=== PATIENT | male | born 1965 | race Caucasian/White ===

== ENCOUNTER 2023-02-16 07:37 | Day surgery (SDC) | payer MEDICAID, SELFPAY ==
[2023-02-16 07:55] VITALS: BP 142/91; PULSE 71; RESP 16; TEMP 36.4; O2SAT 97
[2023-02-16 08:01] LABS: Prothrombin Time 39.4 sec (9.0-11.6)
[2023-02-16 08:02] LABS: INR 4.02
[2023-02-16 08:18] VITALS: BP 94/66; PULSE 65; RESP 20; TEMP 36.3; O2SAT 99
--- NOTE | 2023-02-16 08:23 | W.PM.PROCNOT ---
Date of procedure: 02/16/23 Procedure: Left Lumbar 4/5 & 5/S1 facet injection Preop diagnosis includes pain secondary to lumbar spondylosis, Postop diagnosis same Under fluoroscopic guidance Solution injected: 2millilitersMarcaine 0.25% Anesthesia :none Immediate complications none Time out process compliant After informed consent obtained from the patient placed in the Prone proposition . area was prepped and draped in a sterile fashion using betadine. 25 gauge spinal needle inserted over each of the above mentioned target areas . [place] were directed towards the target under fluoroscopic guidance . after encountering each of the targets , no indication of intravascular intraneuronal or intrathecal needle tip placement. Then 0 .5 to 1 Milliliter was injected at each level. [place] removed postoperatively. patient transferred to recovery in stable condition to be discharged home after meeting criteria Surgeon: Kajal Donald
--- NOTE | 2023-02-16 10:29 | PC.NURSE ---
Procedure cancelled due to increased PT/INR, per Dr. Donald who spoke with patient at bedside.
== END 2023-02-16 08:30 | disposition home or self-care (01) ==
LOC: SURGOUT 07:37
PROVIDERS: PCP Family Medicine; Visit Provider Anesthesiology Pain Medicine
PROC: (CPT 64493; principal; 2023-02-16 08:40)
DX: M47.816 Spondylosis without myelopathy or radiculopathy, lumbar region (principal); Z53.8 Procedure and treatment not carried out for other reasons; R79.1 Abnormal coagulation profile
CPT/HCPCS: 64493; 36415; 85610

== ENCOUNTER 2023-03-09 09:02 | Day surgery (SDC) | payer MEDICAID, SELFPAY ==
[2023-03-09 09:38] VITALS: BP 119/75; PULSE 68; RESP 16; TEMP 36.7; O2SAT 98
[2023-03-09 09:38] LABS: INR 2.48
--- NOTE | 2023-03-09 10:32 | W.PM.PROCNOT ---
Date of procedure: 03/09/23 Pre-op diagnosis: lumbar spondylosis Post-op diagnosis: same Procedure: Left lumbar 4/5, 5/sacral 1 facet injection Under fluoroscopic guidance Solution injected: 2millilitersMarcaine 0.25% Anesthesia :none Immediate complications none Time out process compliant After informed consent obtained from the patient placed in the Prone proposition . area was prepped and draped in a sterile fashion using betadine. 25 gauge spinal needle inserted over each of the above mentioned target areas . [place] were directed towards the target under fluoroscopic guidance . after encountering each of the targets , no indication of intravascular intraneuronal or intrathecal needle tip placement. Then 0 .5 to 1 Milliliter was injected at each level. [place] removed postoperatively. patient transferred to recovery in stable condition to be discharged home after meeting criteria Anesthesia: Local Surgeon: Kajal Donald
[2023-03-09 10:33] VITALS: RESP 20
[2023-03-09 10:34] VITALS: BP 118/76; PULSE 66; O2SAT 98
[2023-03-09] MEDS: BUPIVACAINE HCL 0.25% PF 25 MG/10 ML VIAL 4 ML INJ (10:34)
[2023-03-09 10:37] VITALS: BP 115/68; PULSE 63; O2SAT 98
== END 2023-03-09 10:44 | disposition home or self-care (01) ==
LOC: SURGOUT 09:03
PROVIDERS: PCP Family Medicine; Visit Provider Anesthesiology Pain Medicine
DX: M47.816 Spondylosis without myelopathy or radiculopathy, lumbar region (principal)
CPT/HCPCS: 36415; 64493; 64494; 85610

== ENCOUNTER 2023-03-18 08:40 | Outpatient (OUT) | payer MEDICAID, SELFPAY ==
--- NOTE | 2023-03-18 08:52 | PM.CN ---
Consult Note: HPI Data of Consult Patient: known to practice within the last 3 years Consult date: 03/18/23 Requesting Physician: JYOTHI TERRY NP Primary Care Provider: AMIRAH ZAPATA Consult Narrative Narrative: Patient was here for f/u of dx MBB left L4/5. L5/S1. He received no relief of pain. Pain is low back worse with sitting walking . Pain starts in left lumbar area and radiates to left leg down to ankle. He has been taking 600mg gabapentin HS. Order is for 300mg HS. He states the increase dose better controls his pain. He states he gets yearly labs at PCP. Nursing will request lab results. If kidney fx is ok, may increase gabapentin dose. We also discussed getting LS MRI and he is agreeable. He has tried adult daycare coordinator, medication therapy, and interventional measures without relief. He feels the baclofen is not working well for him anymore. We can stop baclofen ad start tizanidine. Denies adverse SE of medications. Medication regimen assists patient with being better able to perform ADLS. No new sensorimotor or bowel or bladder issues. Percocet prescribed by PCP. cc:: CC: JYOTHI TERRY NP Review of Systems ROS Status of ROS 10 or more systems reviewed and unremarkable except as noted in history and below Musculoskeletal Reports: back pain PFSH PFSH Medical History Surgical History Meds Home Medications and Allergies Home Medications Medication Instructions Recorded Confirmed Type acetaminophen 325 mg tablet (Aphen) 325 mg PO Q6H PRN pain 02/09/23 03/09/23 History aspirin 81 mg tablet,delayed 81 mg .QD 02/09/23 History release baclofen 20 mg tablet 20 mg TID 02/09/23 History cholecalciferol (vitamin D3) 25 1,000 unit PO DAILY 02/09/23 03/09/23 History mcg (1,000 unit) capsule (Vitamin D3) gabapentin 300 mg capsule 600 mg .HS 02/09/23 History lisinopril 20 1 tab QDAY 02/09/23 History mg-hydrochlorothiazide 25 mg tablet metoprolol tartrate 25 mg tablet 12.5 mg PO .BID' 02/09/23 03/09/23 History omeprazole 40 mg capsule,delayed 40 mg .QD 02/09/23 History release rosuvastatin 20 mg tablet (Crestor) 20 mg PO DAILY 02/09/23 03/09/23 History vitamin B complex (B 1 tab PO DAILY 02/09/23 03/09/23 History Complex-Vitamin B12 tablet) warfarin 4 mg tablet 4 mg PO DAILY 02/09/23 03/09/23 History Allergies Allergy/AdvReac Type Severity Reaction Status Date / Time codeine Allergy Vomiting Verified 03/09/23 09:33 Exam Constitutional Documenting provider has reviewed patient's vital signs: yes Common normals: no apparent distress, average body habitus, oriented x3, no limitations, healthy appearing, alert and well nourished General appearance: cooperative, comfortable and well developed Orientation/consciousness: Yes awake, Yes oriented to person, Yes oriented to place and Yes oriented to time HENMT Common normals: normocephalic and moist oral mucous membranes Respiratory Common normals: normal respiratory effort, no retractions and no use of accessory muscles Effort & inspection: able to speak in complete sentences and symmetric chest movement Back & Pelvis Lumbar spine/lower back: normal to inspection, lumbar ROM normal, pain with ROM, paraspinal muscle tenderness and paraspinal muscle spasm Other: positive facet load L>R negative venkat negative SLR muscle strength 5/5 bilat with intact sensation Assessment and Plan Assessment and Plan (1) Muscle spasm: (2) Lumbar radiculopathy: (3) Lumbar spondylosis: Plan LS MRI see neurosurgeon as scheduled stop baclofen and start tizanidine may increase gabapentin to 600mg HS if kidney fx ok
== END 2023-03-18 08:41 | disposition home or self-care (01) ==
LOC: PM 08:41
PROVIDERS: PCP Family Medicine; Visit Provider Nurse Practitioner
DX: M62.838 Other muscle spasm (principal); M47.26 Other spondylosis with radiculopathy, lumbar region
CPT/HCPCS: G0463

== ENCOUNTER 2023-04-14 13:24 | Outpatient (OUT) | payer MEDICAID, SELFPAY ==
--- NOTE | 2023-04-14 14:00 | MR_ITS ---
[address] [address] Patient Name: MARIE BOND MRN: [facility]:[id number] date: 1965 Sex: M Assigned Patient Location: MRI Current Patient Location: Accession/Order Number: [id number] Exam Date: 04/14/2023 14:00 Report Date: 04/15/2023 09:29 At the request of: JYOTHI TERRY Procedure: MR lumbar spine wo con EXAM: MR lumbar spine wo con CLINICAL INDICATION: Lumbar Radiculopathy COMPARISON: Lumbar spine radiographs 12/28/2022. TECHNIQUE/PROTOCOL: Noncontrast lumbar spine MR protocol (Sagittal T1, T2, STIR and axial T1, T2 sequences). FINDINGS: Five lumbar-type vertebral bodies with maintained heights and alignment. Pedicles are congenitally shortened. Normal marrow signal. No acute prevertebral or paraspinal soft tissue abnormalities. Conus terminates at the inferior L1 endplate. Visualized distal spinal cord and the cauda equina are morphologically normal. Slightly prominent epidural lipomatosis. Multilevel spondylotic changes include diffuse disc desiccation and varying degrees of intervertebral disc height loss, osteophytic ridging, and facet/ligamentum flavum hypertrophy. T12-L1: No disc bulge or herniation. No high-grade spinal canal or foraminal narrowing. L1-L2: Small disc bulge indents the ventral thecal sac. This in conjunction with epidural lipomatosis together result in mild spinal canal narrowing. Mild bilateral foraminal narrowing. Mild bilateral facet/ligamentum flavum hypertrophy. L2-L3: Small disc bulge indents the ventral thecal sac. This in conjunction with epidural lipomatosis together result in mild spinal canal narrowing. Superimposed left foraminal disc protrusion results in advanced left foraminal narrowing. Mild right foraminal narrowing. Mild bilateral facet/ligamentum flavum hypertrophy. Small left facet joint effusion. L3-L4: Small disc bulge indents the ventral thecal sac and asymmetrically narrows the right greater than left lateral recesses. Mild spinal canal narrowing. Moderate to advanced right and moderate left foraminal narrowing. Mild bilateral facet/ligamentum flavum hypertrophy. L4-L5: Disc bulge with osteophytic ridging together indent the ventral thecal sac. This in conjunction with mild bilateral facet/ligamentum flavum hypertrophy overall results in moderate spinal canal narrowing. Advanced right and moderate to advanced left foraminal narrowing. L5-S1: No disc bulge or herniation. Epidural lipomatosis contributes to moderate spinal canal narrowing. Mild bilateral foraminal narrowing. MR/MR lumbar spine wo con IMPRESSION: 1. Multilevel spondylotic changes are superimposed on congenitally shortened pedicles and epidural lipomatosis. Spinal canal narrowing is moderate at L4-L5. 2. Foraminal narrowing is advanced on the left at L2-L3 and on the right at L4-L5. Foraminal narrowing is moderate to advanced on the right at L3-L4 and on the left at L4-L5. Electronically authenticated by: CLARK WILKINSON Date: 04/15/2023 09:29
== END 2023-04-14 13:25 | disposition home or self-care (01) ==
LOC: MRI 13:24
PROVIDERS: PCP Family Medicine; Visit Provider Nurse Practitioner
DX: M54.16 Radiculopathy, lumbar region (principal)
CPT/HCPCS: 72148

== ENCOUNTER 2023-05-05 09:43 | Outpatient (OUT) | payer MEDICAID, SELFPAY ==
--- NOTE | 2023-05-05 10:26 | PM.CN ---
Consult Note: HPI Data of Consult Patient: known to practice within the last 3 years Requesting Physician: Flor Javier NP Primary Care Provider: AMIRAH ZAPATA Consult Narrative Reason for consult: back pain cc:: CC: Flor Javier NP Review of Systems ROS Status of ROS 10 or more systems reviewed and unremarkable except as noted in history and below Musculoskeletal Reports: back pain, neck pain and joint pain PFSH PFSH Medical History Surgical History Meds Home Medications and Allergies Home Medications Medication Instructions Recorded Confirmed Type acetaminophen 325 mg tablet (Aphen) 325 mg PO Q6H PRN pain 02/09/23 03/09/23 History aspirin 81 mg tablet,delayed 81 mg .QD 02/09/23 History release baclofen 20 mg tablet 20 mg TID 02/09/23 History cholecalciferol (vitamin D3) 25 1,000 unit PO DAILY 02/09/23 03/09/23 History mcg (1,000 unit) capsule (Vitamin D3) gabapentin 300 mg capsule 600 mg .HS 02/09/23 History lisinopril 20 1 tab QDAY 02/09/23 History mg-hydrochlorothiazide 25 mg tablet metoprolol tartrate 25 mg tablet 12.5 mg PO .BID' 02/09/23 03/09/23 History omeprazole 40 mg capsule,delayed 40 mg .QD 02/09/23 History release rosuvastatin 20 mg tablet (Crestor) 20 mg PO DAILY 02/09/23 03/09/23 History vitamin B complex (B 1 tab PO DAILY 02/09/23 03/09/23 History Complex-Vitamin B12 tablet) warfarin 4 mg tablet 4 mg PO DAILY 02/09/23 03/09/23 History Allergies Allergy/AdvReac Type Severity Reaction Status Date / Time codeine Allergy Vomiting Verified 03/09/23 09:33 Exam Constitutional Documenting provider has reviewed patient's vital signs: yes Common normals: no apparent distress, oriented x3, healthy appearing, alert and well nourished General appearance: cooperative HENMT Common normals: normocephalic, hearing grossly normal bilaterally and moist oral mucous membranes Head and scalp: normocephalic Eye Common normals: PERRL Pupil: PERRL Neck & C-Spine Common normals: full ROM General: normal visual inspection Chest Common normals: inspection of chest normal Respiratory Common normals: normal respiratory effort, no retractions and no use of accessory muscles Back & Pelvis Lumbar spine/lower back: ROM limited, pain with ROM and straight leg raise negative bilaterally Sacroiliac joints: SI joint(s) abnormal Other: positive facet loading. Left SIJ tender over PSIS, pain with FABERS intermittent left thigh pain and altered sensation, intermittent shooting pain to left knee Extremity Common normals: normal to inspection and full ROM Neuro Common normals: oriented x3, CN's II-XII intact bilaterally, moves all extremities, no focal motor deficits, no sensory deficits noted and deep tendon reflexes 2+ bilaterally Sensorium/orientation: alert Gait (neuro): antalgic Motor exam: strength 5/5 throughout and no movement abnormalities noted Psych Common normals: mental status grossly normal, thought process normal, cooperative, affect normal, speech normal and activity/motor behavior normal Speech: normal speech Thought process: normal thought process Results Additional Findings Additional findings: I have checked an OARRS report on this patient today and there are no aberrancies noted in the prescribing history.?? A drug screen was completed and reviewed within the last year, and if there has not been a drug screen completed we ordered one today to monitor higher risk, state monitored pain medication use. As part of providing excellent, safe, comprehensive care, the following was completed at our patient's visit: 1. A medication reconciliation and review to ensure accurate knowledge of current/active medications, including asking our patients to inform us about any [id number] medications or herbal remedies/nutritional supplements/alternative remedies. 2. A review to specifically ensure our patients have had annual screening for: elevated body mass index (BMI), tobacco use, screening for depression, and screening for unhealthy alcohol use. When screening is concerning, patients are provided with education and the specific recommendation to discuss the concerning health issue and treatment options with their primary care provider. Assessment and Plan Assessment and Plan (1) Lumbar stenosis: (2) Lumbar radiculopathy: (3) Muscle spasm: (4) Anxiety: Plan MRI of lumbar spine reviewed, moderate spinal canal narrowing at L4-5, moderate to advanced foraminal narrowing at L2-5 levels continue current medications, tolerating regimen well without side effects schedule bilateral TFESI at L3-4 under fluoroscopy with PO valium f/u after injection, consider left SIJ workup in the future
== END 2023-05-05 09:44 | disposition home or self-care (01) ==
LOC: PM 09:43
PROVIDERS: PCP Family Medicine; Visit Provider Nurse Practitioner
DX: M54.16 Radiculopathy, lumbar region (principal); M62.838 Other muscle spasm; F41.9 Anxiety disorder, unspecified; M48.061 Spinal stenosis, lumbar region without neurogenic claudication
CPT/HCPCS: G0463

== ENCOUNTER 2023-05-24 07:40 | Day surgery (SDC) | payer MEDICAID, SELFPAY ==
[2023-05-24 07:55] VITALS: BP 146/85; PULSE 81; RESP 16; TEMP 36.2; O2SAT 97
[2023-05-24 08:15] LABS: Prothrombin Time 30.8 sec (9.0-11.6)
[2023-05-24] MEDS: 0.9 % SODIUM CHLORIDE 10 ML INJ (08:52)
[2023-05-24] MEDS: DEXAMETHASONE SODIUM PHOSPHATE 10 MG/ML VIAL INJ (08:52)
[2023-05-24] MEDS: BUPIVACAINE HCL 0.25% PF 25 MG/10 ML VIAL INJ (08:52)
[2023-05-24] MEDS: LIDOCAINE HCL 2% PF 100 MG/5 ML VIAL INJ (08:53)
[2023-05-24] MEDS: IOHEXOL 240 MG/ML - 10 ML VIAL INJ (08:53)
--- NOTE | 2023-05-24 08:54 | W.PM.PROCNOT ---
Date of procedure: 05/24/23 Pre-op diagnosis: Lumbar stenosis with neurogenic claudication Post-op diagnosis: same as pre-op Procedure: Procedure: Bilateral L3-4 transforaminal epidural steroid injection Medications: Bupivacaine 0.25% 2cc, dexamethasone 10mg The patient was seen and examined in the preoperative holding area.? Informed consent was obtained and placed on the chart.? Patient was brought to the medical procedure unit and placed in the prone position where a timeout was completed verifying the correct patient, procedure site, position, and planned special equipment using sterile aseptic technique.? Under direct fluoroscopic visualization a 25-gauge Quincke tipped spinal needle was advanced at level left L3-4 to the designated neural foramen where contrast dye was injected to show adequate spread.? There was no evidence of vascular or adverse uptake.? Epidural spread was appreciated.? The above-mentioned injectate was then placed in a 1.5 mL aliquot preceded by negative aspiration.? The needle was removed. The same procedure, at the same level, was completed on the opposite side. ? Patient was taken to the postprocedural recovery area and monitored for an appropriate length of time before found suitable for discharge in the accompaniment of a responsible adult. Anesthesia: Local Surgeon: Vanessa Medrano Pathology: none sent Condition: stable Disposition: no change
[2023-05-24 14:07] VITALS: BP 127/61; BP 157/67; PULSE 74; PULSE 82; RESP 18; O2SAT 96; O2SAT 97
== END 2023-05-24 08:57 | disposition home or self-care (01) ==
PROVIDERS: PCP Family Medicine; Visit Provider Anesthesiology
DX: M48.062 Spinal stenosis, lumbar region with neurogenic claudication (principal)
CPT/HCPCS: 36415; 64483; 85610; J1100; Q9966

== ENCOUNTER 2023-06-10 13:45 | Outpatient (OUT) | payer MEDICAID, SELFPAY ==
--- NOTE | 2023-06-10 14:58 | P.CN_ITS ---
Consult Note: HPI Data of Consult Patient: known to practice within the last 3 years Requesting Physician: Flor Javier NP Primary Care Provider: AMIRAH ZAPATA Consult Narrative Reason for consult: F/u Narrative: Sterling Bran a pleasant 57 year old male presents for evaluation and management of chronic low back pain. Today rating pain 5-6/10 in middle to low back radiating into bilateral legs. Patient notices his pain and radicular symptoms are worse with activity and when at work, improved at home. Patient reports the pain feels like a burning sensation in his back and a sharp shooting stabbing pain in legs. Patient notices 30% pain relief and reduction in radicular symptoms after bilateral L3-4 TFESI. Would like to further discus additional injection therapy and medication management. cc:: CC: Flor Javier NP Review of Systems ROS Status of ROS 10 or more systems reviewed and unremarkable except as noted in history and below Musculoskeletal Reports: back pain PFSH PFSH Medical History Surgical History H/O arthroscopic knee surgery ?Z98.890 - Other specified postprocedural states (ICD-10) H/O arthroscopy of shoulder ?Z98.890 - Other specified postprocedural states (ICD-10) H/O cervical spine surgery ?Z98.890 - Other specified postprocedural states (ICD-10) History of open heart surgery ?Z98.890 - Other specified postprocedural states (ICD-10) Meds Home Medications and Allergies Home Medications Medication Instructions Recorded Confirmed Type acetaminophen 325 mg tablet (Aphen) 325 mg PO Q6H PRN pain 02/09/23 05/24/23 History aspirin 81 mg tablet,delayed 81 mg .QD 02/09/23 History release baclofen 20 mg tablet 20 mg TID 02/09/23 History cholecalciferol (vitamin D3) 25 1,000 unit PO DAILY 02/09/23 05/24/23 History mcg (1,000 unit) capsule (Vitamin D3) gabapentin 300 mg capsule 600 mg .HS 02/09/23 History lisinopril 20 1 tab QDAY 02/09/23 History mg-hydrochlorothiazide 25 mg tablet metoprolol tartrate 25 mg tablet 12.5 mg PO .BID' 02/09/23 05/24/23 History omeprazole 40 mg capsule,delayed 40 mg .QD 02/09/23 History release rosuvastatin 20 mg tablet (Crestor) 20 mg PO DAILY 02/09/23 05/24/23 History vitamin B complex (B 1 tab PO DAILY 02/09/23 05/24/23 History Complex-Vitamin B12 tablet) warfarin 4 mg tablet 4 mg PO DAILY 02/09/23 05/24/23 History Allergies Allergy/AdvReac Type Severity Reaction Status Date / Time codeine Allergy Vomiting Verified 05/24/23 07:47 Exam Constitutional Documenting provider has reviewed patient's vital signs: yes Common normals: no apparent distress, oriented x3, healthy appearing, alert and well nourished General appearance: cooperative HENMT Common normals: normocephalic, hearing grossly normal bilaterally and moist oral mucous membranes Head and scalp: normocephalic Eye Common normals: PERRL Pupil: PERRL Neck & C-Spine Common normals: full ROM General: normal visual inspection Chest Common normals: inspection of chest normal Respiratory Common normals: normal respiratory effort, no retractions and no use of accessory muscles Back & Pelvis Lumbar spine/lower back: ROM limited, pain with ROM and straight leg raise negative bilaterally Sacroiliac joints: SI joint(s) abnormal Other: positive facet loading. Left SIJ tender over PSIS, pain with FABERS intermittent left thigh pain and altered sensation, intermittent shooting pain down to foot Extremity Common normals: normal to inspection and full ROM Neuro Common normals: oriented x3, CN's II-XII intact bilaterally, moves all extremit ies, no focal motor deficits, no sensory deficits noted and deep tendon reflexes 2+ bilaterally Sensorium/orientation: alert Gait (neuro): antalgic Motor exam: strength 5/5 throughout and no movement abnormalities noted Psych Common normals: mental status grossly normal, thought process normal, cooperative, affect normal, speech normal and activity/motor behavior normal Speech: normal speech Thought process: normal thought process Results Additional Findings Additional findings: I have checked an OARRS report on this patient today and there are no aberrancies noted in the prescribing history.?? A drug screen was completed and reviewed within the last year, and if there has not been a drug screen completed we ordered one today to monitor higher risk, state monitored pain medication use. As part of providing excellent, safe, comprehensive care, the following was completed at our patient's visit: 1. A medication reconciliation and review to ensure accurate knowledge of current/active medications, including asking our patients to inform us about any [id number] medications or herbal remedies/nutritional supplements/alternat jocelin remedies. 2. A review to specifically ensure our patients have had annual screening for: elevated body mass index (BMI), tobacco use, screening for depression, and screening for unhealthy alcohol use. When screening is concerning, patients are provided with education and the specific recommendation to discuss the concerning health issue and treatment options with their primary care provider. Assessment and Plan Assessment and Plan (1) Lumbar stenosis: (2) Lumbar radiculopathy: (3) Muscle spasm: (4) Anxiety: Plan bilateral L4-5 TFESI as patient continues to have lumbar radiculopathy and low back pain increase lyrica to 300mg AM 600mg HS continue baclofen 20mg BID PRN muscle spasms continue HEP f/u after injection
== END 2023-06-10 13:46 | disposition home or self-care (01) ==
LOC: PM 13:46
PROVIDERS: PCP Family Medicine; Visit Provider Nurse Practitioner
DX: M48.061 Spinal stenosis, lumbar region without neurogenic claudication (principal); M54.16 Radiculopathy, lumbar region; F41.9 Anxiety disorder, unspecified; M62.838 Other muscle spasm
CPT/HCPCS: G0463

== ENCOUNTER 2023-08-02 06:57 | Day surgery (SDC) | payer MEDICAID, SELFPAY ==
[2023-08-02 07:28] VITALS: BP 122/75; PULSE 76; RESP 16; TEMP 36.2; O2SAT 96
[2023-08-02 07:51] LABS: INR 3.96; Prothrombin Time 38.8 sec (9.0-11.6)
--- NOTE | 2023-08-02 08:30 | W.PM.PROCNOT ---
Date of procedure: 08/02/23 Pre-op diagnosis: Lumbar stenosis with neurogenic claudication Post-op diagnosis: same as pre-op Procedure: Procedure: Bilateral L4-5 transforaminal epidural steroid injection Medications: Bupivacaine 0.25% 2cc, lidocaine 1% 1cc, kenalog 80mg The patient was seen and examined in the preoperative holding area.? Informed consent was obtained and placed on the chart.? Patient was brought to the medical procedure unit and placed in the prone position where a timeout was completed verifying the correct patient, procedure site, position, and planned special equipment using sterile aseptic technique.? Under direct fluoroscopic visualization a 25-gauge Quincke tipped spinal needle was advanced at level left L4-5 to the designated neural foramen where contrast dye was injected to show adequate spread.? There was no evidence of vascular or adverse uptake.? Epidural spread was appreciated.? The above-mentioned injectate was then placed in a 1.5 mL aliquot preceded by negative aspiration.? The needle was removed. The same procedure, at the same level, was completed on the opposite side. ? Patient was taken to the postprocedural recovery area and monitored for an appropriate length of time before found suitable for discharge in the accompaniment of a responsible adult. Anesthesia: Local Surgeon: Vanessa Medrano Pathology: none sent Condition: stable Disposition: no change
[2023-08-02] MEDS: 0.9 % SODIUM CHLORIDE 10 ML INJ (08:31)
[2023-08-02] MEDS: BUPIVACAINE HCL 0.25% PF 25 MG/10 ML VIAL INJ (08:31)
[2023-08-02] MEDS: TRIAMCINOLONE ACETONIDE 40 MG/ML VIAL 80 MG INJ (08:32)
[2023-08-02] MEDS: IOHEXOL 240 MG/ML - 10 ML VIAL 12 MG INJ (08:32)
[2023-08-02] MEDS: LIDOCAINE HCL 2% PF 100 MG/5 ML VIAL 2 ML INJ (08:32)
[2023-08-02 08:33] VITALS: BP 144/63; BP 144/68; PULSE 92; RESP 18; O2SAT 96
== END 2023-08-02 08:36 | disposition home or self-care (01) ==
PROVIDERS: PCP Family Medicine; Visit Provider Anesthesiology
DX: M48.062 Spinal stenosis, lumbar region with neurogenic claudication (principal)
CPT/HCPCS: 36415; 64483; 85610; Q9966

== ENCOUNTER 2023-08-11 10:24 | Outpatient (OUT) | payer MEDICAID, SELFPAY ==
--- NOTE | 2023-08-11 10:54 | P.CN_ITS ---
Consult Note: HPI Data of Consult Patient: known to practice within the last 3 years Requesting Physician: Flor Javier NP Primary Care Provider: AMIRAH ZAPATA Consult Narrative Reason for consult: f/u Narrative: Sterling Bran a pleasant 57 year old male presents for evaluation and management of chronic back pain. Today pain 0/10 recently underwent bilateral L4-5 TFESI with 100% ongoing relief and functional improvement. Patient finding benefit to current medication regimen and HEP at this time. cc:: CC: Flor Javier NP Review of Systems ROS Status of ROS 10 or more systems reviewed and unremark able except as noted in history and below PFSH PFS Medical History S/P extracorporeal shock wave therapy ?Z98.890 - Other specified postprocedural states (ICD-10) Neck pain ?M54.2 - Cervicalgia (ICD-10) Low back pain ?M54.50 - Low back pain, unspecified (ICD-10) Numbness and tingling ?R20.0 - Anesthesia of skin (ICD-10) ?R20.2 - Paresthesia of skin (ICD-10) Obesity ?E66.9 - Obesity, unspecified (ICD-10) Hiatal hernia ?K44.9 - Diaphragmatic hernia without obstruction or gangrene (ICD-10) Sleep apnea ?G47.30 - Sleep apnea, unspecified (ICD-10) Heart valve disease ?I38 - Endocarditis, valve unspecified (ICD-10) Irregular heartbeat ?I49.9 - Cardiac arrhythmia, unspecified (ICD-10) High cholesterol ?E78.00 - Pure hypercholesterolemia, unspecified (ICD-10) Hypertension ?I10 - Essential (primary) hypertension (ICD-10) Surgical History H/O arthroscopic knee surgery ?Z98.890 - Other specified postprocedural states (ICD-10) H/O arthroscopy of shoulder ?Z98.890 - Other specified postprocedural states (ICD-10) H/O cervical spine surgery ?Z98.890 - Other specified postprocedural states (ICD-10) History of open heart surgery ?Z98.890 - Other specified postprocedural states (ICD-10) Meds Home Medications and Allergies Home Medications Medication Instructions Recorded Confirmed Type acetaminophen 325 mg tablet (Aphen) 325 mg PO Q6H PRN pain 02/09/23 08/02/23 History aspirin 81 mg tablet,delayed 81 mg PO DAILY 02/09/23 08/02/23 History release baclofen 20 mg tablet 20 mg PO TID 02/09/23 08/02/23 History cholecalciferol (vitamin D3) 25 1,000 unit PO DAILY 02/09/23 08/02/23 History mcg (1,000 unit) capsule (Vitamin D3) gabapentin 300 mg capsule 600 mg PO BEDTIME 02/09/23 08/02/23 History lisinopril 20 1 tab PO QDAY 02/09/23 08/02/23 History mg-hydrochlorothiazide 25 mg tablet metoprolol tartrate 25 mg tablet 12.5 mg PO Q12H 02/09/23 08/02/23 History omeprazole 40 mg capsule,delayed 40 mg PO DAILY 02/09/23 08/02/23 History release rosuvastatin 20 mg tablet (Crestor) 20 mg PO DAILY 02/09/23 08/02/23 History vitamin B complex (B 1 tab PO DAILY 02/09/23 08/02/23 History Complex-Vitamin B12 tablet) warfarin 4 mg tablet 4 mg PO DAILY 02/09/23 08/02/23 History diazepam 10 mg tablet (Valium) 10 mg PO ONCE 08/02/23 08/02/23 History Allergies Allergy/AdvReac Type Severity Reaction Status Date / Time codeine Allergy Vomiting Verified 05/24/23 07:47 Exam Constitutional Documenting provider has reviewed patient's vital signs: yes Common normals: no apparent distress, oriented x3, healthy appearing, alert and well nourished General appearance: cooperative [facility] Common normals: normocephalic, hearing grossly normal bilaterally and moist oral mucous membranes Head and scalp: normocephalic Eye Common normals: PERRL Pupil: PERRL Neck & C-Spine Common normals: full ROM General: normal visual inspection Chest Common normals: inspection of chest normal Respiratory Common normals: normal respiratory effort, no retractions and no use of accessory muscles Back & Pelvis Lumbar spine/lower back: normal to inspection, lumbar ROM normal and straight leg raise negative bilaterally Sacroiliac joints: SI joints normal Extremity Common normals: normal to inspection and full ROM Right lower extremity: knee joint Other: intermittent swelling to right posterior knee, more pain at night. pain with medial stress testing, no tenderness to palpation no edema redness or warmth. no instability on exam Neuro Common normals: oriented x3, CN's II-XII intact bilaterally, moves all extremities, no focal motor deficits, no sensory deficits noted and deep tendon reflexes 2+ bilaterally Sensorium/orientation: alert Gait (neuro): antalgic Motor exam: strength 5/5 throughout and no movement abnormalities noted Psych Common normals: mental status grossly normal, thought process normal, cooperative, affect normal, speech normal and activity/motor behavior normal Speech: normal speech Thought process: normal thought process Assessment and Plan Assessment and Plan (1) Right knee pain: (2) Lumbar stenosis: (3) Lumbar radiculopathy: (4) Muscle spasm: (5) Chronic prescription opiate use: Plan continue current medications, tolerating well without side effects defer right knee xray f/u 3 months
== END 2023-08-11 10:25 | disposition home or self-care (01) ==
LOC: PM 10:35
PROVIDERS: PCP Family Medicine; Visit Provider Nurse Practitioner
DX: M25.561 Pain in right knee (principal); M48.061 Spinal stenosis, lumbar region without neurogenic claudication; M54.16 Radiculopathy, lumbar region; Z79.891 Long term (current) use of opiate analgesic
CPT/HCPCS: G0463

== ENCOUNTER 2023-11-11 14:49 | Outpatient (OUT) | payer BC, SELFPAY ==
--- NOTE | 2023-11-11 16:05 | P.CN_ITS ---
Consult Note: HPI Data of Consult Patient: known to practice within the last 3 years Requesting Physician: Flor Javier NP Primary Care Provider: AMIRAH ZAPATA Consult Narrative Reason for consult: f/u Narrative: Sterling Bran a pleasant 57 year old male presents for evaluation and management of chronic back pain. Today pain 3/10 in low back. Patient reporting >80% improvement in pain and functional ability as a result of prior TFESI. Patient finding benefit to current medication regimen and HEP at this time. cc:: CC: Flor Javier NP Review of Systems ROS Status of ROS 10 or more systems reviewed and unremark able except as noted in history and below Musculoskeletal Reports: back pain PFSH PFSH Medical History S/P extracorporeal shock wave therapy ?Z98.890 - Other specified postprocedural states (ICD-10) Neck pain ?M54.2 - Cervicalgia (ICD-10) Low back pain ?M54.50 - Low back pain, unspecified (ICD-10) Numbness and tingling ?R20.0 - Anesthesia of skin (ICD-10) ?R20.2 - Paresthesia of skin (ICD-10) Obesity ?E66.9 - Obesity, unspecified (ICD-10) Hiatal hernia ?K44.9 - Diaphragmatic hernia without obstruction or gangrene (ICD-10) Sleep apnea ?G47.30 - Sleep apnea, unspecified (ICD-10) Heart valve disease ?I38 - Endocarditis, valve unspecified (ICD-10) Irregular heartbeat ?I49.9 - Cardiac arrhythmia, unspecified (ICD-10) High cholesterol ?E78.00 - Pure hypercholesterolemia, unspecified (ICD-10) Hypertension ?I10 - Essential (primary) hypertension (ICD-10) Surgical History H/O arthroscopic knee surgery ?Z98.890 - Other specified postprocedural states (ICD-10) History of open heart surgery ?Z98.890 - Other specified postprocedural states (ICD-10) H/O arthroscopy of shoulder ?Z98.890 - Other specified postprocedural states (ICD-10) H/O cervical spine surgery ?Z98.890 - Other specified postprocedural states (ICD-10) Meds Home Medications and Allergies Home Medications Medication Instructions Recorded Confirmed Type acetaminophen 325 mg tablet (Aphen) 325 mg PO Q6H PRN pain 02/09/23 08/02/23 History aspirin 81 mg tablet,delayed 81 mg PO DAILY 02/09/23 08/02/23 History release baclofen 20 mg tablet 20 mg PO TID 02/09/23 08/02/23 History cholecalciferol (vitamin D3) 25 1,000 unit PO DAILY 02/09/23 08/02/23 History mcg (1,000 unit) capsule (Vitamin D3) gabapentin 300 mg capsule 600 mg PO BEDTIME 02/09/23 08/02/23 History lisinopril 20 1 tab PO QDAY 02/09/23 08/02/23 History mg-hydrochlorothiazide 25 mg tablet metoprolol tartrate 25 mg tablet 12.5 mg PO Q12H 02/09/23 08/02/23 History omeprazole 40 mg capsule,delayed 40 mg PO DAILY 02/09/23 08/02/23 History release rosuvastatin 20 mg tablet (Crestor) 20 mg PO DAILY 02/09/23 08/02/23 History vitamin B complex (B 1 tab PO DAILY 02/09/23 08/02/23 History Complex-Vitamin B12 tablet) warfarin 4 mg tablet 4 mg PO DAILY 02/09/23 08/02/23 History diazepam 10 mg tablet (Valium) 10 mg PO ONCE 08/02/23 08/02/23 History Allergies Allergy/AdvReac Type Severity Reaction Status Date / Time codeine Allergy Vomiting Verified 05/24/23 07:47 Exam Constitutional Documenting provider has reviewed patient's vital signs: yes Common normals: no apparent distress, oriented x3, healthy appearing, alert and well nourished General appearance: cooperative [facility] Common normals: normocephalic, hearing grossly normal bilaterally and moist oral mucous membranes Head and scalp: normocephalic Eye Common normals: PERRL Pupil: PERRL Neck & C-Spine Common normals: full ROM General: normal visual inspection Chest Common normals: inspection of chest normal Respiratory Common normals: normal respiratory effort, no retractions and no use of accessory muscles Back & Pelvis Lumbar spine/lower back: normal to inspection, lumbar ROM normal and straight leg raise negative bilaterally Sacroiliac joints: SI joints normal Extremity Common normals: normal to inspection and full ROM Neuro Common normals: oriented x3, CN's II-XII intact bilaterally, moves all extremi ties, no focal motor deficits, no sensory deficits noted and deep tendon reflexes 2+ bilaterally Sensorium/orientation: alert Gait (neuro): antalgic Motor exam: strength 5/5 throughout and no movement abnormalities noted Psych Common normals: mental status grossly normal, thought process normal, cooperative, affect normal, speech normal and activity/motor behavior normal Speech: normal speech Thought process: normal thought process Results Additional Findings Additional findings: If on a controlled substance or opioids, I have checked an [place] report on this patient and there are no aberrancies noted in the prescribing history.??If on a controlled substance or opioid a drug screen was completed and reviewed within the last year, and if there has not been a drug screen completed we ordered one today to monitor higher risk, state monitored pain medication use. As part of providing excellent, safe, comprehensive care, the following was completed at our patient's visit: 1. A medication reconciliation and review to ensure accurate knowledge of current/active medications, including asking our patients to inform us about any [id number] medications or herbal remedies/nutritional supplements/alternative remedies. 2. A review to specifically ensure our patients have had annual screening for screening for depression, screening for tobacco use, and screening for unhealthy alcohol use. For concerning screenings had a discussion with the patient, provided patient education, and recommended follow-up with primary care provider when appropriate. If patient noted with a risk of falling, they received education on strength, gait, and balance training to prevent future risk of falling. Assessment and Plan Assessment and Plan (1) Lumbar stenosis: (2) Lumbar radiculopathy: (3) Muscle spasm: (4) Chronic prescription opiate use: Plan continue current medications, tolerating well without side effects f/u 3 months
== END 2023-11-11 14:50 | disposition home or self-care (01) ==
PROVIDERS: PCP Family Medicine; Visit Provider Nurse Practitioner
DX: M48.062 Spinal stenosis, lumbar region with neurogenic claudication (principal); M54.16 Radiculopathy, lumbar region; M62.838 Other muscle spasm; Z79.891 Long term (current) use of opiate analgesic
CPT/HCPCS: G0463

== ENCOUNTER 2024-02-10 14:59 | Outpatient (OUT) | payer BC, SELFPAY ==
--- NOTE | 2024-02-10 15:40 | PM.CN ---
Consult Note: HPI Data of Consult Patient: known to practice within the last 3 years Requesting Physician: Flor Javier NP Primary Care Provider: AMIRAH ZAPATA Consult Narrative Reason for consult: f/u Narrative: Sterling Bran a pleasant 58 year old male presents for evaluation and management of chronic back pain. Today pain 4/10 in low back stiffness, pain increases to 4/10 with standing, walking, bending, twisting, lifting. Mild benefit to heat/ice. Previously completed >6 weeks of PT without improvement in low back pain. Patient reporting >50% improvement in pain and functional ability as a result of prior TFESI. Patient finding benefit to current medication regimen and HEP at this time, denies medication side effects. cc:: CC: Flor Javier NP Review of Systems ROS Status of ROS 10 or more systems reviewed and unremarkable except as noted in history and below [facility] Medical History S/P extracorporeal shock wave therapy ?Z98.890 - Other specified postprocedural states (ICD-10) Neck pain ?M54.2 - Cervicalgia (ICD-10) Low back pain ?M54.50 - Low back pain, unspecified (ICD-10) Numbness and tingling ?R20.0 - Anesthesia of skin (ICD-10) ?R20.2 - Paresthesia of skin (ICD-10) Obesity ?E66.9 - Obesity, unspecified (ICD-10) Hiatal hernia ?K44.9 - Diaphragmatic hernia without obstruction or gangrene (ICD-10) Sleep apnea ?G47.30 - Sleep apnea, unspecified (ICD-10) Heart valve disease ?I38 - Endocarditis, valve unspecified (ICD-10) Irregular heartbeat ?I49.9 - Cardiac arrhythmia, unspecified (ICD-10) High cholesterol ?E78.00 - Pure hypercholesterolemia, unspecified (ICD-10) Hypertension ?I10 - Essential (primary) hypertension (ICD-10) Surgical History H/O arthroscopic knee surgery ?Z98.890 - Other specified postprocedural states (ICD-10) History of open heart surgery ?Z98.890 - Other specified postprocedural states (ICD-10) H/O arthroscopy of shoulder ?Z98.890 - Other specified postprocedural states (ICD-10) H/O cervical spine surgery ?Z98.890 - Other specified postprocedural states (ICD-10) Meds Home Medications and Allergies Home Medications ?Medication ?Instructions ?Recorded ?Confirmed ?Type acetaminophen 325 mg tablet (Aphen) 325 mg PO Q6H PRN pain 02/09/23 08/02/23 History aspirin 81 mg tablet,delayed 81 mg PO DAILY 02/09/23 08/02/23 History release baclofen 20 mg tablet 20 mg PO TID 02/09/23 08/02/23 History cholecalciferol (vitamin D3) 25 1,000 unit PO DAILY 02/09/23 08/02/23 History mcg (1,000 unit) capsule (Vitamin D3) gabapentin 300 mg capsule 600 mg PO BEDTIME 02/09/23 08/02/23 History lisinopril 20 1 tab PO QDAY 02/09/23 08/02/23 History mg-hydrochlorothiazide 25 mg tablet metoprolol tartrate 25 mg tablet 12.5 mg PO Q12H 02/09/23 08/02/23 History omeprazole 40 mg capsule,delayed 40 mg PO DAILY 02/09/23 08/02/23 History release rosuvastatin 20 mg tablet (Crestor) 20 mg PO DAILY 02/09/23 08/02/23 History vitamin B complex (B 1 tab PO DAILY 02/09/23 08/02/23 History Complex-Vitamin B12 tablet) warfarin 4 mg tablet 4 mg PO DAILY 02/09/23 08/02/23 History diazepam 10 mg tablet (Valium) 10 mg PO ONCE 08/02/23 08/02/23 History Allergies Allergy/AdvReac Type Severity Reaction Status Date / Time codeine Allergy Vomiting Verified 05/24/23 07:47 Exam Constitutional Documenting provider has reviewed patient's vital signs: yes Common normals: no apparent distress, oriented x3, healthy appearing, alert and well nourished General appearance: cooperative [facility] Common normals: normocephalic, hearing grossly normal bilaterally and moist oral mucous membranes Head and scalp: normocephalic Eye Common normals: PERRL Pupil: PERRL Neck & C-Spine Common normals: full ROM General: normal visual inspection Chest Common normals: inspection of chest normal Respiratory Common normals: normal respiratory effort, no retractions and no use of accessory muscles Back & Pelvis Lumbar spine/lower back: normal to inspection, ROM limited, pain with ROM and straight leg raise negative bilaterally Sacroiliac joints: SI joints normal Extremity Common normals: normal to inspection and full ROM Neuro Common normals: oriented x3, CN's II-XII intact bilaterally, moves all extremities, no focal motor deficits, no sensory deficits noted, deep tendon reflexes 2+ bilaterally and gait normal Sensorium/orientation: alert Motor exam: strength 5/5 throughout and no movement abnormalities noted Psych Common normals: mental status grossly normal, thought process normal, cooperative, affect normal, speech normal and activity/motor behavior normal Speech: normal speech Thought process: normal thought process Results Additional Findings Additional findings: If on a controlled substance or opioids, I have checked an [place] report on this patient and there are no aberrancies noted in the prescribing history.??If on a controlled substance or opioid a drug screen was completed and reviewed within the last year, and if there has not been a drug screen completed we ordered one today to monitor higher risk, state monitored pain medication use. As part of providing excellent, safe, comprehensive care, the following was completed at our patient's visit: 1. A medication reconciliation and review to ensure accurate knowledge of current/active medications, including asking our patients to inform us about any [id number] medications or herbal remedies/nutritional supplements/alternative remedies. 2. A review to specifically ensure our patients have had annual screening for screening for depression, screening for tobacco use, and screening for unhealthy alcohol use. For concerning screenings had a discussion with the patient, provided patient education, and recommended follow-up with primary care provider when appropriate. If patient noted with a risk of falling, they received education on strength, gait, and balance training to prevent future risk of falling. Assessment and Plan Assessment and Plan (1) Lumbar stenosis: (2) Lumbar radiculopathy: (3) Muscle spasm: Plan continue current medications, tolerating well without side effects f/u 6 months, sooner if needed
== END 2024-02-10 15:00 | disposition home or self-care (01) ==
LOC: PM 15:00
PROVIDERS: PCP Family Medicine; Visit Provider Nurse Practitioner
DX: M48.062 Spinal stenosis, lumbar region with neurogenic claudication (principal); M54.16 Radiculopathy, lumbar region; M62.838 Other muscle spasm
CPT/HCPCS: G0463

== ENCOUNTER 2024-08-10 15:26 | Outpatient (OUT) | payer BC, SELFPAY ==
--- NOTE | 2024-08-10 15:44 | PM.CN ---
Consult Note: HPI Data of Consult Patient: known to practice within the last 3 years Requesting Physician: Flor Javier NP Primary Care Provider: AMIRAH ZAPATA Consult Narrative Reason for consult: f/u Narrative: Sterling Bran a pleasant 58 year old male presents for evaluation and management of chronic back pain. Today pain 6/10 in low back stiffness, pain increases to 8/10 with standing, walking, bending, twisting, lifting. Mild benefit to heat/ice. Previously completed >6 weeks of PT without improvement in low back pain. Patient reporting less than 50% improvement in pain and functional ability as a result of prior TFESI. Patient finding benefit to current medication regimen and HEP at this time, denies medication side effects. cc:: CC: Flor Javier NP Review of Systems ROS Status of ROS 10 or more systems reviewed and unremarkable except as noted in history and below [facility] Medical History S/P extracorporeal shock wave therapy ?Z98.890 - Other specified postprocedural states (ICD-10) Neck pain ?M54.2 - Cervicalgia (ICD-10) Low back pain ?M54.50 - Low back pain, unspecified (ICD-10) Numbness and tingling ?R20.0 - Anesthesia of skin (ICD-10) ?R20.2 - Paresthesia of skin (ICD-10) Obesity ?E66.9 - Obesity, unspecified (ICD-10) Hiatal hernia ?K44.9 - Diaphragmatic hernia without obstruction or gangrene (ICD-10) Sleep apnea ?G47.30 - Sleep apnea, unspecified (ICD-10) Heart valve disease ?I38 - Endocarditis, valve unspecified (ICD-10) Irregular heartbeat ?I49.9 - Cardiac arrhythmia, unspecified (ICD-10) High cholesterol ?E78.00 - Pure hypercholesterolemia, unspecified (ICD-10) Hypertension ?I10 - Essential (primary) hypertension (ICD-10) Surgical History H/O arthroscopic knee surgery ?Z98.890 - Other specified postprocedural states (ICD-10) History of open heart surgery ?Z98.890 - Other specified postprocedural states (ICD-10) H/O arthroscopy of shoulder ?Z98.890 - Other specified postprocedural states (ICD-10) H/O cervical spine surgery ?Z98.890 - Other specified postprocedural states (ICD-10) Meds Home Medications and Allergies Home Medications ?Medication ?Instructions ?Recorded ?Confirmed ?Type acetaminophen 325 mg tablet (Aphen) 325 mg PO Q6H PRN pain 02/09/23 08/02/23 History aspirin 81 mg tablet,delayed 81 mg PO DAILY 02/09/23 08/02/23 History release baclofen 20 mg tablet 20 mg PO TID 02/09/23 08/02/23 History cholecalciferol (vitamin D3) 25 1,000 unit PO DAILY 02/09/23 08/02/23 History mcg (1,000 unit) capsule (Vitamin D3) gabapentin 300 mg capsule 600 mg PO BEDTIME 02/09/23 08/02/23 History lisinopril 20 1 tab PO QDAY 02/09/23 08/02/23 History mg-hydrochlorothiazide 25 mg tablet metoprolol tartrate 25 mg tablet 12.5 mg PO Q12H 02/09/23 08/02/23 History omeprazole 40 mg capsule,delayed 40 mg PO DAILY 02/09/23 08/02/23 History release rosuvastatin 20 mg tablet (Crestor) 20 mg PO DAILY 02/09/23 08/02/23 History vitamin B complex (B 1 tab PO DAILY 02/09/23 08/02/23 History Complex-Vitamin B12 tablet) warfarin 4 mg tablet 4 mg PO DAILY 02/09/23 08/02/23 History diazepam 10 mg tablet (Valium) 10 mg PO ONCE 08/02/23 08/02/23 History gabapentin 300 mg capsule 300 mg PO TID #90 caps 03/27/24 Rx gabapentin 300 mg capsule 300 mg PO TID #90 caps 05/22/24 Rx gabapentin 300 mg capsule 300 mg PO TID #90 caps 06/26/24 Rx gabapentin 300 mg capsule See Rx Instructions .Route 07/31/24 Rx .COMPLEX #90 caps Allergies Allergy/AdvReac Type Severity Reaction Status Date / Time codeine Allergy Vomiting Verified 05/24/23 07:47 Exam Constitutional Documenting provider has reviewed patient's vital signs: yes Common normals: no apparent distress, oriented x3, healthy appearing, alert and well nourished General appearance: cooperative [facility] Common normals: normocephalic, hearing grossly normal bilaterally and moist oral mucous membranes Head and scalp: normocephalic Eye Common normals: PERRL Pupil: PERRL Neck & C-Spine Common normals: full ROM General: normal visual inspection Chest Common normals: inspection of chest normal Respiratory Common normals: normal respiratory effort, no retractions and no use of accessory muscles Back & Pelvis Lumbar spine/lower back: normal to inspection, ROM limited, pain with ROM and straight leg raise negative bilaterally Sacroiliac joints: SI joints normal Other: increased pain following L4/5 with standing/walking improved with sitting and forward flexion Extremity Common normals: normal to inspection and full ROM Neuro Common normals: oriented x3, CN's II-XII intact bilaterally, moves all extremities, no focal motor deficits, no sensory deficits noted, deep tendon reflexes 2+ bilaterally and gait normal Sensorium/orientation: alert Motor exam: strength 5/5 throughout and no movement abnormalities noted Psych Common normals: mental status grossly normal, thought process normal, cooperative, affect normal, speech normal and activity/motor behavior normal Speech: normal speech Thought process: normal thought process Results Additional Findings Additional findings: If on a controlled substance or opioids, I have checked an [place] report on this patient and there are no aberrancies noted in the prescribing history.??If on a controlled substance or opioid a drug screen was completed and reviewed within the last year, and if there has not been a drug screen completed we ordered one today to monitor higher risk, state monitored pain medication use. As part of providing excellent, safe, comprehensive care, the following was completed at our patient's visit: 1. A medication reconciliation and review to ensure accurate knowledge of current/active medications, including asking our patients to inform us about any [id number] medications or herbal remedies/nutritional supplements/alternative remedies. 2. A review to specifically ensure our patients have had annual screening for screening for depression, screening for tobacco use, and screening for unhealthy alcohol use. For concerning screenings had a discussion with the patient, provided patient education, and recommended follow-up with primary care provider when appropriate. If patient noted with a risk of falling, they received education on strength, gait, and balance training to prevent future risk of falling. Assessment and Plan Assessment and Plan (1) Lumbar stenosis with neurogenic claudication: (2) Lumbar stenosis: (3) Lumbar radiculopathy: (4) Muscle spasm: Plan increase gabapentin 300mg-600mg BID as tolerated consider L4-5 vertiflex declining repeat TFESI f/u 3 months
== END 2024-08-10 15:27 | disposition home or self-care (01) ==
LOC: PM 15:26
PROVIDERS: PCP Family Medicine; Visit Provider Nurse Practitioner
DX: M48.062 Spinal stenosis, lumbar region with neurogenic claudication (principal); M54.16 Radiculopathy, lumbar region; M62.838 Other muscle spasm
CPT/HCPCS: G0463

== ENCOUNTER 2024-09-14 15:46 | Outpatient (OUT) | payer BC, SELFPAY ==
--- NOTE | 2024-09-14 15:50 | MR_ITS ---
[facility] [id number] Patient Name: MARIE BOND MRN: [id number] date: 1965 Sex: M Assigned Patient Location: MRI Current Patient Location: MRI Accession/Order Number: [id number] Exam Date: 09/14/2024 15:55 Report Date: 09/14/2024 17:36 At the request of: ELAN ROJAS Procedure: MR lumbar spine wo con MR lumbar spine wo con, 09/14/2024 3:55 PM EST INDICATION: Lumbar Stenosis COMPARISON: Prior MRI of lumbar spine dated 04/14/2023 TECHNIQUE: Multiplanar, multisequence MRI images of lumbar spine were obtained without contrast. FINDINGS: For dictation purposes, the lowest complete disc space in the lumbar spine considered as L5-S1. There is normal physiologic lumbar lordosis. The vertebral height is preserved. The conus medullaris is at the level of L1. No signal abnormality within the visualized spinal cord is noted. No neural foraminal narrowing or canal stenoses at the level of T12-L1 and L1-2 is noted. At the level of L2-L3, there are disc bulge with moderate bilateral neuroforaminal narrowing and moderate canal stenosis. At the level of L3-4, there are disc bulge with moderate bilateral neuroforaminal narrowing and moderate canal stenosis. At the level of L4-5, there are disc bulge with severe bilateral neuroforaminal narrowing and moderate canal stenosis. At the level of L5-S1, there are disc bulge with mild bilateral neuroforaminal narrowing and no canal stenosis. The paraspinal muscles are unremarkable. MR/MR lumbar spine wo con IMPRESSION: No significant interval change in moderate degenerative changes of lumbar spine in particular at L2-3, L3-L4 and L4-5. Electronically authenticated by: RYAN CHOI Date: 09/14/2024 17:36
--- NOTE | 2024-09-14 15:50 | XR_ITS ---
[facility] [id number] Patient Name: MARIE BOND MRN: [id number] date: 1965 Sex: M Assigned Patient Location: MRI Current Patient Location: Accession/Order Number: [id number] Exam Date: 09/14/2024 16:37 Report Date: 09/15/2024 11:34 At the request of: ELAN ROJAS Procedure: XR lumbar spine 6V w bending EXAMINATION: XR lumbar spine 6V w bending HISTORY: Lumbar Stenosis ; chronic lumbar pain radiating into legs; no known injury COMPARISON: No relevant comparison available. FINDINGS: BONES: Mild right convex curvature of lumbar spine. No fracture, spondylolisthesis, bone lesion. No change in alignment during flexion and extension. Mild degenerative facet arthropathy L3-4 through L5-S1. DISC SPACES: Moderate narrowing L2-3, L3-4. Marked narrowing L4-5, L5-S1. PARASPINOUS: Negative. No paraspinous abnormality is seen. OTHER: Negative. XR/XR lumbar spine 6V w bending IMPRESSION: 1. Moderate-marked degenerative changes. 2. No acute abnormality. Electronically authenticated by: ERICK AGUILAR Date: 09/15/2024 11:34
== END 2024-09-14 15:47 | disposition home or self-care (01) ==
LOC: MRI 15:46
PROVIDERS: PCP Family Medicine; Visit Provider Nurse Practitioner
DX: M48.062 Spinal stenosis, lumbar region with neurogenic claudication (principal); M51.369 Other intervertebral disc degeneration, lumbar region without mention of lumbar back pain or lower extremity pain
CPT/HCPCS: 72114; 72148

== ENCOUNTER 2024-09-25 11:31 | Outpatient (OUT) | payer BC, SELFPAY ==
--- OUTSIDE RECORDS SUMMARY | 2024-09-25 11:43 | XMS_ITS | CCD ---
Author Organization [facility] Care Team Providers Care Insurance Claims Clerk Name Role Phone ELTAHAWY, EHAB A Admitting Unavailable NESS EHAB A Attending Unavailable AMIRAH ZAPATA Referring Unavailable AMIRAH ZPAATA Primary Care Unavailable Amirah Zapata MD Primary Care Provider [phone] AMIRAH ZAPATA Primary Care Unavailable MOUNA LOPEZ Consulting Unavailable PRADEEP GOULD Admitting Unavailable HANH STONE Attending Unava ilable MOUNA LOPEZ Consulting Unavailable MOUNA LOPEZ Consulting Unavailable BENNY, DR MACARIO Primary Care Unavailable PILY .LUKE Consulting Unavailabl e DIAB .DARLIN Attending Unavailable DIAB .DARLIN Admitting Unavailable BENNY, DR MACARIO Primary Care Unavailable LAKSHMIPATHY ., QUINN Attending Bella vailable LAKSHMIPATHY ., QUINN Consulting Bella vailable LAKSHMIPATHY ., QUINN Admitting Bella vailable MISC, DR PEREZ Attending Unavailable MISC, DR PEREZ Consulting Unavailable MISC, DR PEREZ Admitting Unavailable BENNY, DR MACARIO Primary Care Unavailable BENNY, DR MACARIO Primary Care Unavailable LAKSHMIPATHY ., NARENDSARAATH Admitting Bella vailable LAKSHMIPATHY ., NARENDSARAATH Attending Bella vailable DELMER SCHNEIDER Admitting Unavailable DELMER SCHNEIDER Attending Unavailable DELMER SCHNEIDER Referring Unavailable Marcela ROTH, Vanessa Smiley Attending Unavailable Marcela ROTH, Vanessa Smiley Attending Unavailable Amirah Zapata MD Primary Care Provider Benny ROTH Amirah Cynthia Primary Care Provider [phone] SAMANTHA KWONG Attending Unavailable HEMMER, SUSAN Marie Attending Unavailable Unavailable Primary Care Provider Unavailabl e SERVICE, JOBST Referring Unavailable BENNY, RUGEN M Primary Care Unavailable SERVICE, JOBST Referring Unavailable BENNY, RUGEN M Primary Care Unavailable SERVICE, JOBST Referring Unavailable BENNY, RUGEN M Primary Care Unavailable SERVICE, JOBST Referring Unavailable BENNY, RUGEN M Primary Care Unavailable SERVICE, JOBST Referring Unavailable BENNY, RUGEN M Primary Care Unavailable SERVICE, JOBST Referring Unavailable BENNY, RUGEN M Primary Care Unavailable SERVICE, JOBST Referring Unavailable BENNY, RUGEN M Primary Care Unavailable SERVICE, JOBST Referring Unavailable BENNY, RUGEN M Primary Care Unavailable SERVICE, JOBST Referring Unavailable BENNY, RUGEN M Primary Care Unavailable SERVICE, JOBST Referring Unavailable BENNY, RUGEN M Primary Care Unavailable SERVICE, JOBST Referring Unavailable BENNY, RUGEN M Primary Care Unavailable BOUMEGOUAS, MANEL Attending Unavailable BENNY, RUGEN M Referring Unavailable BENNY, RUGEN M Primary Care Unavailable BOUMEGOUAS, MANEL Attending Unavailable BOUMEGOUAS, MANEL Referring Unavailable BENNY, RUGEN M Primary Care Unavailable BOUMEGOUAS, MANEL Attending Unavailable BOUMEGOUAS, MANEL Referring Unavailable BENNY, RUGEN M Primary Care Unavailable SERVICE, JOBST Referring Unavailable BENNY, RUGEN M Primary Care Unavailable SERVICE, JOBST Referring Unavailable BENNY, RUGEN M Primary Care Unavailable Allergies Allergy Classification Reported Allergen(s) Allergy Type Date of Onset Reaction(s) Facility (1 source) atorvastatin Drug Allergy 9 [facility] (4 sources) Codeine; Translations: [CODEINE] Drug Allergy 9 Itching [facility] (20 sources) Codeine Drug Allergy 2 Nausea, Itching, Nausea Only [facility] Medications Current Medications Medication Drug Class(es) Dates Sig (Normalized) Sig (Original) acetaminophen 500 mg oral tablet (20 sources) Start: 11-04-2022 acetaminophen (TYLENOL) tablet 1,000 mg Start: 08-07-2022 End: 08-09-2022 take 1 tablet by mouth every six hours as needed acetaminophen (TYLENOL) tablet 650 mg take 2 tablets by mo uth every six hours as needed for pain acetaminophen (TYLENOL EXTRA STRENGTH) 500 mg tablet Take 2 tablets (1,000 mg total) by mouth every 6 (six) hours as needed for pain. Active take 2 tablets by mo uth in the morning acetaminophen (Tylenol 8 Hour) 650 MG ER tablet Take 2 tablets by mouth in the morning. Do not crush, chew, or split. . Active take 1 tablet by angelo every eight hours as needed for pain acetaminophen (Tylenol 8 Hour) 650 MG ER tablet Take 650 mg by mouth every 8 (eight) hours if needed for mild pain. Do not crush, chew, or split. Active albuterol 0.83 mg/ml inhalation solution (4 sources) beta2-Adrenergic Agonist Start: 11-04-2022 End: 11-05-2022 albuterol (PROVENTIL) nebulizer solution 2.5 mg Start: 08-08-2022 End: 08-09-2022 2.5 mg, nebulization, Every 4 hours PRN, wheezing, Starting on 08/08/22 at 1017 Start: 07-30-2022 albuterol HFA (PROAIR HFA ; PROVENTIL HFA ; VENTOLIN HFA) 90 mcg/actuation inhaler amiodarone hydrochloride 200 mg oral tablet (7 sources) Antiarrhythmic Start: 09-03-2022 take 1 tablet by mouth twice daily amiodarone (CORDARONE) 200 MG tablet take 1 tablet by mouth twice a day 0 09/03/2022 Active amLODIPine 10 mg oral tablet (8 sources) Dihydropyridine Calcium Channel Giancarlo take 1 tablet by mouth once daily amLODIPine (NORVASC) 10 MG tablet amlodipine 10 mg tablet Take 1 tablet every day by oral route. 0 Active apixaban 5 mg oral tablet (2 sources) Factor Xa Inhibitor Start: 08-08-2022 End: 09-08-2022 take 1 tablet by mouth twice daily apixaban (ELIQUIS) 5 mg tablet Take 1 tablet (5 mg total) by mouth 2 (two) times a day. 60 each 0 08/09/2022 09/08/2022 Active aspirin 81 mg delayed release oral tablet (20 sources) Platelet Aggregation Inhibitor, Nonsteroidal Anti-inflammatory Drug Start: 08-25-2022 take 1 tablet by mouth in the morning aspirin 81 mg Indications: History of mitral valve replacement Take 1 tablet (81 mg total) by mouth in the morning. 90 tablet 1 09/21/2022 Active baclofen 20 mg oral tablet (20 sources) gamma-Aminobutyric Acid-ergic Agonist Start: 08-08-2022 End: 08-09-2022 take 20 mg by mouth once daily 20 mg, oral, Daily, First dose on 08/08/22 at 1045 Start: 06-12-2021 End: 08-03-2024 take 1 tablet by mouth in the morning baclofen (Lioresal) 20 MG tablet Indications: Cervical spondylosis Take 1 tablet (20 mg) by mouth in the morning and 1 tablet (20 mg) before bedtime. 200 tablet 3 06/27/2024 Active Start: 06-12-2021 take 1 tablet by angelo th in the morning baclofen (Lioresal) 20 MG tablet Take 1 tablet by mouth in the morning and 1 tablet before bedtime. 0 05/05/2023 Active calcium chloride 0.0014 meq/ml / potassium chloride 0.004 meq/ml / sodium chloride 0.103 meq/ml / sodium lactate 0.028 meq/ml injectable solution (2 sources) Start: 11-04-2022 lactated ringe rs IV soln infusion cholecalciferol 0.025 mg oral tablet (20 sources) Vitamin D take 1 tablet by mouth in the morning cholecalciferol (VITAMIN D3) 1,000 units tablet Take 1 tablet (1,000 Units total) by mouth in the morning. Active End: 06-27-2024 take 1 tablet by mouth in the morning cholecalciferol (Vitamin D-3) 25 MCG (1000 UT) tablet Take 1 tablet by mouth in the morning. 06/27/2024 Discontinued (Other) cholecalciferol, vitamin D3, (VITAMIN D3 ORAL) (1 source) take 1 tablet by mouth once daily cholecalciferol, vitamin D3, (VITAMIN D3 ORAL) Take 1 tablet by mouth 1 (one) time each day. 0 Active cyclobenzaprine hydrochloride 10 mg oral tablet (1 source) Muscle Relaxant take 1 tablet by mouth three times daily as needed cyclobenzaprine (Flexeril) 10 MG tablet Take 1 tablet by mouth 3 (three) times a day as needed. 0 Active diazePAM 2 mg oral tablet (3 sources) Benzodiazepine Start: 09-11-19 diazePAM (Valium) 2 MG tablet Indications: Claustrophobia (CMS/HCC) Take 1-2 tablets (2-4 mg) by mouth 1 time for 1 dose Take 15-30 minutes prior to MRI 2 tablet 09/11/2024 Active Start: 11-04-2022 End: 11-04-2022 diazePAM (VALIUM) tablet 5 m g Start: 11-04-2022 End: 11-04-2022 diazePAM (VALIUM) 5 MG table t diclofenac sodium 0.01 mg/mg topical gel (10 sources) Nonsteroidal Anti-inflammatory Drug Start: 06-24-2023 End: 06-27-2024 diclofenac sodium (Voltaren) 1 % gel Indications: Chronic pain of right knee , Primary osteoarthritis of right knee Apply 4 g topically in the morning and 4 g in the evening and 4 g before bedtime. 150 g 3 06/27/2024 Active doxycycline hyclate 100 mg oral tablet (2 sources) Tetracycline-class Drug Start: 11-04-2022 End: 11-09-2022 take 1 tablet by mouth twice daily doxycycline hyclate (VIBRA-TABS) 100 MG tablet Take 1 tablet by mouth 2 times daily for 5 days 10 tablet 0 11/04/2022 11/09/2022 Active 0.8 ml enoxaparin sodium 150 mg/ml prefilled syringe (6 sources) Low Molecular Weight Heparin Start: 10-22-2022 inject 0.8 mL by subcutaneous injection every twelve hours enoxaparin (LOVENOX) 120 MG/0.8ML injection INJECT 0.8 MLS SUBCUTANEOUSLY EVERY 12 HOURS DIRECTED BY HERBERT CALVIN TO BRIDGE WHILE OFF WARFARIN 0 10/22/2022 Active enoxaparin (LOVE NOX) 300 MG/3ML injection Inject 1 mg/kg into the skin 2 times daily 0 Active 2 ml fentaNYL 0.05 mg/ml injection (1 source) Opioid Agonist Start: 11-04-2022 fentaNYL (SUBLIMAZE) injection 25 mcg gabapentin 300 mg oral capsule (20 sources) Anti-epileptic Agent Start: 11-09-2023 take 1 capsule by mouth once daily gabapentin (Neurontin) 300 MG capsule Indications: RLS (restless legs syndrome) take 1 capsule by mouth once daily 30 capsule 2 11/09/2023 Active Start: 03-18-2023 End: 06-27-2024 gabapentin (NEURONTIN) 600 m g tablet Take by mouth nightly. 03/18/2023 Active Start: 07-20-2022 End: 08-09-2022 take 1 capsule by mouth twice daily gabapentin (NEURONTIN) 300 MG capsule Take 300 mg by mouth 2 times daily. 0 07/20/2022 Active gabapentin (Neur ontin) 300 MG capsule 1 capsule 1 (one) time each day at the same time. 0 Active hydroCHLOROthiazide 25 mg / lisinopril 20 mg oral tablet (20 sources) Thiazide Diuretic, Angiotensin Converting Enzyme Inhibitor Start: 05-02-2024 take 2 tablets by mouth once daily lisinopril-hydroCHLOROthiazide 20-25 MG tablet Indications: Essential hypertension (CMS/HCC) Take 2 tablets by mouth Daily 200 tablet 3 05/02/2024 Active Start: 05-02-2024 End: 06-27-2024 lisinopril-hydroCHLOROthiazi de 20-25 MG tablet Indications: Essential hypertension (CMS/HCC) TAKE 2 TABLETS IN THE MORNING 200 tablet 1 05/02/2024 06/27/2024 Discontinued (Duplicate order) Start: 11-25-2023 take 1 tablet by angelo th once daily Lisinopril-Hydrochlorothiazide Active 1 TAB PO Daily November 25, 2023 12:00am Start: 04-05-2023 take 2 tablets by mouth in the morning lisinopril-hydroCHLOROthiazide 20-25 MG tablet Indications: Essential hypertension (CMS/HCC) Take 2 tablets by mouth in the morning. 200 tablet 3 04/05/2023 Active Start: 10-27-2022 take 1 tablet by angelo th once in the morning lisinopril-hydroCHLOROthiazide (PRINZIDE,ZESTORETIC) 20-25 mg per tablet Indications: Primary hypertension Take 1 tablet by mouth in the morning. 0 10/27/2022 Active Start: 04-19-2022 take 1 tablet by angelo th once daily lisinopril-hydroCHLOROthiazide (PRINZIDE,ZESTORETIC) 20-25 mg per tablet Take 1 tablet by mouth 1 (one) time each day. 0 04/19/2022 Active KRILL OIL ORAL (1 source) take 1 capsule by mouth once daily KRILL OIL ORAL Take 1 capsule by mouth 1 (one) time each day. 0 Active labetalol hydrochloride 5 mg/ml injectable solution (1 source) beta-Adrenergic Giancarlo Start: 11-04-2022 labetalol (NORMODYNE;TRANDATE ) injection 5 mg 1 ml meperidine hydrochloride 25 mg/ml cartridge (1 source) Opioid Agonist Start: 11-04-2022 meperidine (DEMEROL) injection 12.5 mg 24 hr metoprolol succinate 100 mg extended release oral tablet (20 sources) beta-Adrenergic Giancarlo Start: 09-18-2024 take 1 tablet by mouth once daily metoprolol succinate XL (TOPROL XL) 100 mg 24 hr tablet Indications: Premature atrial complex Take 1 tablet (100 mg total) by mouth nightly. 90 tablet 3 09/18/2024 Active Start: 09-12-2024 End: 09-18-2024 take 1 tablet by mouth once daily metoprolol succinate XL (TOPROL XL) 100 mg 24 hr tablet Indications: Premature atrial complex Take 1 tablet (100 mg total) by mouth nightly. 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 90 tablet 3 08/24/2023 08/23/2024 Active Start: 09-07-2022 End: 09-07-2023 take 1 tablet by mouth twice daily metoprolol tartrate (LOPRESSOR) 25 MG tablet Take 25 mg by mouth 2 times daily 0 09/07/2022 09/07/2023 Active Start: 08-09-2022 End: 08-09-2023 take 1 tablet by mouth twice daily at bedtime metoprolol tartrate (LOPRESSOR) 50 MG tablet take 1 tablet by mouth twice a day - IN THE MORNING AND BEFORE BEDTIME 0 10/27/2022 Active Start: 08-08-2022 End: 08-09-2022 metoprolol tartrate (LOPRESS OR) tablet 25 mg Multiple Vitamin (multivitamin) capsule (3 sources) take 1 capsule by mouth once daily Multiple Vitamin (multivitamin) capsule Take 1 capsule by mouth Daily Active nystatin 100 unt/mg topical powder (7 sources) Polyene Antifungal Start: nystatin (MYCOSTATIN) 730096 UNIT/GM powder Apply 3 times daily. 15 g 1 10/02/2022 Active omeprazole 40 mg delayed release oral capsule (20 sources) Proton Pump Inhibitor Start: take 1 capsule by mouth once daily omeprazole (PriLOSEC) [address] capsule Indications: Gastroesophageal reflux disease with esophagitis without hemorrhage TAKE 1 CAPSULE BY MOUTH DAILY 100 capsule 3 07/10/2024 Active ondansetron 4 mg oral tablet (11 sources) Serotonin-3 Receptor Antagonist Start: End: take 1 tablet by mouth every eight hours as needed for nausea and vomiting ondansetron (Zofran) 4 MG tablet Take 1 tablet by mouth every 8 (eight) hours if needed for nausea or vomiting. 11/04/2022 Active Start: 11-04-2022 End: 11-05-2022 ondansetron (ZOFRAN) injecti on 4 mg oxyCODONE hydrochloride 5 mg oral tablet (2 sources) Opioid Agonist take 1 tablet by mouth every six hours as needed oxyCODONE (ROXICODONE) 5 MG immediate release tablet 1 tablet as needed Orally every 6 hrs 0 Active rosuvastatin calcium 20 mg oral tablet (20 sources) HMG-CoA Reductase Inhibitor Start: End: take 1 tablet by mouth every other day rosuvastatin (Crestor) 20 MG tablet Indications: Pure hypercholesterolemia (CMS/HCC) Take 1 tablet (20 mg) by mouth every other day 50 tablet 3 06/27/2024 Active Start: 11-25-2023 take 20 mg by mouth every other day Rosuvastatin Active 20 MG PO .COMPLEX November 25, 2023 12:00am 20 mg orally every other day; Start: 11-06-2022 rosuvastatin ( CRESTOR) 20 MG tablet take 1 tablet by angelo th every twenty-four hours rosuvastatin (CRESTOR) 20 mg tablet Take 1 tablet (20 mg total) by mouth daily. Active semaglutide (OZEMPIC) 0.25 m g or 0.5 mg (2 mg/3 mL) pen injector (18 sources) semaglutide (OZE MPIC) 0.25 mg or 0.5 mg (2 mg/3 mL) pen injector Inject 0.5 mg under the skin every 7 days. Active semaglutide (OZE MPIC) 0.25 mg or 0.5 mg (2 mg/3 mL) pen injector Inject 0.5 mg under the skin every 7 days. 0 Active Semaglutide-Weight Management (Wegovy) 1.7 MG/0.75ML solution auto-injector (1 source) Start: 09-23-2023 Semaglutide-Weight Management (Wegovy) 1.7 MG/0.75ML solution auto-injector Indications: Class 2 severe obesity with serious comorbidity and body mass index (BMI) of 39.0 to 39.9 in adult, unspecified obesity type (CMS/HCC) Inject 1.7 mg under the skin 1 (one) time per week 2.25 mL 1 09/23/2023 Active Semaglutide-Weight Management (Wegovy) 2.4 MG/0.75ML solution auto-injector (3 sources) Start: 08-31-2024 inject 2.4 mg by subcutaneous injection every week Semaglutide-Weight Management (Wegovy) 2.4 MG/0.75ML solution auto-injector Indications: Morbidly obese (CMS/HCC) Inject 2.4 mg under the skin 1 (one) time per week 3 mL 1 08/31/2024 Active Semaglutide-Weig ht Management (Wegovy) 2.4 MG/0.75ML solution auto-injector Inject under the skin Active 5 ml sodium chloride 9 mg/ml injection (11 sources) Start: 11-04-2022 sodium chlorid e flush 0.9 % injection 5-40 mL Start: 11-04-2022 0.9 % sodium c hloride infusion Start: 11-04-2022 sodium chlorid e flush 0.9 % injection 5-40 mL Start: 08-07-2022 End: 08-09-2022 sodium chloride 0.9 % flush 10 mL Start: 08-07-2022 End: 08-07-2022 sodium chloride 0.9 % bolus 250 mL traMADol hydrochloride 50 mg oral tablet (4 sources) Opioid Agonist Start: 11-03-2021 take 1 tablet by mouth four times daily as needed traMADol (ULTRAM) 50 MG tablet 1 tablet as needed Orally 4 times a day 0 11/03/2021 Active Start: 11-03-2021 End: 11-04-2022 traMADoL (ULTRAM) 50 mg tabl et 1 tablet (50 mg total) every 6 hours. Max Daily Amount: 200 mg 0 11/03/2021 08/09/2022 Discontinued (Stop Taking at Discharge) UNABLE TO FIND (1 source) UNABLE TO FIND B lack Currant Seed Oil every morning 0 Active warfarin sodium 2.5 mg oral tablet (20 sources) Vitamin K Antagonist Start: take 2-3 tablets by mouth in the evening warfarin (COUMADIN) 2.5 mg tablet Indications: Paroxysmal atrial fibrillation (CMS-HCC) , Anticoagulated on Coumadin , History of mitral valve replacement Take 2-3 tablets (5-7.5 mg total) by mouth in the evening. as directed by Herbert CALVIN (Medication Therapy Management). 270 tablet 1 03/09/2024 Active Start: 08-02-2023 End: 09-12-2024 take 2-3 tablets by mouth in the evening warfarin (COUMADIN) 2.5 mg tablet Indications: Anticoagulated on Coumadin , History of mitral valve replacement Take 2-3 tablets (5-7.5 mg total) by mouth in the evening. as directed by Herbert CALVIN (Medication Therapy Management). 270 tablet 09/12/2024 Active Start: 12-16-2022 take 1-2 tablets by mouth once daily in the evening warfarin (COUMADIN) 2.5 MG tablet TAKE 1 TO 2 TABLETS BY MOUTH EVERY EVENING DIRECTED BY HERBERT CALVIN 0 12/16/2022 Active Start: 09-09-2022 End: 11-04-2022 take 1-2 tablets by mouth once daily in the evening warfarin (COUMADIN) 2.5 MG tablet TAKE 1 TO 2 TABLETS BY MOUTH EVERY EVENING DIRECTED BY HERBERT CALVIN 0 09/09/2022 11/04/2022 Discontinued (Stop Taking at Discharge) Zinc (1 source) take 1 tablet by mouth once ramona y ZINC ORAL Take 1 tablet by mouth 1 (one) time each day. 0 Active Completed/Discontinued Medications Medication Drug Class(es) Dates Sig (Normalized) Sig (Original) acetaminophen 325 mg / oxyCODONE hydrochloride 5 mg oral tablet (16 sources) Opioid Agonist Start: 02-18-2023 End: 06-27-2024 take 1 tablet by mouth every six hours as needed for pain oxyCODONE-acetamino phen (Percocet) 5-325 MG tablet Take 1 tablet by mouth every 6 (six) hours if needed for moderate pain. 02/18/2023 06/27/2024 Discontinued (Therapy completed) Start: 12-31-2022 End: 06-27-2024 take 1 tablet by mouth every four hours as needed for pain and pain oxyCODONE-acetaminophen (Percocet) 7.5-325 MG tablet Take 1 tablet by mouth every 4 (four) hours if needed for moderate pain or severe pain. 12/31/2022 06/27/2024 Discontinued (Therapy completed) Start: 11-19-2022 End: 11-26-2022 take 1 tablet by mouth every six hours as needed for pain, then take 4 tablets by mouth once daily as needed for pain oxyCODONE-acetaminophen (PERCOCET) 7.5-325 MG per tablet Indications: Status post cervical spinal fusion Take 1 tablet by mouth every 6 hours as needed for Pain for up to 7 days. Intended supply: 30 days Max Daily Amount: 4 tablets 28 tablet 0 11/19/2022 11/26/2022 Active Start: 11-04-2022 End: 11-11-2022 take 1 tablet by mouth every four hours as needed for pain, then take 6 tablets by mouth once daily as needed for pain oxyCODONE-acetaminophen (PERCOCET) 7.5-325 MG per tablet Indications: Cervical radiculitis , 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 Take 1 tablet by mouth every 4 hours as needed for Pain for up to 7 days. Intended supply: 30 days Max Daily Amount: 6 tablets 42 tablet 0 11/04/2022 11/11/2022 Active atorvastatin 80 mg oral tablet (1 source) HMG-CoA Reductase Inhibitor Start: 08-08-2022 End: 08-09-2022 take 80 mg by mouth once daily 80 mg, oral, Nightly, First dose on 08/08/22 at 2100 25 ml dilTIAZem hydrochloride 5 mg/ml injection (1 source) Calcium Channel Giancarlo Start: 08-07-2022 End: 08-07-2022 dilTIAZem (CARDIZEM) injection 10 mg dilTIAZem (CARDIZEM) bolus from infusion 10 mg (1 source) Start: 08-08-2022 End: 08-08-2022 dilTIAZem (CARDIZEM) bolus from infusion 10 mg dilTIAZem HCl in 0.9% NaCL (CARDIZEM) 125 mg/125 mL (1 mg/mL) infusion (1 source) Start: 08-07-2022 End: 08-09-2022 dilTIAZem HCl in 0.9% NaCL (CARDIZEM) 125 mg/125 mL (1 mg/mL) infusion multivit with minerals/lutein (MULTIVITAMIN 50 PLUS ORAL) (1 source) End: 08-07-2022 multivit with minerals/lutein (MULTIVITAMIN 50 PLUS ORAL) multivitamin 0 08/07/2022 Discontinued (Entered in Error) naproxen sodium 220 mg oral tablet (1 source) Nonsteroidal Anti-inflammatory Drug End: 08-07-2022 naproxen sodium (Aleve) 220 mg tablet daily. 0 08/07/2022 Discontinued (Entered in Error) ondansetron ODT (ZOFRAN-ODT) disintegrating tablet 4 mg (1 source) Start: 08-07-2022 End: 08-09-2022 ondansetron ODT (ZOFRAN-ODT) disintegrating tablet 4 mg oxymetazoline hydrochloride 0.5 mg/ml nasal spray (1 source) Start: 08-08-2022 End: 08-09-2022 oxymetazoline (AFRIN) nasal spray 2 spray pantoprazole 40 mg delayed release oral tablet (1 source) Proton Pump Inhibitor Start: 08-09-2022 End: 08-09-2022 take 40 mg by mouth once daily before breakfast 40 mg, oral, Every morning before breakfast, First dose on 08/09/22 at 0700 Do not crush, chew, or split. tadalafil 20 mg oral tablet (1 source) Phosphodiesterase 5 Inhibitor End: 08-09-2022 take 1 tablet by mouth once daily tadalafiL (CIALIS) 20 mg tablet Take 1 tablet (20 mg total) by mouth 1 (one) time each day. 0 08/09/2022 Discontinued (Stop Taking at Discharge) vitamin b12 0.1 mg oral tablet (20 sources) Vitamin B12 Start: 08-08-2022 End: 08-09-2022 take 100 ug by mouth once daily 100 mcg, oral, Daily, First dose on 08/08/22 at 1045 Problems Active Problems Problem Classification Problem Date Documented Date Episodic/Chronic Anxiety disorders (1 source) Claustrophobia; Translations: [Claustrophobia] 09-11-2024 Chronic Cardiac dysrhythmias (20 sources) Atrial fibrillation with rapid ventricular response; Translations: [Unspecified atrial fibrillation] Onset: 08-07-2022 Chronic Complications of surgical procedures or medical care (4 sources) Postprocedural hemorrhage of skin and subcutaneous tissue following other procedure; Translations: [POSTP H SKIN AND SC TISS FLW OT PCR] Onset: 11-04-2022 Episodic Coronary atherosclerosis and other heart disease (20 sources) Atherosclerotic heart disease of [place] coronary artery without angina pectoris; Translations: [Coronary arteriosclerosis] Onset: 11-05-2022 08-24-2023 Chronic Disorders of lipid metabolism (10 sources) Pure hypercholesterolemia; Translations: [Pure hypercholesterolemia, unspecified] Onset: 04-05-2023 04-05-2023 Chronic Esophageal disorders (10 sources) Gastro-esophageal reflux disease with esophagitis; Translations: [Gastroesophageal reflux disease with esophagitis without hemorrhage] Onset: 02-11-2021 Chronic Essential hypertension (20 sources) Essential hypertension; Translations: [Essential (primary) hypertension] Onset: 11-22-2017 Chronic Heart valve disorders (20 sources) History of mitral valve replacement; Translations: [Presence of prosthetic heart valve] Onset: 08-25-2022 10-27-2022 Chronic Malaise and fatigue (8 sources) Fatigue; Translations: [Chronic fatigue, unspecified] Onset: 04-05-2023 04-05-2023 Chronic Osteoarthritis (10 sources) Osteoarthritis of knee; Translations: [Osteoarthritis of knee, unspecified] Onset: 04-05-2023 04-05-2023 Chronic Other aftercare (1 source) [facility] (current) use of aspirin; Translations: [GROUP HOME CURRENT USE OF ASPIRIN] Onset: 11-05-2022 Episodic Other connective tissue disease (1 source) Arthrodesis status; Translations: [Arthrodesis status] Onset: 03-18-2023 Episodic Other hereditary and degenerative nervous system conditions (10 sources) Restless legs; Translations: [Restless legs syndrome] Onset: 04-05-2023 04-05-2023 Chronic Other male genital disorders (8 sources) Male erectile dysfunction, unspecified; Translations: [Impotence of organic origin] Onset: 04-05-2023 04-05-2023 Chronic Other nervous system disorders (1 source) Other chronic pain; Translations: [OTHER CHRONIC PAIN] Onset: 01-07-2023 Chronic Other nervous system disorders (8 sources) Lesion of ulnar nerve; Translations: [Lesion of ulnar nerve, unspecified upper limb] Onset: 04-05-2023 04-05-2023 Chronic Other nervous system disorders (8 sources) Chronic pain; Translations: [Other chronic pain] Onset: 04-05-2023 04-05-2023 Chronic Other nervous system disorders (8 sources) Cataplexy and narcolepsy; Translations: [Narcolepsy in conditions classified elsewhere without cataplexy] Onset: 04-06-2023 04-06-2023 Chronic Other nutritional; endocrine; and metabolic disorders (8 sources) Obesity; Translations: [Obesity, unspecified] Onset: 04-05-2023 04-05-2023 Chronic Other nutritional; endocrine; and metabolic disorders (2 sources) Severe obesity; Translations: [Class 2 severe obesity due to excess calories with serious comorbidity and body mass index (BMI) of 35.0 to 35.9 in adult ([facility])] 06-27-2024 Chronic Residual codes; unclassified (10 sources) Obstructive sleep apnea syndrome; Translations: [Obstructive sleep apnea (adult) (pediatric)] Onset: 05-27-2020 Chronic Screening and history of mental health and substance abuse codes (1 source) Personal history of nicotine dependence; Translations: [PERSONAL HISTORY OF NICOTINE DEPEND] Onset: 11-05-2022 Episodic Spondylosis; intervertebral disc disorders; other back problems (20 sources) Spondylosis without myelopathy or radiculopathy, lumbar region; Translations: [Spondylosis without myelopathy or radiculopathy, lumbosacral region] Onset: 10-02-2022 Chronic Unclassified (2 sources) LOW BACK PAIN, UNSPECIFIED; Translations: [LOW BACK PAIN, UNSPECIFIED] Onset: 01-07-2023 Past or Other Problems Problem Classification Problem Date Documented Date Episodic/Chronic Genitourinary symptoms and ill-defined conditions (8 sources) Microscopic hematuria; Translations: [Other microscopic hematuria] Onset: 04-05-2023 04-05-2023 Episodic Heart valve disorders (4 sources) Cardiac murmur, unspecified; Translations: [CARDIAC MURMUR UNSPECIFIED] Onset: 07-31-2022 Episodic Nonspecific chest pain (8 sources) Atypical chest pain; Translations: [Other chest pain] Onset: 06-07-2019 06-24-2023 Episodic Other acquired deformities (1 source) Spondylolisthesis, cervical region; Translations: [Spondylolisthesis, cervical region] Onset: 10-02-2022 Episodic Other acquired deformities (1 source) Spondylolisthesis, site unspecified; Translations: [Spondylolisthesis, site unspecified] Onset: 10-02-2022 Episodic Other acquired deformities (17 sources) Spondylolisthesis; Translations: [Spondylolisthesis, cervicothoracic region] Onset: 10-02-2022 04-05-2023 Episodic Other acquired deformities (8 sources) Octavio legged; Translations: [Varus deformity, not elsewhere classified, left knee] Onset: 04-05-2023 04-05-2023 Episodic Other acquired deformities (9 sources) Acquired spondylolisthesis; Translations: [Spondylolisthesis, site unspecified] Onset: 10-02-2022 10-02-2022 Episodic Other aftercare (2 sources) long 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 care social worker (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) use of anticoagulants; Translations: [GROUP HOME CURRNT USE ANTICOAGULANTS] Onset: 10-27-2022 Episodic Other aftercare (20 sources) Anticoagulant effect; Translations: [long term care social worker (current) use of anticoagulants] Onset: 08-25-2022 10-27-2022 Episodic Other connective tissue disease (2 sources) History of cervical spine fusion; Translations: [Arthrodesis status] Episodic Other lower respiratory disease (18 sources) Hemoptysis; Translations: [Hemoptysis] Onset: 08-10-2022 Resolved: 10-27-2022 10-27-2022 Episodic Other nervous system disorders (8 sources) Paresthesia of hand ; Translations: [Paresthesia of skin] Onset: 04-05-2023 04-05-2023 Episodic Other non-traumatic joint disorders (10 sources) Pain in right knee; Translations: [Pain in joint, lower leg] Onset: 04-05-2023 04-05-2023 Episodic Other non-traumatic joint disorders (8 sources) Pain in left knee; Translations: [Pain in joint, lower leg] Onset: 04-05-2023 04-05-2023 Episodic Other nutritional; endocrine; and metabolic disorders (10 sources) Morbid obesity; Translations: [Morbid (severe) obesity due to excess calories] Onset: 11-22-2018 Resolved: 06-24-2023 Chronic Other nutritional; endocrine; and metabolic disorders (20 sources) H/O: raised blood lipids; Translations: [Personal history of other endocrine, nutritional and metabolic disease] Onset: 11-18-2022 11-18-2022 Episodic Other screening for suspected conditions (not mental disorders or infectious disease) (8 sources) Cardiovascular stress test abnormal; Translations: [Abnormal result of other cardiovascular function study] Onset: 04-05-2023 04-05-2023 Episodic Residual codes; unclassified (8 sources) Bilateral lower limb edema; Translations: [Localized edema] Onset: 04-05-2023 04-05-2023 Episodic Respiratory failure; insufficiency; arrest (adult) (18 sources) Acute respiratory failure; Translations: [Acute respiratory failure with hypoxia] Onset: 08-10-2022 Resolved: 10-27-2022 10-27-2022 Episodic Spondylosis; intervertebral disc disorders; other back problems (20 sources) Radiculopathy, cervical region; Translations: [Spinal instabilities, cervical region] Onset: 10-02-2022 06-24-2023 Episodic Unclassified (1 source) LOW BACK PAIN, UNSPECIFIED; Translations: [LOW BACK PAIN, UNSPECIFIED] Onset: 12-31-2022 Results Test Name Value Interpretation Reference Range Facility POCT EKGOrdered By: Akila Bess on 09-12-2024 [facility] POCT Protime / INRon 024 INR Coag (PPP) [Relative time] 4.5 {INR} Abnormal 0.8 - 1.2 [facility] Interpretation and review of laboratory results Abnormal [facility] CBC (INCLUDES DIFF/PLT)on Basophils (Bld) [#/Vol] 0.018 10*3/uL Normal 0-200 [facility] Comment on above: Performed By: #### 6 399, 43453 #### [facility] [address] [place], [place] [id number] Film Archivist: Noemi Delarosa #### 7600 #### [facility] [address], [address] [place] [address] Film Archivist: Charles Shabazz MD Basophils/100 WBC (Bld) 0.3 % Normal [facility] Comment on above: Performed By: #### 6 399, 27186 #### [facility] [address] [place] [address] Film Archivist: Noemi Delarosa #### 7600 #### [facility] [place] [address] Film Archivist: Charles Shabazz MD Eosinophils (Bld) [#/Vol] 0.171 10*3/uL Normal 15-500 [facility] Comment on above: Performed By: #### 6 399, 54776 #### [facility] [address] [place] [address] Film Archivist: Noemi Delarosa #### 7600 #### [facility] [address], [address] [place] [address] Film Archivist: Charles Shabazz MD Eosinophils/100 WBC (Bld) 2.9 % Normal [facility] Comment on above: Performed By: #### 6 399, 96033 #### [facility] [address] [place] [address] Film Archivist: Noemi Delarosa #### 7600 #### [facility] [address], [address] [place] [address] Film Archivist: Charles Shabazz MD Erythrocyte distribution width (RBC) [Ratio] 13.0 % Normal 11.0-15.0 [facility] Comment on above: Performed By: #### 6 399, 92341 #### [facility] [address] Film Archivist: Noemi Delarosa #### 7600 #### [facility] [address], [address] [place] [address] Film Archivist: Charles Shabazz MD Hematocrit (Bld) [Volume fraction] 42.3 % Normal 38.5-50.0 [facility] Comment on above: Performed By: #### 6 399, 24950 #### [facility] [address] Film Archivist: Noemi Delarosa #### 7600 #### [facility] [place] [address], [address] [place] [address] Film Archivist: Charles Shabazz MD Hemoglobin (Bld) [Mass/Vol] 14.2 g/dL Normal 13.2-17.1 [facility] Comment on above: Performed By: #### 6 399, 52104 #### [facility] [address] Film Archivist: Noemi Delarosa #### 7600 #### [facility] [place] [address] [address] , [address] [place] [address] Film Archivist: Charles Shabazz MD Lymphocytes (Bld) [#/Vol] 1.51 10*3/uL Normal 850-3900 [facility] Comment on above: Performed By: #### 6 399, 83679 #### [facility] [address] [place] [address] Film Archivist: Noemi Delarosa #### 7600 #### [facility] [place] [address] [address] , [address] [place] [address] Film Archivist: Charles Shabazz MD Lymphocytes/100 WBC (Bld) 25.6 % Normal [facility] Comment on above: Performed By: #### 6 399, 72341 #### [facility] [address] [place] [address] Film Archivist: Noemi Delarosa #### 7600 #### [facility] [address], [address] [place] [address] Film Archivist: Charles Shabazz MD MCH (RBC) [Entitic mass] 32.6 pg Normal 27.0-33.0 [facility] Comment on above: Performed By: #### 6 399, 17995 #### [facility] [address] Film Archivist: Noemi Delarosa #### 7600 #### [facility] [address], [address] [place] [address] Film Archivist: Charles Shabazz MD MCHC (RBC) [Mass/Vol] 33.6 g/dL Normal 32.0-36.0 [facility] Comment on above: Result Comment: For adults, a slight decrease in the calculated MCHC value (in the range of 30 to 32 g/dL) is most likely not clinically significant; however, it should be interpreted with caution in correlation with other red cell parameters and the patient's clinical condition. Performed By: #### 6 399, 51643 #### [facility] Film Archivist: Noemi Delarosa #### 7600 #### [facility] [address], [address] [place] [address] Film Archivist: Charles Shabazz MD MCV (RBC) [Entitic vol] 97.0 fL Normal 80.0-100.0 [facility] Comment on above: Performed By: #### 6 399, 74092 #### [facility] [address] [place] [address] Film Archivist: Noemi Delarosa #### 7600 #### [facility] [address], [address] [place], [place] [address] Film Archivist: Charles Shabazz MD Monocytes (Bld) [#/Vol] 0.584 10*3/uL Normal 200-950 [facility] Comment on above: Performed By: #### 6 399, 28877 #### [facility] [address] Film Archivist: Noemi Delarosa #### 7600 #### [facility] [address], [address] [place] [address] Film Archivist: Charles Shabazz MD Monocytes/100 WBC (Bld) 9.9 % Normal [facility] Comment on above: Performed By: #### 6 399, 60809 #### [facility] [address] Film Archivist: Noemi Delarosa #### 7600 #### [facility] [address], [address] [place] [address] Film Archivist: Charles Shabazz MD Neutrophils (Bld) [#/Vol] 3.617 10*3/uL Normal 2447-8220 [facility] Comment on above: Performed By: #### 6 399, 17656 #### [facility] [address] Film Archivist: Noemi Delarosa #### 7600 #### [facility] [address], [address] [place] [address] Film Archivist: Charles Shabazz MD Neutrophils/100 WBC (Bld) 61.3 % Normal [facility] Comment on above: Performed By: #### 6 399, 24208 #### [facility] [address] Film Archivist: Noemi Delarosa #### 7600 #### [facility] [address], [address] [place] [address] Film Archivist: Charles Shabazz MD Platelet mean volume (Bld) [Entitic vol] 10.4 fL Normal 7.5-12.5 [facility] Comment on above: Performed By: #### 6 399, 74311 #### [facility] [address] Film Archivist: Noemi Delarosa #### 7600 #### [facility] [address], [address] [place] [address] Film Archivist: Charles Shabazz MD Platelets (Bld) [#/Vol] 245 10*3/uL Normal 140-400 [facility] Comment on above: Performed By: #### 6 399, 66574 #### [facility] [address] [place] [phone] Film Archivist: Noemi Delarosa #### 7600 #### [facility] [place] [address] Film Archivist: Charles Shabazz MD RBC (Bld) [#/Vol] 4.36 10*6/uL Normal 4.20-5.80 [facility] Comment on above: Performed By: #### 6 399, 63873 #### [facility] Film Archivist: Noemi Delarosa #### 7600 #### [facility] [place] [address] Film Archivist: Charles Shabazz MD WBC (Bld) [#/Vol] 5.9 10*3/uL Normal 3.8-10.8 [facility] Comment on above: Performed By: #### 6 399, 59438 #### [facility] [address] [place], [place] [id number] Film Archivist: Noemi Delarosa #### 7600 #### [facility] [place] [address] Film Archivist: Charles Shabazz MD [facility]ABOL[facility]United [facility] 08-[facility]-2024 Albumin [Mass/Vol] 4.3 g/dL Normal 3.6-5.1 [facility] Comment on above: Performed By: #### 6 399, 20660 #### [facility] [address] [place], [place] [id number] Film Archivist: Noemi Delarosa #### 7600 #### [facility] [address], [address] [place] [address] Film Archivist: Charles Shabazz MD Albumin/Globulin [Mass ratio] 1.8 {ratio} Normal 1.0-2.5 [facility] Comment on above: Performed By: #### 6 399, 75745 #### [facility] [address] [place], [place] [id number] Film Archivist: Noemi Delarosa #### 7600 #### [facility] [address], [address] [place] [address] Film Archivist: Charles Shabazz MD ALP [Catalytic activity/Vol] 57 U/L Normal 35-144 [facility] Comment on above: Performed By: #### 6 399, 90828 #### [facility] [address] [place], [place] [id number] Film Archivist: Noemi Delarosa #### 7600 #### [facility] [address], [address] [place] [address] Film Archivist: Charles Shabazz MD ALT [Catalytic activity/Vol] 33 U/L Normal 9-46 [facility] Comment on above: Performed By: #### 6 399, 88722 #### [facility] [address] [place] [address] Film Archivist: Noemi Delarosa #### 7600 #### [facility] [address], [address] [place] [address] Film Archivist: Charles Shabazz MD AST [Catalytic activity/Vol] 28 U/L Normal 10-35 [facility] Comment on above: Performed By: #### 6 399, 74558 #### [facility] [address] [place], [place] [id number] Film Archivist: Noemi Delarosa #### 7600 #### [facility] [address] , [address] [place] [address] Film Archivist: Charles Shabazz MD Bilirubin [Mass/Vol] 0.6 mg/dL Normal 0.2-1.2 [facility] Comment on above: Performed By: #### 6 399, 66276 #### [facility] [address] [place] [address] Film Archivist: Noemi Delarosa #### 7600 #### [facility] [address], [address] [place] [address] Film Archivist: Charles Shabazz MD BUN/CREATININE RATIO SEE NOTE: Normal 02-18 [facility] Comment on above: Result Comment: Not Reported: BUN and Creatinine are within reference range. Performed By: #### 6 399, 03736 #### [facility] [address] Film Archivist: Noemi Delarosa #### 7600 #### [facility] [address], [address] [place] [address] Film Archivist: Charles Shabazz MD Calcium [Mass/Vol] 9.1 mg/dL Normal 8.6-10.3 [facility] Comment on above: Performed By: #### 6 399, 77644 #### [facility] [address] [place] [address] Film Archivist: Noemi Delarosa #### 7600 #### [facility] [address], [address] [place] [address] Film Archivist: Charles Shabazz MD Chloride [Moles/Vol] 100 mmol/L Normal 98-110 [facility] Comment on above: Performed By: #### 6 399, 99139 #### [facility] [address] [place] [address] Film Archivist: Noemi Delarosa #### 7600 #### [facility] [address] , [address] [place] [address] Film Archivist: Charles Shabazz MD CO2 [Moles/Vol] 29 mmol/L Normal 20-32 [facility] Comment on above: Performed By: #### 6 399, 82268 #### [facility] Film Archivist: Noemi Delarosa #### 7600 #### [facility] [address], [address] [place] [address] Film Archivist: Charles Shabazz MD Creatinine [Mass/Vol] 1.05 mg/dL Normal 0.70-1.30 [facility] Comment on above: Performed By: #### 6 399, 43179 #### [facility] [address] Film Archivist: Noemi Delarosa #### 7600 #### [facility] [address], [address] [place] [address] Film Archivist: Charles Shabazz MD GFR/1.73 sq M.predicted among non-blacks MDRD (S/P/Bld) [Vol rate/Area] 83 mL/min/{1.73_m2} Normal > OR = 60 [facility] Comment on above: Performed By: #### 6 399, 04877 #### [facility] [address] Film Archivist: Noemi Delarosa #### 7600 #### [facility] [address], [address] [place] [address] Film Archivist: Charles Shabazz MD Globulin (S) [Mass/Vol] 2.4 g/dL Normal 1.9-3.7 [facility] Comment on above: Performed By: #### 6 399, 08648 #### [facility] [address] Film Archivist: Noemi Delarosa #### 7600 #### [facility] [address], [address] [place] [address] Film Archivist: Charles Shabazz MD Glucose [Mass/Vol] 90 mg/dL Normal 65-99 [facility] Comment on above: Result Comment: Fasting reference interval Performed By: #### 6 399, 46835 #### [facility] [address] [place] [address] Film Archivist: Noemi Delarosa #### 7600 #### [facility] [address], [address] [place] [address] Film Archivist: Charles Shabazz MD Potassium [Moles/Vol] 4.0 mmol/L Normal 3.5-5.3 [facility] Comment on above: Performed By: #### 6 399, 27476 #### [facility] [address] [place] [address] Film Archivist: Noemi Delarosa #### 7600 #### [facility] [address], [address] [place] [address] Film Archivist: Charles Shabazz MD Protein [Mass/Vol] 6.7 g/dL Normal 6.1-8.1 [facility] Comment on above: Performed By: #### 6 399, 26280 #### [facility] [address] [place] [address] Film Archivist: Noemi Delarosa #### 7600 #### [facility] [place] [address] Film Archivist: Charles Shabazz MD Sodium [Moles/Vol] 136 mmol/L Normal 135-146 [facility] Comment on above: Performed By: #### 6 399, 16133 #### [facility] [address] [place], [place] [id number] Film Archivist: Noemi Delarosa #### 7600 #### [facility] [address], [address] [place] [address] Film Archivist: Charles Shabazz MD Urea nitrogen [Mass/Vol] 20 mg/dL Normal 7-25 [facility] Comment on above: Performed By: #### 6 399, 06417 #### [facility] [address] [place], [place] [id number] Film Archivist: Noemi Delarosa #### 7600 #### [facility] [address] [facility], [address] [place] [address] Film Archivist: Charles Shabazz MD LIPID PANEL, [address] Cholesterol [Mass/Vol] 169 mg/dL Normal <200 [facility] Comment on above: Order Comment: FASTI NG:YES FASTING: YES Performed By: #### 6 399, 90590 #### [facility] [address] [place], [place] [address] Film Archivist: Noemi Delarosa #### 7600 #### [facility] [address], [address] [place] [address] Film Archivist: Charles Shabazz MD Cholesterol in HDL [Mass/Vol] 45 mg/dL Normal > OR = 40 [facility] Comment on above: Order Comment: FASTI NG:YES FASTING: YES Performed By: #### 6 399, 43014 #### [facility] [address] [place], [place] [address] Film Archivist: Noemi Delarosa #### 7600 #### [facility] [address], [address] [place] [address] Film Archivist: Charles Shabazz MD Cholesterol in LDL [Mass/Vol] 97 mg/dL Normal [facility] Comment on above: Order Comment: FASTI NG:YES FASTING: YES Result Comment: Refe rence range: <100 Desirable range <100 mg/dL for primary prevention; <70 mg/dL for patients with CHD or diabetic patients with > or = 2 CHD risk factors. LDL-C is now calculated using the Ledy calculation, which is a validated novel method providing better accuracy than the Friedewald equation in the estimation of LDL-C. Roni DÍAZ et al. PRISCA. 2013;310(19): 1174-5985 (http://education.PlateJoy/faq/JPB376) Performed By: #### 6 399, 83160 #### [facility] [address] [place] [address] Film Archivist: Noemi Delarosa #### 7600 #### [facility] [address], [address] [place] [address] Film Archivist: Charles Shabazz MD Cholesterol.total/C holesterol in HDL [Mass ratio] 3.8 {ratio} Normal <5.0 [facility] Comment on above: Order Comment: FASTI NG:YES FASTING: YES Performed By: #### 6 399, 86445 #### [facility] [address] [place] [address] Film Archivist: Noemi Delarosa #### 7600 #### [facility] [address], [address] [place] [address] Film Archivist: Charles Shabazz MD NON HDL CHOLESTEROL 124 mg/dL (calc) Normal <130 [facility] Comment on above: Order Comment: FASTI NG:YES FASTING: YES Result Comment: For patients with diabetes plus 1 major ASCVD risk factor, treating to a non-HDL-C goal of <100 mg/dL (LDL-C of <70 mg/dL) is considered a therapeutic option. Performed By: #### 6 399, 24041 #### [facility] [address] Film Archivist: Noemi Delarosa #### 7600 #### [facility] [address], [address] [place] [address] Film Archivist: Charles Shabazz MD Triglyceride [Mass/Vol] 174 mg/dL High <150 [facility] Comment on above: Order Comment: FASTI NG:YES FASTING: YES Performed By: #### 6 399, 68522 #### [facility] [address] [place], [place] [id number] Film Archivist: Noemi Delarosa #### 7600 #### [facility] [address], [address] [place] [address] Film Archivist: Charles Shabazz MD PSA, TOTALon 08-22-2024 PSA, TOTAL 0.42 ng/mL Normal < OR = 4.00 [facility] Comment on above: Result Comment: The total PSA value from this assay system is standardized against the WHO standard. The test result will be approximately 20% lower when compared to the equimolar-standardized total PSA (Her[place]erto [place]). Comparison of serial PSA results should be interpreted with this fact in mind. This test was performed using the Siemens chemiluminescent method. Values obtained from different assay methods cannot be used interchangeably. PSA levels, regardless of value, should not be interpreted as absolute evidence of the presence or absence of disease. Performed By: #### 6 399, 15114 #### [facility] [address] [place] [address] Film Archivist: Noemi Delarosa #### 7600 #### [facility] [address] [facility], [address] [place] [address] Film Archivist: Charles Shabazz MD POCT Protime / INRon 13-2 024 INR Coag (PPP) [Relative time] 2.2 {INR} Abnormal 0.8 - 1.2 [facility] Interpretation and review of laboratory results Abnormal [facility] POCT Protime / INRon 06-30-2 024 INR Coag (PPP) [Relative time] 2.7 {INR} Abnormal 0.8 - 1.2 [facility] Interpretation and review of laboratory results Abnormal [facility] POCT Protime / INRon 20-2 024 INR Coag (PPP) [Relative time] 3.0 {INR} Abnormal 0.8 - 1.2 [facility] Interpretation and review of laboratory results Abnormal [facility] POCT Protime / INRon 30-2 024 INR Coag (PPP) [Relative time] 1.8 {INR} Abnormal 0.8 - 1.2 [facility] Interpretation and review of laboratory results Abnormal [facility] POCT Protime / INRon 19-2 024 INR Coag (PPP) [Relative time] 3.5 {INR} Abnormal 0.8 - 1.2 [facility] Interpretation and review of laboratory results Abnormal [facility] POCT Protime / INRon 07-2 024 INR Coag (PPP) [Relative time] 3.3 {INR} Abnormal 0.8 - 1.2 [facility] Interpretation and review of laboratory results Abnormal [facility] POCT Protime / INRon 26-2 024 INR Coag (PPP) [Relative time] 3.3 {INR} Abnormal 0.8 - 1.2 [facility] Interpretation and review of laboratory results Abnormal [facility] POCT Protime / INRon 0313-2 024 INR Coag (PPP) [Relative time] 3.4 {INR} Abnormal 0.8 - 1.2 [facility] Interpretation and review of laboratory results Abnormal [facility] POCT Protime / INRon 14-2 024 INR Coag (PPP) [Relative time] 2.0 {INR} Abnormal 0.8 - 1.2 [facility] Interpretation and review of laboratory results Abnormal [facility] POCT Protime / INRon 23-2 024 INR Coag (PPP) [Relative time] 2.1 {INR} Abnormal 0.8 - 1.2 [facility] Interpretation and review of laboratory results Abnormal [facility] POCT Protime / INRon 27-2 023 INR Coag (PPP) [Relative time] 2.4 {INR} Abnormal 0.8 - 1.2 [facility] Interpretation and review of laboratory results Abnormal [facility] XR CERVICAL SPINE (4-5 VIEWS )on 03-18-2023 XR CERVICAL SPINE (4-5 VIEWS) RADRPT EXAM: XR CERVICAL SPINE (4-5 VIEWS) HISTORY: TECH NOTES: Status post ACDF C5-6, C6-7, C7-T1 Status post cervical spinal fusion COMPARISON: None. TECHNIQUE: 5 views Report electronically signed by: Dr. Wyatt Alvarado IMPRESSION: Findings/impression: Discectomy of C5-T1 with disc spacers. Intact hardware. Maintained vertebral body heights. Multilevel endplate degenerative changes. No acute fracture or subluxation. Unremarkable soft tissues. Status post ACDF C5-6, C6-7, C7-T1 Interpreted by: Wyatt Alvarado MD Signed by: Wyatt Alvarado MD 03/18/23 Final result Normal [facility] XR COMPARISON OF OUTSIDE OTF MSon 03-18-2023 XR COMPARISON OF OUTSIDE FILMS RADRPT There is no result for this study. This is a placeholder for comparison films only. Final result Normal [facility] XR CERVICAL SPINE (2-3 VIEWS )on 01-01-2023 EXAMINATION: XR CERVICAL SPINE (2-3 VIEWS), 12/31/2022 1:17 PM EDT HISTORY: Status post cervical spinal fusion COMPARISON: Cervical spinal x-ray 11/19/2022 TECHNIQUE: 5 views of the cervical spine performed. FINDINGS: Procedure change from discectomy and interbody fusion spanning C5-T1, hardware appears intact. Spinal alignment is unchanged without significant suzie or retrolisthesis. Vertebral body heights are maintained without fracture. Mild multilevel intervertebral disc height loss and facet hypertrophy, not significantly changed. Lateral masses of C1 and C2 are well aligned. No prevertebral soft tissue swelling. Partially visualized changes from median sternotomy, with partially visualized bacteriologist medical projecting over the left upper chest wall. Report electronically signed by: Dr. Abdulkadir Chatterjee [facility] Abdulkadir Villalba M D - 01/01/2023 EXAMINATION: XR CERVICAL SPINE (2-3 VIEWS), 12/31/2022 1:17 PM EDT HISTORY: Status post cervical spinal fusion COMPARISON: Cervical spinal x-ray 11/19/2022 TECHNIQUE: 5 views of the cervical spine performed. FINDINGS: Procedure change from discectomy and interbody fusion spanning C5-T1, hardware appears intact. Spinal alignment is unchanged without significant suzie or retrolisthesis. Vertebral body heights are maintained without fracture. Mild multilevel intervertebral disc height loss and facet hypertrophy, not significantly changed. Lateral masses of C1 and C2 are well aligned. No prevertebral soft tissue swelling. Partially visualized changes from median sternotomy, with partially visualized bacteriologist medical projecting over the left upper chest wall. Report electronically signed by: Dr. Abdulkadir Chatterjee IMPRESSION: 1. No acute cervical spinal findings. 2. Procedure change from discectomy and interbody fusion spanning C5-T1, hardware appears intact. [facility] Work Phone: XR CERVICAL SPINE (2-3 VIEWS )Ordered By: Abdulkadir Chatterjee on 01-01-2023 [facility]: XR CERVICAL SPINE (2-3 VIEWS )on 12-31-2022 XR CERVICAL SPINE (2-3 VIEWS) RADRPT EXAMINATION: XR CERVICAL SPINE (2-3 VIEWS), 12/31/2022 1:17 PM EDT HISTORY: Status post cervical spinal fusion COMPARISON: Cervical spinal x-ray 11/19/2022 TECHNIQUE: 5 views of the cervical spine performed. FINDINGS: Procedure change from discectomy and interbody fusion spanning C5-T1, hardware appears intact. Spinal alignment is unchanged without significant suzie or retrolisthesis. Vertebral body heights are maintained without fracture. Mild multilevel intervertebral disc height loss and facet hypertrophy, not significantly changed. Lateral masses of C1 and C2 are well aligned. No prevertebral soft tissue swelling. Partially visualized changes from median sternotomy, with partially visualized bacteriologist medical projecting over the left upper chest wall. Report electronically signed by: Dr. Abdulkadir Chatterjee IMPRESSION: 1. No acute cervical spinal findings. 2. Procedure change from discectomy and interbody fusion spanning C5-T1, hardware appears intact. Status post cervical spinal fusion Interpreted by: Abdulkadir Chatterjee MD Signed by: Abdulkadir Chatterjee MD 01/01/23 Final result Normal [facility] Radiology Study observation (narrative) [facility] Work [facility]: XR Spine Lumbar 4+ Views*on 12-28-2022 XR Spine Lumbar 4+ Views* CLINICAL INDICATION: Left lumbar pain with sciatica COMPARISON: None. FINDINGS: There are 6 [id number] lumbar vertebral bodies. There is straightening of the normal lumbar lordosis. No acute fracture, dislocation or subluxation is seen. There is no spondylolysis or spondylolisthesis. Disc narrowing is moderate at L4-5 and mild at L2-3 and L3-4. There is facet hypertrophy at L4-5. There are marginal osteophytes at multiple levels. The visualized sacroiliac joints and yanick are unremarkable in appearance. The paravertebral soft tissues demonstrate normal appearance. IMPRESSION: 1. 6 lumbar vertebral bodies. 2. Straightened lordosis suggesting muscle spasm. 3. Disc narrowing, moderate at L4-5 and mild at L2-3 and L3-4. 4. Facet hypertrophy at L4-5. Report reported and signed by Huy Minor on 12/28/2022 1420 Normal [facility] Contract Administrative Assistant XR CERVICAL SPINE (2-3 VIEWS )on 11-19-2022 XR CERVICAL SPINE (2-3 VIEWS) [facility] CERVICAL SPINE (2-3 VIEWS) HISTORY: TECH NOTES: Post spinal fusion Status post cervical spinal fusion COMPARISON: 11/04/22 TECHNIQUE: 3 views Report electronically signed by: Dr. Wyatt Alvarado IMPRESSION: Findings/impression: No significant change from the prior exam. Posterior fusion of C5-C7. Intact hardware. Status post removal of the neck pain. Prevertebral soft tissue swelling, unchanged. Post spinal fusion Interpreted by: Wyatt Alvarado MD Signed by: Wyatt Alvarado MD 11/19/22 Final result Normal [facility] Findings/impression: No significant change from the prior exam. Posterior fusion of C5-C7. Intact hardware. Status post removal of the neck pain. Prevertebral soft tissue swelling, unchanged. [facility] EXAM: XR CERVICAL SPINE (2-3 VIEWS) HISTORY: TECH NOTES: Post spinal fusion Status post cervical spinal fusion COMPARISON: 11/04/22 TECHNIQUE: 3 views Report electronically signed by: Dr. Wyatt Alvarado [facility] Jenny, Wyatt Durbin MD - 11/19/2022 EXAM: XR CERVICAL SPINE (2-3 VIEWS) HISTORY: TECH NOTES: Post spinal fusion Status post cervical spinal fusion COMPARISON: 11/04/22 TECHNIQUE: 3 views Report electronically signed by: Dr. Wyatt Alvarado IMPRESSION: Findings/impression: No significant change from the prior exam. Posterior fusion of C5-C7. Intact hardware. Status post removal of the neck pain. Prevertebral soft tissue swelling, unchanged. [employer] Phone: Radiology Study observation (narrative) [employer] Phone: XR CERVICAL SPINE (2-3 VIEWS )Ordered By: Wyatt Alvarado on 11-19-2022 [employer] Phone: [place] FOR SURGICAL PROCEDURESon 11-06-2022 Radiology exam is complete. No Radiologist dictation. Please follow up with ordering provider. [facility] 11-04-2022 aPTT Coag (Bld) [Time] 28 s [facility] Activated Partial Thrombopla stin Timeon 11-04-2022 aPTT Coag (Bld) [Time] 28 s Normal 23-32 [facility] Comment on above: Performed By: #### P TT, PTINR #### [place] [address] Ph. [phone] Blood glucose - POCTon 11-04 Glucose [Mass/Vol] 92 mg/dL [facility] [employer] Work Phone: QC OK? [facility] Work Phone: [place] FOR SURGICAL PROCEDUR ESon 11-04-2022 [place] FOR SURGICAL PROCEDURES RADRPT Radiology exam is complete. No Radiologist dictation. Please follow up with ordering provider. Cervical spine anterior fusion C5-T1 18.28 mGy 33.8 sec 8 images Final result Normal [facility] No Panel Informationon 11-04 [facility] Work Phone: Prothrombin Time with INRon 11-04-2022 INR Coag (PPP) [Relative time] 1.10 {INR} Normal 0.90-1.10 [facility] Comment on above: Result Comment: Joey mmended INR values\X0D0A\(Updated according to ACCP Evidence-Based Clinical Practice Guidelines, Chest. 2014)\X0D0A\2.0 - 3.0 Treatment of venous thrombosis\X0D0A\2.0 - 3.0 Treatment of pulmonary embolism\X0D0A\2.0 - 3.0 Prevention of systemic embolism in atrial fibrillation, left ventricular thrombus and bioprosthetic mitral valves\X0D0A\2.0 - 3.0 Antiphospholipid antibodies(with previous arterial or venous thromboembolism)\X0D0A\2.0 - 3.0 Rheumatic mitral valve disease (in sinus rhythm) with left atrial diameter > 55mm\X0D0A\2.0 - 3.0 Mechanical heart valves in aortic position\X0D0A\2.5 - 3.5 Mechanical heart valves in mitral position Performed By: #### P TT, PTINR ####[facility] [place], [place] [address]Hv. [phone] PT Coag (PPP) [Time] 14.4 s Normal 11.9-14.4 [facility] Comment on above: Performed By: #### P TT, PTINR ####[address] [place], [place] [address]Df. [phone] Protime-INRon 11-04-2022 INR Coag (Bld) [Relative time] 1.10 {INR} [facility] Comment on above: Recommended INR values (Updated according to ACCP Evidence-Based Clinical Practice Guidelines, Chest. 2014) 2.0 - 3.0 Treatment of venous thrombosis 2.0 - 3.0 Treatment of pulmonary embolism 2.0 - 3.0 Prevention of systemic embolism in atrial fibrillation, left ventricular thrombus and bioprosthetic mitral valves 2.0 - 3.0 Antiphospholipid antibodies(with previous arterial or venous thromboembolism) 2.0 - 3.0 Rheumatic mitral valve disease (in sinus rhythm) with left atrial diameter > 55mm 2.0 - 3.0 Mechanical heart valves in aortic position 2.5 - 3.5 Mechanical heart valves in mitral position PT Coag (PPP) [Time] 14.4 s [facility] XR CERVICAL SPINE (2-3 VIEWS )on 11-04-2022 XR CERVICAL SPINE (2-3 VIEWS) RADRPT EXAM: XR CERVICAL SPINE (2-3 VIEWS) 11/04/2022 COMPARISON STUDY: Outside cervical spine bending views 06/18/2022. FINDINGS: AP, lateral, and swimmer's type views for 3 views of the cervical spine were obtained. HISTORY: TECH NOTES: S/P acdf C5-T1 S/P acdf C5-T1 Report electronically signed by: Dr. Nickolas Soto IMPRESSION: 1. There is soft tissue swelling and gas about the neck, drain placement, and cervical collar noted from recent postsurgical changes. Prior median sternotomy is also identified. 2. There is slight reversal of the cervical spinal curvature with recent multilevel discectomies with interbody fusion noted at C5-C6 through C7-T1 levels noted. Hardware is well seated and the alignment is satisfactory. Degenerative narrowing of the predental space with associated sclerosis and osteophytosis noted. No acute compression fracture. 3. Overall cervical spinal pedicles appear short likely contributing to developmental canal stenosis. The lung apices are clear. The tip of the drain to the left of the midline is noted at C7 level. There is diffuse thickening of the prevertebral soft tissues with gas related to recent postsurgical change. S/P acdf C5-T1 Interpreted by: Nickolas Soto MD Signed by: Nickolas Soto MD 11/05/22 Final result Normal [facility] Comment on above: Order Comment: Just - AP, Lateral, Swimmers MRI COMPARISON OF OUTSIDE FI LMSon 10-02-2022 MRI COMPARISON OF OUTSIDE FILMS RADRPT There is no result for this study. This is a placeholder for comparison films only. Final result Normal [facility] There is no result for this study. This is a placeholder for comparison films only. [facility] XR COMPARISON OF OUTSIDE OTF MSon 10-02-2022 XR COMPARISON OF OUTSIDE FILMS RADRPT There is no result for this study. This is a placeholder for comparison films only. Final result Normal [facility] There is no result for this study. This is a placeholder for comparison films only. [facility] There is no result for this study. This is a placeholder for comparison films only. [facility] Hemogram and platelets WO di fferential panel (Bld)on 08-09-2022 Erythrocyte distribution width (RBC) [Ratio] 12.2 % Normal 11.0-14.8 [facility] Comment on above: Performed By: #### 2 4317-0 ####[facility] [id number] [place] [address] Hematocrit (Bld) [Volume fraction] 36.9 % Low 39.0-49.0 [facility] Comment on above: Performed By: #### 2 4317-0 ####[facility] [id number] [place] [address] Hemoglobin (Bld) [Mass/Vol] 13.0 g/dL Low 13.5-17.5 [facility] Comment on above: Performed By: #### 2 4317-0 ####[address] [address] MCH 32.7 pcg Normal 27.0-34.0 [facility] Comment on above: Performed By: #### 2 4317-0 ####[address] [address] MCHC (RBC) [Mass/Vol] 35.2 g/dL Normal 30.8-35.3 [facility] Comment on above: Performed By: #### 2 4317-0 ####[address] [address] MCV (RBC) [Entitic vol] 92.7 fL Normal 80.0-97.0 [facility] Comment on above: Performed By: #### 2 4317-0 ####[address] [address] Platelet mean volume (Bld) [Entitic vol] 10.4 fL Normal 6.2-12.1 [facility] Comment on above: Performed By: #### 2 4317-0 ####[address] [address] Platelets (Bld) [#/Vol] 261 10*3/uL Normal 142-424 [facility] Comment on above: Performed By: #### 2 4317-0 ####[address] [address] RBC (Bld) [#/Vol] 3.98 10*6/uL Low 4.30-5.70 [facility] Comment on above: Performed By: #### 2 4317-0 ####[facility] [id number] [place] [address] WBC (Bld) [#/Vol] 14.2 10*3/uL High 4.6-10.2 [facility] Comment on above: Performed By: #### 2 4317-0 ####[facility] [id number] [place] [address] Erythrocyte distribution width (RBC) [Ratio] 12.2 % 11.0 - 14.8 % [facility] Hematocrit (Bld) [Volume fraction] 36.9 % Low 39.0 - 49.0 % [facility] Hemoglobin (Bld) [Mass/Vol] 13.0 g/dL Low 13.5 - 17.5 g/dL [facility] Interpretation and review of laboratory results Abnormal [facility] MCH (RBC) [Entitic mass] 32.7 pg [facility] MCHC (RBC) [Mass/Vol] 35.2 g/dL 30.8 - 35.3 g/dL [facility] MCV (RBC) [Entitic vol] 92.7 fL [facility] Platelet mean volume (Bld) [Entitic vol] 10.4 fL [facility] Platelets (Bld) [#/Vol] 261 10*3/uL [facility] RBC (Bld) [#/Vol] 3.98 10*6/uL Low [facility] WBC (Bld) [#/Vol] 14.2 10*3/uL [facility] Basic metabolic 2000 panelon 08-08-2022 Albumin [Mass/Vol] 4.0 g/dL Normal 3.5-4.8 [facility] Comment on above: Performed By: #### 2 4321-2 #### [facility] [address] [place] [address] ALP [Catalytic activity/Vol] 51 U/L Normal 32-91 [facility] Comment on above: Performed By: #### 2 4321-2 #### [facility] [address] [place] [address] ALT [Catalytic activity/Vol] 17 U/L Normal 7-52 [facility] Comment on above: Performed By: #### 2 4321-2 #### [facility] [address] [place] [address] AST [Catalytic activity/Vol] 16 U/L Normal 15-41 [facility] Comment on above: Performed By: #### 2 4321-2 #### [facility] [address] [place] [address] Bilirubin [Mass/Vol] 1.1 mg/dL Normal 0.3-1.2 [facility] Comment on above: Performed By: #### 2 4321-2 #### [facility] [address] [place] [address] Bilirubin, Indirect 0.9 mg/dL Normal 0.0-1.0 [facility] Comment on above: Performed By: #### 2 4321-2 #### [facility] [address] [place] [address] Bilirubin.indirect [Mass/Vol] 0.2 mg/dL Normal <=0.5 [facility] Comment on above: Performed By: #### 2 4321-2 #### [facility] [address] [place] [address] Protein [Mass/Vol] 6.3 g/dL Normal 6.1-7.9 [facility] Comment on above: Performed By: #### 2 4321-2 #### [facility] [address] [place] [address] Anion gap [Moles/Vol] 8 mmol/L 6 - 18 [facility] Calcium [Mass/Vol] 8.9 mg/dL 8.9 - 10. 3 mg/dL [facility] Chloride [Moles/Vol] 105 mmol/L 98 - 107 mmol/L [facility] CO2 [Moles/Vol] 24 mmol/L 22 - 32 mmol/L [facility] Creatinine [Mass/Vol] 0.99 mg/dL 0.60 - 1.30 mg/dL [facility] GFR/1.73 sq M.predicted MDRD (S/P/Bld) [Vol rate/Area] 90 mL/min/{1.73_m2} - PINF [facility] Comment on above: Effective June 07, 2022, calculation based on the Chronic Kidney Disease Epidemiology Collaboration (CKD-EPI) equation refit without adjustment for race. Glucose [Mass/Vol] 106 mg/dL High 70 - 99 mg/dL [facility] Interpretation and review of laboratory results Abnormal [facility] Potassium [Moles/Vol] 4.1 mmol/L 3.6 - 5.1 mmol/L [facility] Sodium [Moles/Vol] 137 mmol/L 136 - 145 mmol/L [facility] Urea nitrogen [Mass/Vol] 22 mg/dL High 8 - 20 mg/dL [facility] Urea nitrogen/Creatinine [Mass ratio] 22.2 mg/mg High 12.0 - 20.0 [facility] Glucose Auto test strip (Bld ) [Mass/Vol]on 08-08-2022 Glucose [Mass/Vol] 105 mg/dL High 70-99 [facility] Comment on above: Performed By: #### 2 340-8 ####[facility] [id number] [place] [address] Glucose [Mass/Vol] 105 mg/dL High 70 - 99 mg/dL [facility] Interpretation and review of laboratory results Abnormal [facility] Glucose [Mass/Vol] 109 mg/dL High 70-99 [facility] Comment on above: Performed By: #### 2 340-8 ####[facility] [id number] [place] [address] Glucose [Mass/Vol] 109 mg/dL High 70 - 99 mg/dL [facility] Interpretation and review of laboratory results Abnormal [facility] Hemogram and platelets WO di fferential panel (Bld)on 08-08-2022 Basophils (Bld) [#/Vol] 0.04 10*3/uL Normal 0.00-0.20 [facility] Comment on above: Performed By: #### 2 4317-0 #### [facility] [address] [place] [address] Basophils/100 WBC (Bld) 0.3 % Normal 0.0-2.0 [facility] Comment on above: Performed By: #### 2 4317-0 #### [facility] [address] [place] [address] Eosinophils (Bld) [#/Vol] 0.18 10*3/uL Normal 0.00-0.70 [facility] Comment on above: Performed By: #### 2 4317-0 #### [facility] [address] [place] [address] Eosinophils/100 WBC (Bld) 1.2 % Normal 0.0-7.0 [facility] Comment on above: Performed By: #### 2 4317-0 #### [facility] [address] [place] [address] Erythrocyte distribution width (RBC) [Ratio] 12.2 % Normal 11.0-14.8 [facility] Comment on above: Performed By: #### 2 4317-0 #### [facility] [address] [place] [address] Hematocrit (Bld) [Volume fraction] 41.1 % Normal 39.0-49.0 [facility] Comment on above: Performed By: #### 2 4317-0 #### [facility] [address] [place] [address] Hemoglobin (Bld) [Mass/Vol] 14.1 g/dL Normal 13.5-17.5 [facility] Comment on above: Performed By: #### 2 4317-0 #### [facility] [address] [place] [address] Immature granulocytes (Bld) [#/Vol] 0.04 10*3/uL Normal [facility] Comment on above: Performed By: #### 2 4317-0 #### [facility] [address] [place] [address] Immature granulocytes/100 WBC (Bld) 0.3 % Normal 0.0-1.2 [facility] Comment on above: Performed By: #### 2 4317-0 #### [facility] [address] [place] [address] Lymphocytes (Bld) [#/Vol] 1.74 10*3/uL Normal 1.00-4.80 [facility] Comment on above: Performed By: #### 2 4317-0 #### [facility] [address] [place] [address] Lymphocytes/100 WBC (Bld) 11.6 % Low 17.9-49.6 [facility] Comment on above: Performed By: #### 2 4317-0 #### [facility] [address] [place] [address] MCH 32.0 pcg Normal 27.0-34.0 [facility] Comment on above: Performed By: #### 2 4317-0 #### [facility] [address] [place] [address] MCHC (RBC) [Mass/Vol] 34.3 g/dL Normal 30.8-35.3 [facility] Comment on above: Performed By: #### 2 4317-0 #### [facility] [address] [place] [address] MCV (RBC) [Entitic vol] 93.4 fL Normal 80.0-97.0 [facility] Comment on above: Performed By: #### 2 4317-0 #### [facility] [address] [place] [address] Monocytes (Bld) [#/Vol] 0.94 10*3/uL High 0.00-0.90 [facility] Comment on above: Performed By: #### 2 4317-0 #### [facility] [address] [place] [address] Monocytes/100 WBC (Bld) 6.3 % Normal 0.0-12.0 [facility] Comment on above: Performed By: #### 2 4317-0 #### [facility] [address] [place] [address] Neutrophils Absolute 12.04 K/mcL High 1.80-7.70 [facility] Comment on above: Performed By: #### 2 4317-0 #### [facility] [address] [place] [address] Neutrophils/100 WBC (Bld) 80.3 % High 38.1-75.5 [facility] Comment on above: Performed By: #### 2 4317-0 #### [facility] [address] [place] [address] Platelet mean volume (Bld) [Entitic vol] 10.5 fL Normal 6.2-12.1 [facility] Comment on above: Performed By: #### 2 4317-0 #### [facility] [address] [place] [address] Platelets (Bld) [#/Vol] 290 10*3/uL Normal 142-424 [facility] Comment on above: Performed By: #### 2 4317-0 #### [facility] [address] [place] [address] RBC (Bld) [#/Vol] 4.40 10*6/uL Normal 4.30-5.70 [facility] Comment on above: Performed By: #### 2 4317-0 #### [facility] [address] [place] [address] WBC (Bld) [#/Vol] 15.0 10*3/uL High 4.6-10.2 [facility] Comment on above: Performed By: #### 2 4317-0 #### [facility] [address] [place] [address] Basophils (Bld) [#/Vol] 0.04 10*3/uL [facility] Basophils/100 WBC (Bld) 0.3 % 0.0 - 2.0 % [facility] Eosinophils (Bld) [#/Vol] 0.18 10*3/uL [facility] Eosinophils/100 WBC (Bld) 1.2 % 0.0 - 7.0 % [facility] Erythrocyte distribution width (RBC) [Ratio] 12.2 % 11.0 - 14.8 % [facility] Hematocrit (Bld) [Volume fraction] 41.1 % 39.0 - 49.0 % [facility] Hemoglobin (Bld) [Mass/Vol] 14.1 g/dL 13.5 - 17.5 g/dL [facility] Immature granulocytes (Bld) [#/Vol] 0.04 10*3/uL K/mcL [facility] Immature granulocytes/100 WBC (Bld) 0.3 % 0.0 - 1.2 % [facility] Interpretation and review of laboratory results Abnormal [facility] Lymphocytes (Bld) [#/Vol] 1.74 10*3/uL [facility] Lymphocytes/100 WBC (Bld) 11.6 % Low 17.9 - 49.6 % [facility] MCH (RBC) [Entitic mass] 32.0 pg [facility] MCHC (RBC) [Mass/Vol] 34.3 g/dL 30.8 - 35.3 g/dL [facility] MCV (RBC) [Entitic vol] 93.4 fL [facility] Monocytes (Bld) [#/Vol] 0.94 10*3/uL High [facility] Monocytes/100 WBC (Bld) 6.3 % 0.0 - 12.0 % [facility] Neutrophils (Bld) [#/Vol] 12.04 10*3/uL High [facility] Neutrophils/100 WBC (Bld) 80.3 % High 38.1 - 75.5 % [facility] Platelet mean volume (Bld) [Entitic vol] 10.5 fL [facility] Platelets (Bld) [#/Vol] 290 10*3/uL [facility] RBC (Bld) [#/Vol] 4.40 10*6/uL [facility] WBC (Bld) [#/Vol] 15.0 10*3/uL [facility] Hepatic function 2000 panelo n 08-08-2022 Albumin [Mass/Vol] 4.0 g/dL 3.5 - 4.8 g/dL Tr [facility] ALP [Catalytic activity/Vol] 51 U/L [facility] ALT [Catalytic activity/Vol] 17 U/L [facility] AST [Catalytic activity/Vol] 16 U/L [facility] Bilirubin [Mass/Vol] 1.1 mg/dL 0.3 - 1.2 mg/dL [facility] Bilirubin.direct [Mass/Vol] 0.2 mg/dL NINF - 0.5 mg/dL [facility] Bilirubin.indirect [Mass/Vol] 0.9 mg/dL 0.0 - 1.0 mg/dL [facility] Interpretation and review of laboratory results Normal [facility] h Protein [Mass/Vol] 6.3 g/dL 6.1 - 7.9 g/dL Tr [facility] PT Coag (PPP) [Time]on 08-08 aPTT Coag (Bld) [Time] 28.0 s Normal 23.3-35.3 [facility] Comment on above: Performed By: #### 5 902-2 ####[facility] ([facility]) [facility] [id number] [place] [address] INR Coag (PPP) [Relative time] 1.1 {INR} NINF - 5.0 [facility] Comment on above: The recommended ther apeutic INR range for most cardiac indications is 2.0-3.0 For high intensity therapy (i.e. mechanical heart valves), the recommended range is 2.5-3.5 Interpretation and review of laboratory results Normal [facility] PT Coag (Bld) [Time] 14.6 s [facility] aPTT Coag (Bld) [Time]on aPTT Coag (PPP) [Time] 28.0 s [facility] Interpretation and review of laboratory results Normal [facility] Basic metabolic 2000 panelon 08-07-2022 Anion gap [Moles/Vol] 5 mmol/L Low 6 - 18 [facility] Calcium [Mass/Vol] 8.6 mg/dL Low 8.9 - 10. 3 mg/dL [facility] Chloride [Moles/Vol] 107 mmol/L 98 - 107 mmol/L [facility] CO2 [Moles/Vol] 24 mmol/L 22 - 32 mmol/L [facility] Creatinine [Mass/Vol] 1.01 mg/dL 0.60 - 1.30 mg/dL [facility] GFR/1.73 sq M.predicted MDRD (S/P/Bld) [Vol rate/Area] 88 mL/min/{1.73_m2} - PINF [facility] Comment on above: Effective June 07, 2022, calculation based on the Chronic Kidney Disease Epidemiology Collaboration (CKD-EPI) equation refit without adjustment for race. Glucose [Mass/Vol] 102 mg/dL High 70 - 99 mg/dL [facility] Interpretation and review of laboratory results Abnormal [facility] Potassium [Moles/Vol] 4.0 mmol/L 3.6 - 5.1 mmol/L [facility] Sodium [Moles/Vol] 136 mmol/L 136 - 145 mmol/L [facility] Urea nitrogen [Mass/Vol] 24 mg/dL High 8 - 20 mg/dL [facility] Urea nitrogen/Creatinine [Mass ratio] 23.8 mg/mg High 12.0 - 20.0 [facility] Fibrin D-dimer DDU (PPP) [Ma ss/Vol]on 08-07-2022 Fibrin D-dimer FEU (PPP) [Mass/Vol] 0.35 NINF [facility] Comment on above: Cutoff 0.49 mcg/ml F EU At this cutoff level, the negative predictive value for this test is 100% for deep vein thrombosis (DVT) in patients with a low or moderate pre-test probability and 99.7% for pulmonary embolism (PE) in patients with a low or moderate pre-test probability. Clinical correlation is essential. Interpretation and review of laboratory results Normal [facility] D-Dimer, Quant (FEU) 0.35 mcg/mL FEU Normal <0.50 [facility] Comment on above: Result Comment: Cuto ff 0.49 mcg/ml FEU At this cutoff level, the negative predictive value for this test is 100% for deep vein thrombosis (DVT) in patients with a low or moderate pre-test probability and 99.7% for pulmonary embolism (PE) in patients with a low or moderate pre-test probability. ?Clinical correlation is essential. Performed By: #### 4 8066-5 #### [facility] [address] [place] [address] Glucose Auto test strip (Bld ) [Mass/Vol]on 08-07-2022 Glucose [Mass/Vol] 103 mg/dL High 70-99 [facility] Comment on above: Performed By: #### 2 340-8 #### [facility] [address] [place] [address] Glucose [Mass/Vol] 103 mg/dL High 70 - 99 mg/dL [facility] [employer] Interpretation and review of laboratory results Abnormal [facility] Hemogram and platelets WO di fferential panel (Bld)on 08-07-2022 Basophils (Bld) [#/Vol] 0.03 10*3/uL Normal 0.00-0.20 [facility] Comment on above: Performed By: #### 2 4317-0 #### [facility] [address] [place] [address] Basophils/100 WBC (Bld) 0.4 % Normal 0.0-2.0 [facility] Comment on above: Performed By: #### 2 4317-0 #### [facility] [address] [place] [address] Eosinophils (Bld) [#/Vol] 0.29 10*3/uL Normal 0.00-0.70 [facility] Comment on above: Performed By: #### 2 4317-0 #### [facility] [address] [place] [address] Eosinophils/100 WBC (Bld) 3.4 % Normal 0.0-7.0 [facility] Comment on above: Performed By: #### 2 4317-0 #### [facility] [address] [place] [address] Erythrocyte distribution width (RBC) [Ratio] 12.2 % Normal 11.0-14.8 [facility] Comment on above: Performed By: #### 2 4317-0 #### [facility] [address] [place] [address] Hematocrit (Bld) [Volume fraction] 38.9 % Low 39.0-49.0 [facility] Comment on above: Performed By: #### 2 4317-0 #### [facility] [address] [place] [address] Hemoglobin (Bld) [Mass/Vol] 13.3 g/dL Low 13.5-17.5 [facility] Comment on above: Performed By: #### 2 4317-0 #### [facility] [address] [place] [address] Immature granulocytes (Bld) [#/Vol] 0.03 10*3/uL Normal [facility] Comment on above: Performed By: #### 2 4317-0 #### [facility] [address] [place] [address] Immature granulocytes/100 WBC (Bld) 0.4 % Normal 0.0-1.2 [facility] Comment on above: Performed By: #### 2 4317-0 #### [facility] [address] [place] [address] Lymphocytes (Bld) [#/Vol] 2.04 10*3/uL Normal 1.00-4.80 [facility] Comment on above: Performed By: #### 2 4317-0 #### [facility] [address] [place] [address] Lymphocytes/100 WBC (Bld) 24.1 % Normal 17.9-49.6 [facility] Comment on above: Performed By: #### 2 4317-0 #### [facility] [address] [place] [address] MCH 31.9 pcg Normal 27.0-34.0 [facility] Comment on above: Performed By: #### 2 4317-0 #### [facility] [address] [place] [address] MCHC (RBC) [Mass/Vol] 34.2 g/dL Normal 30.8-35.3 [facility] Comment on above: Performed By: #### 2 4317-0 #### [facility] [address] [place] [address] MCV (RBC) [Entitic vol] 93.3 fL Normal 80.0-97.0 [facility] Comment on above: Performed By: #### 2 4317-0 #### [facility] [address] [place] [address] Monocytes (Bld) [#/Vol] 0.65 10*3/uL Normal 0.00-0.90 [facility] Comment on above: Performed By: #### 2 4317-0 #### [facility] [address] [place] [address] Monocytes/100 WBC (Bld) 7.7 % Normal 0.0-12.0 [facility] Comment on above: Performed By: #### 2 4317-0 #### [facility] [address] [place] [address] Neutrophils Absolute 5.43 K/mcL Normal 1.80-7.70 [facility] Comment on above: Performed By: #### 2 4317-0 #### [facility] [address] [place] [address] Neutrophils/100 WBC (Bld) 64.0 % Normal 38.1-75.5 [facility] Comment on above: Performed By: #### 2 4317-0 #### [facility] [address] [place] [address] Platelet mean volume (Bld) [Entitic vol] 10.6 fL Normal 6.2-12.1 [facility] Comment on above: Performed By: #### 2 4317-0 #### [facility] [address] [place] [address] Platelets (Bld) [#/Vol] 274 10*3/uL Normal 142-424 [facility] Comment on above: Performed By: #### 2 4317-0 #### [facility] [address] [place] [address] RBC (Bld) [#/Vol] 4.17 10*6/uL Low 4.30-5.70 [facility] Comment on above: Performed By: #### 2 4317-0 #### [facility] [address] [place] [address] WBC (Bld) [#/Vol] 8.5 10*3/uL Normal 4.6-10.2 [facility] Comment on above: Performed By: #### 2 4317-0 #### [facility] [address] [place] [address] Basophils (Bld) [#/Vol] 0.03 10*3/uL [facility] Basophils/100 WBC (Bld) 0.4 % 0.0 - 2.0 % [facility] Eosinophils (Bld) [#/Vol] 0.29 10*3/uL [facility] Eosinophils/100 WBC (Bld) 3.4 % 0.0 - 7.0 % [facility] Erythrocyte distribution width (RBC) [Ratio] 12.2 % 11.0 - 14.8 % [facility] Hematocrit (Bld) [Volume fraction] 38.9 % Low 39.0 - 49.0 % [facility] Hemoglobin (Bld) [Mass/Vol] 13.3 g/dL Low 13.5 - 17.5 g/dL [facility] Immature granulocytes (Bld) [#/Vol] 0.03 10*3/uL K/mcL [facility] Immature granulocytes/100 WBC (Bld) 0.4 % 0.0 - 1.2 % [facility] Interpretation and review of laboratory results Abnormal [facility] Lymphocytes (Bld) [#/Vol] 2.04 10*3/uL [facility] Lymphocytes/100 WBC (Bld) 24.1 % 17.9 - 49.6 % [facility] MCH (RBC) [Entitic mass] 31.9 pg [facility] MCHC (RBC) [Mass/Vol] 34.2 g/dL 30.8 - 35.3 g/dL [facility] MCV (RBC) [Entitic vol] 93.3 fL [facility] Monocytes (Bld) [#/Vol] 0.65 10*3/uL [facility] Monocytes/100 WBC (Bld) 7.7 % 0.0 - 12.0 % [facility] Neutrophils (Bld) [#/Vol] 5.43 10*3/uL [facility] Neutrophils/100 WBC (Bld) 64.0 % 38.1 - 75.5 % [facility] Platelet mean volume (Bld) [Entitic vol] 10.6 fL [facility] Platelets (Bld) [#/Vol] 274 10*3/uL [facility] RBC (Bld) [#/Vol] 4.17 10*6/uL Low [facility] WBC (Bld) [#/Vol] 8.5 10*3/uL [facility] Magnesiumon 08-07-2022 Magnesium [Mass/Vol] 1.8 mg/dL 1.8 - 2.5 mg/dL [facility] Magnesium [Mass/Vol]on 08-07 TSH Qn 0.83 m[IU]/L Normal 0.45-5.33 [facility] Comment on above: Result Comment: TSH [place] testing may give misleading results in patients with Pituitary disease and/or Neuropsychiatric disorder. Patients with Such conditions may require additional thyroid testing. Performed By: #### 1 9123-9 #### [facility] [address] [place] [address] Interpretation and review of laboratory results Normal [facility] Natriuretic peptide B [Mass/ Vol]on 08-07-2022 BNP 382 pcg/mL High 0-100 [facility] Comment on above: Result Comment: <100 : CHF is unlikely 100-400: Possible left ventricular dysfunction-unlikely acute decompensation >400: Suspicious for decompensated heart failure Performed By: #### 3 0934-4 #### [facility] ([facility]) [facility] [address] [place] [address] Interpretation and review of laboratory results Abnormal [facility] Natriuretic peptide B (Bld) [Mass/Vol] 382 pg/mL High [facility] Comment on above: <100: CHF is unlikel y 100-400: Possible left ventricular dysfunction-unlikely acute decompensation >400: Suspicious for decompensated heart failure [facility] No Panel Informationon 08-07 [facility] SARS-CoV-2 (COVID-19) RNA NA A+probe Ql (Resp)on 08-07-2022 Interpretation and review of laboratory results Normal [facility] SARS-CoV-2 (COVID-19) RdRp gene MERCEDES+probe Ql (Resp) Not detected Not Detected [facility] SARS-CoV-2 RNA Resp Ql MERCEDES+p robeon 08-07-2022 SARS-CoV-2 (COVID-19) RNA MERECDES+probe Ql (Resp) Not detected Normal Not Detected [facility] Comment on above: Performed By: #### 9 4500-6 #### [facility] [address] [place] [address] TSH DL <= 0.05 mIU/L [facility] Interpretation and review of laboratory results Normal [facility] TSH Qn 0.83 m[IU]/L [facility] Comment on above: TSH [place] testing may give misleading results in patients with Pituitary disease and/or Neuropsychiatric disorder. Patients with Such conditions may require additional thyroid testing. [facility] Tropinin I.cardiac panel Hig h sensitivity methodon 08-07-2022 High Sensitivity Troponin I 5 ng/L Normal <20 [facility] Comment on above: Order Comment: REP EAT @1030 Performed By: #### 8 9577-1 #### [facility] [address] [place] [address] Interpretation and review of laboratory results Normal [facility] Troponin I.cardiac High sensitivity method [Mass/Vol] 5 ng/L NINF - 20 ng/L [facility] Interpretation and review of laboratory results Normal [facility] Troponin I.cardiac High sensitivity method [Mass/Vol] 4 ng/L NINF - 20 ng/L [facility] XR CHEST 1 VIEWon 08-07-2022 XR CHEST 1 VIEW EXAM: XR CHEST 1 VIE W HISTORY: Tachycardia. COMPARISON: None. TECHNIQUE: Frontal view of the chest. FINDINGS: The heart size is enlarged. There are hazy and interstitial opacities suggesting pulmonary edema. Superimposed infectious process is not excluded. No large pleural effusion. No detectable pneumothorax. Thoracic spine degenerative changes. IMPRESSION: Cardiomegaly and findings suggesting pulmonary edema. Superimposed infectious etiology is not excluded. -------- FINAL REPORT -------- Dictated By: Mackenzie Moore Dictated Date: 08/07/2022 08:30 Assigned Physician: Mackenzie Moore Reviewed and Electronically Signed By: Mackenzie Moore Signed Date: 08/07/2022 08:31 Workstation ID: [id number] Transcribed By: Self Edit Transcribed Date: 08/07/2022 08:30 Normal [facility] XR Chest 1 Viewon 08-07-2022 Cardiomegaly and findings suggesting pulmonary edema. Superimposed infectious etiology is not excluded. -------- FINAL REPORT -------- Dictated By: Mackenzie Moore Dictated Date: 08/07/2022 08:30 Assigned Physician: Mackenzie Moore Reviewed and Electronically Signed By: Mackenzie Moore Signed Date: 08/07/2022 08:31 Workstation ID: [id number] Transcribed By: Self Edit Transcribed Date: 08/07/2022 08:30 POWERSCRIBE EXAM: XR CHEST 1 VIE W HISTORY: Tachycardia. COMPARISON: None. TECHNIQUE: Frontal view of the chest. FINDINGS: The heart size is enlarged. There are hazy and interstitial opacities suggesting pulmonary edema. Superimposed infectious process is not excluded. No large pleural effusion. No detectable pneumothorax. Thoracic spine degenerative changes. POWERSCRIBE Mackenzie Moore MD - 08/07/2022 EXAM: XR CHEST 1 VIEW HISTORY: Tachycardia. COMPARISON: None. TECHNIQUE: Frontal view of the chest. FINDINGS: The heart size is enlarged. There are hazy and interstitial opacities suggesting pulmonary edema. Superimposed infectious process is not excluded. No large pleural effusion. No detectable pneumothorax. Thoracic spine degenerative changes. IMPRESSION: Cardiomegaly and findings suggesting pulmonary edema. Superimposed infectious etiology is not excluded. -------- FINAL REPORT -------- Dictated By: Mackenzie Moore Dictated Date: 08/07/2022 08:30 Assigned Physician: Mackenzie Moore Reviewed and Electronically Signed By: Mackenzie Moore Signed Date: 08/07/2022 08:31 Workstation ID: [id number] Transcribed By: Self Edit Transcribed Date: 08/07/2022 08:30 [facility] Study observation (narrative) [facility] XR Chest 1 ViewOrdered By: Flores Moore on 08-07-2022 [facility] Work Phone: ECHOCARDIO M/2D COMPLETEon 1 10-01-2021 ECHOCARDIO M/2D COMPLETE Patient: STERLING BOND Exam Date: 07/31/2022 : 1965 Gender:M Ordering : DR. LUCIO BARBOUR M.D. Admission #: [id number] Family : DR AMIRAH ZAPATA M.D. Order #: [id number] CLICK HERE TO VIEW EXAM ECHOCARDIOGRAM REPORT PROCEDURE: CARDIO PULMONARY ECHOCARDIO M/2D COMP INDICATIONS: Cardiac murmur, hypertension COMPARISON: None. DESCRIPTION: COMPLETE ECHOCARDIOGRAM Real-time transthoracic echocardiography with 2D, M-mode, spectral and color flow Doppler performed. QUALITY: Technical quality was good. 67 250# BP 136/74 LEFT VENTRICLE: Normal chamber size. Moderate concentric left ventricular hypertrophy. Diastolic function is indeterminate. LV EF: Normal left ventricular ejection fraction, (>55%). DIASTOLIC: Diastolic function is indeterminate. ATRIAL SEPTUM: Visually appears intact. LEFT ATRIUM: Moderate dilatation. RIGHT ATRIUM: Mild dilatation. RIGHT VENTRICLE: Normal chamber size. Normal right ventricular systolic function. TRICUSPID VALVE: Normal mobility and thickness. Doppler studies reveal mildly (35-45) elevated right sided pressures. RVSP 36 mmHg MITRAL VALVE: Mildly thickened with normal mobility. No evidence of mitral valve stenosis. Moderate mitral regurgitation. AORTIC VALVE: Normal trileaflet appearance. No visible sclerosis. Normal leaflet mobility. No evidence of aortic valve stenosis. No aortic regurgitation. AORTIC ROOT: Normal diameter and appearance. PULMONIC VALVE: Normal thickness and mobility. No stenosis. Trivial regurgitation. PERICARDIUM: No evidence of pericardial effusion. IVC: Collapses with inspirations. IVC is normal in size. CONCLUSION: Global left ventricular systolic function is normal; visually estimated action fraction is 55 to 60%. Moderate left ventricular hypertrophy. Diastolic function is indeterminate. Biatrial enlargement. The right ventricle is normal in size and systolic function. Mildly elevated right-sided pressures. Moderate mitral regurgitation. Adult Echocardiography Procedure Report Left Ventricle LVEDD (3.7 - 5.6 cm): 4.82 cm LVESD (2.2 - 4.0 cm): 3.29 cm LVIVS thickness (0.6 - 1.2 cm): 1.40 cm LVPW thickness (0.5 - 1.0 cm): 1.37 cm e': 0.11 m/s E - e': 8.32 LVOT Max Gradient: 4.37 mm[Hg] Peak Velocity (LVOT): 1.05 m/s LVOT Diameter 2.73 cm, 2.59 cm Left Ventricular Ejection Fraction: 59.63 %, 59.63 % Left Atrium LA Volume Index (2D A2C): 121.47 ml, 121.47 ml Left Atrium Systolic Dimension: 4.81 cm Mitral Valve MV E to A Ratio: 1.39, 1.50 Mitral Valve A-Wave Peak Velocity: 0.67 m/s, 0.64 m/s Mitral Valve E-Wave Peak Velocity: 0.93 m/s, 0.96 m/s Right Ventricle Aorta AO Root Diam: 3.96 cm Aortic Valve AoV Area (Peak Rahul): 6.97 cm2, 6.97 cm2 Peak Velocity(Antegrade Flow): 0.88 m/s Peak Gradient(Antegrade Flow): 3.09 mm[Hg] Tricuspid Valve Peak Velocity (Regurgitant Flow): 2.87 m/s Peak Velocity: 0.45 m/s Pulmonic Valve Peak Velocity: 0.83 m/s, 0.74 m/s Peak Gradient: 2.73 mm[Hg], 2.22 mm[Hg] Right Atrium Right Atrium Systolic Pressure: 33.76 ml, 33.76 ml Dictated by: Prashanth De León M.D. on 08/05/2022 at 09:23 Approved by: Prashanth De León M.D. on 08/05/2022 at 09:26 Normal [facility] Basic metabolic 2000 panelon 11-29-2022 Anion gap [Moles/Vol] 10 mmol/L Normal 6-18 [facility] Comment on above: Performed By: #### 2 4321-2 #### [facility] [address] [place] [address] Calcium [Mass/Vol] 8.8 mg/dL Low 8.9-10.3 [facility] Comment on above: Performed By: #### 2 4321-2 #### [facility] [address] [place] [address] Chloride [Moles/Vol] 105 mmol/L Normal 98-107 [facility] Comment on above: Performed By: #### 2 4321-2 #### [facility] [address] [facility] [place] [address] CO2 [Moles/Vol] 23 mmol/L Normal 22-32 [facility] Comment on above: Performed By: #### 2 4321-2 #### [facility] [address] [place] [address] Creatinine [Mass/Vol] 0.93 mg/dL Normal 0.60-1.30 [facility] Comment on above: Performed By: #### 2 4321-2 #### [facility] [address] [facility] [place] [address] GFR/1.73 sq M.predicted among non-blacks MDRD (S/P/Bld) [Vol rate/Area] 97 mL/min/{1.73_m2} Normal >=60 [facility] Comment on above: Result Comment: Effe ctive June 07, 2022, calculation based on the?Chronic Kidney Disease Epidemiology Collaboration (CKD-EPI) equation refit?without adjustment for race. Performed By: #### 2 4321-2 #### [facility] [address] [facility] [place] [address] Glucose [Mass/Vol] 78 mg/dL Normal 70-99 [facility] Comment on above: Performed By: #### 2 4321-2 #### [facility] [address] [place] [address] Potassium [Moles/Vol] 3.9 mmol/L Normal 3.6-5.1 [facility] Comment on above: Performed By: #### 2 4321-2 #### [facility] [address] [place] [address] Sodium [Moles/Vol] 138 mmol/L Normal 136-145 [facility] Comment on above: Performed By: #### 2 4321-2 #### [facility] [address] [place] [address] Urea nitrogen [Mass/Vol] 23 mg/dL High 8-20 [facility] Comment on above: Performed By: #### 2 4321-2 #### [facility] [address] [place] [address] Urea nitrogen/Creatinine [Mass ratio] 24.7 mg/mg High 12.0-20.0 [facility] Comment on above: Performed By: #### 2 4321-2 #### [facility] [address] [place] [id number] Hemogram and platelets WO di fferential panel (Bld)on 07-28-2022 Erythrocyte distribution width (RBC) [Ratio] 12.5 % Normal 11.0-14.8 [facility] Comment on above: Performed By: #### 2 4317-0 #### [facility] [address] [place] [address] Hematocrit (Bld) [Volume fraction] 41.1 % Normal 39.0-49.0 [facility] Comment on above: Performed By: #### 2 4317-0 #### [facility] [address] [place] [address] Hemoglobin (Bld) [Mass/Vol] 13.9 g/dL Normal 13.5-17.5 [facility] Comment on above: Performed By: #### 2 4317-0 #### [facility] [address] [place] [address] MCH 32.5 pcg Normal 27.0-34.0 [facility] Comment on above: Performed By: #### 2 4317-0 #### [facility] [address] [place] [address] MCHC (RBC) [Mass/Vol] 33.8 g/dL Normal 30.8-35.3 [facility] Comment on above: Performed By: #### 2 4317-0 #### [facility] [address] [place] [address] MCV (RBC) [Entitic vol] 96.0 fL Normal 80.0-97.0 [facility] Comment on above: Performed By: #### 2 4317-0 #### [facility] [address] [place] [address] Platelet mean volume (Bld) [Entitic vol] 11.6 fL Normal 6.2-12.1 [facility] Comment on above: Performed By: #### 2 4317-0 #### [facility] [address] [place] [address] Platelets (Bld) [#/Vol] 206 10*3/uL Normal 142-424 [facility] Comment on above: Performed By: #### 2 4317-0 #### [facility] [address] [place] [address] RBC (Bld) [#/Vol] 4.28 10*6/uL Low 4.30-5.70 [facility] [facility] Comment on above: Performed By: #### 2 4317-0 #### [facility] ([facility]) [facility] [address] [place] [address] WBC (Bld) [#/Vol] 7.5 10*3/uL Normal 4.6-10.2 [facility] Comment on above: Performed By: #### 2 4317-0 #### [facility] ([facility]) [facility] [address] [place] [address] Cardiovascular Lab Reporton 07-01-2019 Cardiovascular Lab Report [facility] Patient Name: [facility] MR #: [id number] Physician: Prashanth De León Department of M.D. Medicine Service Date: 06/30/2019 Division of Birthdate: 1965 Cardiology Room #: [facility] Cardiovascular Services [place] [address] Cardiovascular Laboratory Report FINAL IMPRESSIONS: 1. Nonobstructive coronary arteries angiographically. 2. Normal global left ventricular systolic function by noninvasive imaging. RECOMMENDATIONS: 1. Aggressive cardiovascular risk factor modification. 2. Consider alternate etiologies for the patient's chest pain since namely musculoskeletal, pulmonary, and/or gastrointestinal. 3. Follow up with [facility] Cardiology on an as-needed basis. 4. Follow up with his family physician as scheduled. PROCEDURES: Bilateral selective coronary angiography via right femoral approach, placement of a 6-Mohawk MynxGrip closure device. METHODS: After risks, benefits, and alternatives were explained, written informed consent was obtained. The patient was prepped and draped in usual sterile fashion over the right groin. Using 1% lidocaine solution, local infiltration anesthesia was achieved. Using a modified Seldinger technique and a micropuncture kit, access of the right femoral artery was obtained. A 6-Mohawk 11 cm sheath was inserted without difficulty. Angiography via the inner cannula of the micropuncture kit was utilized prior to upsizing to the 6-Mohawk sheath. Bilateral selective coronary angiography was performed using JL4 and JR4 catheters. After reviewing the images, it was elected to conclude the procedure. A 6-Mohawk MynxGrip closure device was deployed per protocol achieving optimal hemostasis. Overall, the patient tolerated the procedure well. There were no overt complications. He was to be transferred to the holding area in stable condition. FINDINGS: Hemodynamics: AO 110/60. LEFT VENTRICULOGRAPHY: This was not performed. Ejection fraction is normal by noninvasive imaging. CORONARY ARTERIES: Left main coronary artery. This arises from the left coronary cusp. It bifurcates into the left anterior descending and left circumflex coronary arteries and is free of significant stenosis. Left anterior descending coronary artery: This shows no significant stenosis and is angiographically nonobstructive. Left circumflex coronary artery: This is nonobstructive. Right coronary artery: This is a dominant vessel giving rise to the posterior descending and posterolateral branches. It is angiographically nonobstructive. Fluoroscopy: This reveals calcification probably in the mitral annular plane. Echocardiography shows nonspecific thickening of the mitral valve with no obvious prolapse or regurgitation. Limited femoral angiography that shows mild plaque and anatomy suitable for closure device. INDICATIONS: Abnormal stress test, chest pain.. Electronically Signed by: Prashanth De León M.D. 07/04/2019 08:26 A Prashanth De León M.D. Date Dict: 06/30/2019/11:04 Dex De León M.D. Date Trans: 07/01/2019 04:48 Nathalia [id number] cc: Amirah Zapata M.D. [facility] [address] [facility] [id number] Normal [facility] Vital Signs Date Time Vital Sign Value Performing Clinician Facility 09-12-2024 14:050 Body height 170.2 cm [facility] 09-12-2024 14:21-050 Body mass index (BMI) [Ratio] 36.71 kg/m2 Lizet Marie MD Work Phone: [facility] 09-12-2024 14:210500 Body weight 106.32 kg Lizet Marie MD Work Phone: [facility] 09-12-2024 14:21-0500 Diastolic blood pressure 70 mm[Hg] Lizet Marie MD Work Phone: [facility] 09-12-2024 14:21-0500 Heart rate 100 /min Lizet Marie MD Work Phone: [facility] 09-12-2024 14:21-0500 SaO2% (BldA) [Mass fraction] 97 % Lizet Marie MD Work Phone: [facility] 09-12-2024 14:21-0500 Systolic blood pressure 118 mm[Hg] Lizet Marie MD Work Phone: [facility] 06-27-2024 16:40-0400 Body height 170.2 cm Susan Hemmer PA Work Phone: [facility] 06-27-2024 16:40-0400 Body mass index (BMI) [Ratio] 35.37 kg/m2 Susan Hemmer PA Work Phone: [facility] 06-27-2024 16:40-0400 Body weight 102.42 kg Susan Hemmer PA Work Phone: [facility] 06-27-2024 16:40-0400 Diastolic blood pressure 76 mm[Hg] Susan Hemmer PA Work Phone: [facility] 06-27-2024 16:40-0400 Heart rate 72 /min Susan Hemmer PA Work Phone: [facility] 06-27-2024 16:40-0400 Respiratory rate 16 /min Susan Hemmer PA Work Phone: [facility] 06-27-2024 16:40-0400 SaO2% (BldA) [Mass fraction] 95 % Susan Hemmer PA Work Phone: [facility] 06-27-2024 16:40-0400 Systolic blood pressure 120 mm[Hg] Susan Hemmer PA Work Phone: [facility] 11-25-2023 17:11-0400 Body height 170.18 cm [facility] 11-25-2023 17:11-0400 Body mass index (BMI) [Ratio] 36.1 kg/m2 [facility] 11-25-2023 17:11-0400 Body temperature 97.5 [degF] [facility] 11-25-2023 17:11-0400 Body weight 104.77 kg [facility] 11-25-2023 17:11-0400 Heart rate 91 /min [facility] 11-25-2023 17:11-0400 Respiratory rate 18 /min [facility] 11-25-2023 17:11-0400 SaO2% (BldA) [Mass fraction] 97 % [facility] 11-04-2022 12:40-0500 Diastolic blood pressure 86 mm[Hg] Delmer Schneider MD Work Phone: [facility] 11-04-2022 12:40-0500 Heart rate 70 /min Delmer Schneider MD Work Phone: [facility] 11-04-2022 12:40-0500 Respiratory rate 6 /min Delmer Schneider MD Work Phone: [facility] 11-04-2022 12:40-0500 SaO2% (BldA) [Mass fraction] 93 % Delmer Schneider MD Work Phone: [facility] 11-04-2022 12:40-0500 Systolic blood pressure 147 mm[Hg] Delmer Schneider MD Work Phone: [facility] 11-04-2022 11:15-0500 Body temperature 97.7 [degF] Delmer Schneider MD Work Phone: [facility] 11-04-2022 06:18-0500 Body height 170.2 cm Delmer Schneider MD Work Phone: [facility] 11-04-2022 06:18-0500 Body mass index (BMI) [Ratio] 39.25 kg/m2 Delmer Schneider MD Work Phone: [facility] 11-04-2022 06:18-0500 Body weight 113.67 kg Delmer Schneider MD [facility] 08-09-2022 16:48-0500 Body temperature 99.7 [degF] Ralph Grey DO Work Phone: [facility] 08-09-2022 16:48-0500 Diastolic blood pressure 72 mm[Hg] Ralph Grey DO Work Phone: [facility] 08-09-2022 16:48-0500 Heart rate 85 /min Ralph Grey DO Work Phone: [facility] 08-09-2022 16:48-0500 Respiratory rate 16 /min Ralph Grey DO Work Phone: [facility] 08-09-2022 16:48-0500 SaO2% (BldA) [Mass fraction] 93 % Ralph Grey DO Work Phone: [facility] 08-09-2022 16:48-0500 Systolic blood pressure 121 mm[Hg] Ralph Grey DO Work Phone: [facility] 08-07-2022 07:19-0500 Body height 172.7 cm Ralph Grey DO Work Phone: [facility] 08-07-2022 07:19-0500 Body mass index (BMI) [Ratio] 38.01 kg/m2 Ralph Grey DO Work Phone: [facility] 08-07-2022 07:19-0500 Body weight 113.4 kg Ralph Grey DO Work Phone: [facility] Encounters Encounter Date Encounter Type Care Provider Facility Start: 09-18-2024 End: 09-18-2024 Refill Rosalva Vieyra RN [facility] Comment on above: Med Refill Start: 09-12-2024 End: 09-12-2024 Office outpatient visit 25 minutes Lizet Marei MD Work Phone: [facility] Comment on above: Premature atrial com plex (Primary Dx); Nonrheumatic mitral valve regurgitation; Paroxysmal atrial fibrillation (CMS-HCC); Anticoagulated on Coumadin; History of mitral valve replacement; 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); Primary hypertension Start: 09-12-2024 End: 09-12-2024 [facility] Start: 09-11-2024 End: 09-11-2024 Telephone encounter Amirah Zapata MD Work Phone: [facility] Start: 08-29-2024 End: 08-29-2024 Follow-up encounter [facility] Comment on above: Paroxysmal atrial fi brillation (CMS-HCC) (Primary Dx); Anticoagulated on Coumadin; History of mitral valve replacement Start: 08-29-2024 End: 08-29-2024 [facility] Start: 08-11-2024 End: 08-11-2024 Follow-up encounter [facility] 1 [facility] Comment on above: Paroxysmal atrial fi brillation (CMS-HCC) (Primary Dx); Anticoagulated on Coumadin; History of mitral valve replacement Start: 08-11-2024 End: 08-11-2024 [facility] Start: 06-30-2024 End: 06-30-2024 Follow-up encounter [facility] Comment on above: Paroxysmal atrial fi brillation (CMS-HCC) (Primary Dx); Anticoagulated on Coumadin; History of mitral valve replacement Start: 06-30-2024 End: 06-30-2024 [facility] Start: 06-27-2024 End: 06-27-2024 Office outpatient visit 25 minutes Susan BUTLER Work Phone: [facility] Comment on above: Cervical spondylosis (Primary Dx); Pure hypercholesterolemia (CMS/HCC); RLS (restless legs syndrome); Chronic pain of right knee; Primary osteoarthritis of right knee; Class 2 severe obesity due to excess calories with serious comorbidity and body mass index (BMI) of 35.0 to 35.9 in adult ([facility]) Start: 06-27-2024 End: 06-27-2024 ambulatory SUSAN JUAREZ Not Available Start: 06-27-2024 End: 06-27-2024 Bamboo flowsheet Susan Juarez PA Work Phone: [facility] Start: 06-27-2024 End: 06-27-2024 Bamboo flowsheet Susan Juarez PA Work Phone: [facility] Start: 06-26-2024 End: 06-26-2024 Telephone encounter [facility] Work Phone: [facility] Start: 05-19-2024 End: 05-19-2024 Follow-up encounter [facility] Comment on above: Paroxysmal atrial fi brillation ([facility]) (Primary Dx); Anticoagulated on Coumadin; History of mitral valve replacement Start: 05-19-2024 End: 05-22-2024 [facility] Start: 05-02-2024 End: 05-02-2024 Refill Latia Solis [facility] Comment on above: Essential hypertensi on ([facility]) Start: 04-28-2024 End: 04-28-2024 Follow-up encounter [address] Med[facility] Management Comment on above: Paroxysmal atrial fi brillation ([facility]) (Primary Dx); Anticoagulated on Coumadin; History of mitral valve replacement Start: 04-28-2024 End: 04-28-2024 [facility] Start: 04-24-2024 End: 04-25-2024 Telephone encounter Amirah Zapata MD Work Phone: [facility] Comment on above: Med Refill Start: 03-17-2024 End: 03-17-2024 [facility] Start: 03-17-2024 End: 03-17-2024 Follow-up encounter [facility] 2 [facility] Comment on above: Paroxysmal atrial fi brillation (CMS-HCC) (Primary Dx); Anticoagulated on Coumadin; History of mitral valve replacement Start: 03-17-2024 End: 03-30-2024 [facility] Start: 03-09-2024 End: 03-09-2024 Telephone encounter Savanah Helms MA [facility] Start: 02-04-2024 End: 02-04-2024 Follow-up encounter [facility] 2 [facility] Comment on above: Paroxysmal atrial fi brillation (CMS-HCC) (Primary Dx); Anticoagulated on Coumadin; History of mitral valve replacement Start: 02-04-2024 End: 02-04-2024 [facility] Start: 12-24-2023 End: 12-24-2023 [facility] Comment on above: Paroxysmal atrial fi brillation (CMS-HCC) (Primary Dx); Anticoagulated on Coumadin; History of mitral valve replacement Start: 12-24-2023 End: 12-24-2023 [facility] Start: 12-02-2023 End: 12-02-2023 ambulatory SAMANTHA KWONG Not Available Start: 11-25-2023 End: 11-25-2023 ambulatory [facility] Work Phone: Start: 11-25-2023 End: 11-25-2023 Patient encounter procedure [facility] [place] Work Phone: Start: 11-10-2023 End: 11-10-2023 Follow-up encounter [facility] 1 [facility] Comment on above: Paroxysmal atrial fi brillation (CMS-HCC) (Primary Dx); Anticoagulated on Coumadin; History of mitral valve replacement Start: 11-10-2023 End: 11-10-2023 [facility] Start: 10-13-2023 End: 10-13-2023 Follow-up encounter [facility] 1 [facility] Comment on above: Paroxysmal atrial fi brillation (CMS-HCC) (Primary Dx); Anticoagulated on Coumadin; History of mitral valve replacement Start: 10-13-2023 End: 10-13-2023 [facility] Start: 10-01-2023 Refill Amirah Koch Work Phone: [facility] Start: 09-21-2023 End: 09-21-2023 Follow-up encounter [facility] 1 [facility] Comment on above: Paroxysmal atrial fi brillation (CMS-HCC) (Primary Dx); Anticoagulated on Coumadin; History of mitral valve replacement Start: 09-21-2023 End: 09-30-2023 [facility] Start: 08-25-2023 End: 08-25-2023 Follow-up encounter [facility] 1 [facility] Comment on above: Paroxysmal atrial fi brillation ([facility]) (Primary Dx); Anticoagulated on Coumadin; History of mitral valve replacement Start: 08-24-2023 Refill Kary Claros RN [facility] Comment on above: Med Refill Start: 08-02-2023 End: 08-03-2023 ambulatory Vanessa Medrano MD Facility: [facility] Start: 05-24-2023 End: 05-25-2023 ambulatory aVnessa Medrano MD Facility: [facility] Start: 03-18-2023 ambulatory [facility] Start: 01-07-[address] AMIRAH ZAPATA Facility: Start: 12-31-2022 ambulatory [facility] Start: 12-31-2022 End: 01-02-2023 Subsequent hospital visit by physician [facility] Xray Room [facility] Comment on above: Status post cervical spinal fusion Start: 12-31-2022 End: 01-01-[address] AMIRAH ZAPATA Facility:[facility] Start: 11-19-2022 ambulatory [facility] Start: 11-19-2022 End: 11-21-2022 Subsequent hospital visit by physician [facility] Xray Room [facility] Comment on above: Status post cervical spinal fusion Start: 11-04-2022 End: 11-04-[address] AMIRAH ZAPATA Facility:[facility] Start: 11-04-2022 End: 11-04-2022 ambulatory [facility] Start: 11-04-2022 End: 11-06-2022 Subsequent hospital visit by physician Delmer Schneider MD Work Phone: [facility] Comment on above: Degenerative cervica l disc Start: 11-04-2022 End: 11-04-2022 Subsequent hospital visit by physician Delmer Schneider MD Work Phone: [facility] Comment on above: Cervical radiculitis ; Cervical spondylosis with myelopathy; Spondylolisthesis of cervical region; Spondylolisthesis, acquired; Spinal instabilities of cervical region; 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 Start: 10-02-2022 ambulatory [facility] Start: 10-02-2022 Patient encounter procedure [facility] Start: 10-02-2022 End: 10-04-2022 Patient encounter procedure [facility] Room [facility] Start: 10-02-2022 End: 10-04-2022 Subsequent hospital visit by physician [facility] Xray Room [facility] Comment on above: Encounter for examin ation for normal comparison or control in clinical research program Start: 08-07-2022 End: 08-09-2022 Evaluation and management of inpatient AMIRAH ZAPATA [facility] Start: 08-07-2022 End: 08-09-2022 Emergency department patient visit Ralph Edmonds DO Work Phone: [facility] Comment on above: Atrial fibrillation with rapid ventricular response (CMS/HCC) (Primary Dx) Start: 08-07-2022 End: 08-09-2022 Evaluation and management of inpatient Ralph Edmonds DO Work Phone: [facility] Start: 07-31-2022 End: 08-01-[address] DOCTOR RIOS Facility: Start: 06-30-2019 End: 07-01-2019 Patient encounter procedure [facility] Facility:[facility] C Procedures Date Procedure Procedure Detail Performing Clinician Start: 09-12-2024 Follow-up visit Follow-up LIZET AVILES Start: 09-12-2024 Ecg routine ecg w/le ast 12 lds w/i&r Lizet Marie MD Work Phone: Start: 08-29-2024 [employer] Work Phone: Start: 08-11-2024 [employer] Work Phone: Start: 06-30-2024 [employer] Work Phone: Start: 05-19-2024 [employer] Work Phone: Start: 04-28-2024 [employer] Work Phone: Start: 03-17-2024 [employer] Work Phone: Start: 02-04-2024 [employer] Work Phone: Start: 12-24-2023 [employer] Work Phone: Start: 11-10-2023 [employer] Work Phone: Start: 10-13-2023 [employer] Work Phone: Start: 09-21-2023 [employer] Work Phone: Start: 08-25-2023 [employer] Work Phone: Start: 12-31-2022 Radex spine cervical 2 or 3 views Delmer Schneider MD Work Phone: Start: 11-19-2022 Radex spine cervical 2 or 3 views Delmer Schneider MD Work Phone: Start: 11-04-2022 End: 11-04-2022 Gluc bld gluc mntr dev cleared fda spec home use Akila Owusu 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 - 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 Work Phone: Start: 11-04-2022 Fluoroscopy during operation Delmer Schneider MD Work Phone: Start: 10-02-2022 MRI COMPARISON OF OU TSIDE FILMS Delmer Schneider MD Work Phone: Start: 10-02-2022 End: 10-02-2022 XR COMPARISON OF OUTSIDE FILMS Delmer Schneider MD Work Phone: Start: 08-09-2022 Blood count complete automated Veronicagaurav Barcenas DESKTOP PUBLISHING OPERATOR Work Phone: Start: 08-08-2022 Prothrombin time Veronica Narinder DESKTOP PUBLISHING OPERATOR Work Phone: Start: 08-08-2022 POCT GLUCOSE BLOOD Rosalva Land MD Work Phone: Start: 08-08-2022 POCT GLUCOSE BLOOD Rosalva Land MD Work Phone: Start: 08-08-2022 CBC W Auto Different ial panel - Blood Hanh Land MD Work Phone: Start: 08-08-2022 Comprehensive metabo lic panel Hanh Land MD Work Phone: Start: 08-07-2022 CPAP NIV Azael johnson MD Work Phone: Start: 08-07-2022 Sars-cov-2 detection by dna/rna Ralph Edmonds DO Work Phone: Start: 08-07-2022 POCT GLUCOSE BLOOD Rosalva Land MD Work Phone: Start: 08-07-2022 Assay of troponin quantitative Ralph Grey DO Work Phone: Start: 08-07-2022 Radiologic exam ches t single view Ralph Grey DO Work Phone: Start: 08-07-2022 Basic metabolic pane l calcium total Ralph Grey DO Work Phone: Start: 08-07-2022 CBC W Auto Different ial panel - Blood Ralph Grey DO Work Phone: Start: 08-07-2022 Ecg routine ecg w/le ast 12 lds trcg only w/o i&r Ralph Grey DO Work Phone: Start: 12-13-2017 Colonoscopy [facility] Plan of Treatment Date Care Activity Detail Author Start: 11-24-2033 DTaP,Tdap and Td Vaccines (2 - Td or Tdap) DTaP,Tdap and Td Vaccines (2 - Td or Tdap) [facility] Start: 12-14-2027 Screening for malignant neoplasm of colon [facility] Start: 02-12-2026 Lipid panel [facility] Start: 09-12-2025 Adult BMI Screening Adult BMI Screening [facility] Start: 09-12-2025 Tobacco Screening Tobacco Screening [facility] Start: 02-26-2025 Influenza vaccination Influenza Vaccine (#1) [facility] Comment on above: Postponed from 04/30/2024 (Patient Refus ed) Start: 10-10-2024 End: 10-10-2024 Patient encounter procedure 10/10/2024 4:00 PM EST Office Visit [facility] [address] [facility] [address] [place] [id number] Amirah Zapata MD [address] [facility] [address] [place] [address] [facility] Start: 10-09-2024 End: 10-09-2024 Patient encounter procedure 10/09/2024 10:00 AM EST Office Visit [facility] [address] [facility] [address] [place] [phone] Keith Delacruz MD [address] [place] [address] [facility] Start: 09-29-2024 End: 09-29-2024 Follow-up encounter 09/29/2024 3:45 PM EST Follow Up Anticoagulation [facility] [address] [place] [address] [facility] Start: 09-18-2024 End: 09-18-2024 Patient encounter procedure [facility] Start: 09-12-2024 End: 09-12-2024 Patient encounter procedure 09/12/2024 2:30 PM EST Office Visit [facility] [address] [place] [id number] Lizet Marie MD [address] [place] [address] [facility] Start: 09-12-2024 End: 09-12-2025 Echo complete W/O contrast Echo complete W/O contrast Echocardiography Routine Nonrheumatic mitral valve regurgitation Expected: 09/12/2024, Expires: 09/12/2025 [facility] Comment on above: Expected: 09/12/2024, Expires: Start: 09-12-2024 End: 09-12-2025 Holter monitor study Holter monitor 24-48 hour Cardiac Services Routine Premature atrial complex Expected: 09/12/2024, Expires: 09/12/2025 [facility] Work Phone: Comment on above: Expected: 09/12/2024, Expires: Start: 08-29-2024 End: 08-29-2024 Follow-up encounter 08/29/2024 8:45 AM EST Follow Up Anticoagulation [facility] [address] [place] [address] [facility] Start: 08-11-2024 End: 08-11-2024 Follow-up encounter 08/11/2024 3:45 PM EST Follow Up Anticoagulation [facility] [address] [place] [address] [facility] Start: 06-30-2024 End: 06-30-2024 Follow-up encounter 06/30/2024 3:45 PM EDT Follow Up Anticoagulation [facility] [address] [place] [address] [facility] Start: 06-30-2024 End: 06-30-2024 Follow-up encounter 06/30/2024 8:30 AM EDT Follow Up Anticoagulation [facility] [address] [place] [address] [facility] Start: 06-27-2024 End: 06-27-2024 Patient encounter procedure 06/27/2024 4:30 PM EDT Office Visit [facility] [address] [facility] [address] [place] [address] Susan Juarez PA [address] [facility] [address] [place] [address] Arrived [facility] Comment on above: Arrived Start: 05-27-2024 Adult BMI Screening Adult BMI Screening [facility] Start: 05-27-2024 Tobacco Screening Tobacco Screening [facility] Start: 05-19-2024 End: 05-19-2024 Follow-up encounter 05/19/2024 3:45 PM EDT Follow Up Anticoagulation [facility] [address] [place] [address] [facility] Start: 04-30-2024 Influenza vaccination [facility] Start: 04-28-2024 End: 04-28-2024 Follow-up encounter 04/28/2024 3:45 PM EDT Follow Up Anticoagulation [facility] [address] [place] [address] [facility] Start: 03-17-2024 End: 03-17-2024 Follow-up encounter [facility] Start: 02-04-2024 End: 02-04-2024 Follow-up encounter 02/04/2024 3:45 PM EDT Follow Up Anticoagulation [facility] [address] [place] [address] [facility] Start: 12-24-2023 End: 12-24-2023 Follow-up encounter 12/24/2023 3:45 PM EDT Follow Up Anticoagulation [facility] [address] [place] [address] [facility] Start: 11-10-2023 End: 11-10-2023 Follow-up encounter 11/10/2023 3:45 PM EDT Follow Up Anticoagulation [facility] [address] [place] [address] [facility] Start: 10-13-2023 End: 10-13-2023 Follow-up encounter 10/13/2023 3:45 PM EST Follow Up Anticoagulation [facility] [address] [place] [address] [facility] Start: 09-22-2023 End: 09-22-2023 Follow-up encounter 09/22/2023 9:45 AM EST Follow Up Anticoagulation [facility] [address] [place] [address] [facility] Start: 08-25-2023 End: 08-25-2023 Follow-up encounter 08/25/2023 10:00 AM EST Follow Up Anticoagulation [facility] [address] [place] [address] [facility] Start: 08-08-2023 Hypertension/CHF/CAD Annual BMP Blood Test Hypertension/CHF/CAD Annual BMP Blood Test [facility] Start: 04-30-2023 Influenza vaccination [facility] Start: 03-30-2023 Influenza vaccination Flu vaccine (Season Ended) [facility] Start: 03-11-2023 End: 03-11-2023 Patient encounter procedure 03/11/2023 Office Visit Orthopedic Surgery Delmer Schneider MD [address] [place] [address] [facility] Start: 12-31-2022 End: 12-31-2022 Patient encounter procedure 12/31/2022 Office Visit Orthopedic Surgery Delmer Schneider MD [address] [place] [address] [facility] Start: 11-13-2022 End: 11-13-2022 Patient encounter procedure 11/13/2022 Office Visit Orthopedic Surgery Delmer Schneider MD [address] [place] [address] [facility] Start: 11-08-2022 End: 11-08-2022 Patient encounter procedure 11/08/2022 Office Visit Orthopedic Surgery Delmer Schneider MD [address] [place] [address] (Fax) [facility] Start: 11-06-2022 End: 11-06-2022 Patient encounter procedure 11/06/2022 Office Visit Orthopedic Surgery Delmer Schneider MD [address] [place] [address] (Fax) [facility] Start: 11-04-2022 End: 11-04-2022 Admission to same day surgery center 11/04/2022 Surgery IP Unit Delmer Schneider MD [address] [place] [address] (Fax) CERVICAL DISCECTOMY FUSION ANTERIor plating C5, C6, C7, T1 [facility] Comment on above: CERVICAL DISCECTOMY FUSION ANTERIor plat ing C5, C6, C7, T1 Start: 11-04-2022 End: 11-04-2022 Arthrd ant interbody decompress cervical belw c2 CERVICAL DISCECTOMY FUSION ANTERIOR ONE LEVEL Cervical radiculitis Cervical spondylosis with myelopathy Spondylolisthesis of cervical region Spondylolisthesis, acquired Spinal instabilities of cervical region 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 11/04/2022 10:30 AM EST [facility] Start: 11-04-2022 Subsequent hospital visit by physician 11/04/2022 Hospital Encounter IP Unit Delmer Schneider MD [address] [place] [address] (Fax) Cervical radiculitis; Cervical spondylosis with myelopathy; Spondylolisthesis of cervical region; Spondylolisthesis, acquired; Spinal instabilities of cervical region; 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 [facility] Comment on above: Cervical radiculitis; Cervical spondylosis with myelopathy; Spondylolisthesis of cervical region; Spondylolisthesis, acquired; Spinal instabilities of cervical region; 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 Start: 11-04-2022 End: 11-04-2022 Arthrd ant interbody decompress cervical belw c2 CERVICAL DISCECTOMY FUSION ANTERIOR ONE LEVEL Cervical radiculitis Cervical spondylosis with myelopathy Spondylolisthesis of cervical region Spondylolisthesis, acquired Spinal instabilities of cervical region 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 11/04/2022 7:45 AM EST [facility] Start: 07-28-2022 Adolescent depression screening assessment Depression Screening [facility] Start: 07-28-2022 Hepatitis C screening Hepatitis C Screening [facility] Start: 07-28-2022 HIV screening HIV Screening [facility] Start: 07-28-2022 Social Influencers of Health Screening Social Influencers of Health Screening [facility] Start: 04-30-2022 Influenza vaccination Influenza Vaccine (#1) [facility] Start: 03-30-2022 Influenza vaccination Flu vaccine (#1) [facility] Start: 02-12-2022 Lipid panel [facility]ids [facility] Start: 2016 Administration of varicella zoster vaccine Zoster (Shingles) Vaccine (1 of 2) [facility] Start: 2016 Shingles vaccine (1 of 2) Shingles vaccine (1 of 2) [facility] Start: 2016 Zoster Vaccines (1 of 2) Zoster Vaccines (1 of 2) [facility] Start: 2011 Screening for malignant neoplasm of colon [facility] Start: 1985 DTaP,Tdap and Td Vaccines (1 - Tdap) DTaP,Tdap and Td Vaccines (1 - Tdap) [facility] Start: 1985 DTaP,Tdap,and Td Vaccines (1 - Tdap) DTaP,Tdap,and Td Vaccines (1 - Tdap) [facility] Start: 1985 DTaP/Tdap/Td vaccine (1 - Tdap) DTaP/Tdap/Td vaccine (1 - Tdap) [facility] Start: 1984 Adult BMI Follow Up Plan Adult BMI Follow Up Plan [facility] Start: 1984 Hepatitis C screening Hepatitis C screen [facility] Start: 1981 HIV screening HIV screen [facility] Start: 1978 Depression Screen Depression Screen [facility] Start: 1978 Depression Screening Depression Screening [facility] Start: 1976 Lipid panel Lipids [facility] Start: 04-04-1967 COVID-19 Vaccine (#1) COVID-19 Vaccine (#1) [facility] Start: 1966 Hepatitis B Vaccines (1 of 3 - 3-dose series) Hepatitis B Vaccines (1 of 3 - 3-dose series) [facility] Start: 1966 Screening for malignant neoplasm of colon [facility] ECG 12 lead ECG 12 lead ECG STAT 08/07/2022 7:10 AM EST [facility] Phone: End: 11-04-2022 INITIATE PACU OXYGEN THERAPY PROTOCOL Initiate PACU Oxygen Therapy Protocol Respiratory Care Routine Continuous until discontinued starting 11/04/2022 [facility] Phone: Comment on above: Continuous until discontinued starting 0 11/04/2022 Oxygen therapy [Minimum Data Set] Initiate Oxygen Therapy Protocol Respiratory Care Routine Daily until discontinued starting 11/04/2022 [facility] Phone: Comment on above: Daily until discontinued starting 2022 Spirometry panel Incentive nicole metry Respiratory Care Routine Every 2hr while awake until discontinued starting 11/04/2022 [facility] Phone: Comment on above: Every 2hr while awake until discontinued starting 11/04/2022 End: 08-09-2022 Transthoracic echocardiogram (TTE) complete with PRN contrast, bubble, strain, and 3D order panel Transthoracic echocardiogram (TTE) complete with PRN contrast, bubble, strain, and 3D order panel Echocardiography Routine Atrial fibrillation with rapid ventricular response (CMS/HCC) Once for 1 Occurrences starting 08/09/2022 until 08/09/2022 [facility] Phone: Comment on above: Once for 1 Occurrences starting 08/09/20 22 until 08/09/2022 End: 11-04-2022 TYPE AND SCREEN [facility] Phone: Comment on above: One Time for 1 Occurrences starting 03/2023 until 11/04/2022 End: 11-04-2022 XR CERVICAL SPINE (2-3 VIEWS) XR CERVICAL SPINE (2-3 VIEWS) Imaging Routine Once for 1 Occurrences starting 11/04/2022 until 11/04/2022 [facility] Phone: Comment on above: Once for 1 Occurrences starting 11/05/19 23 until 11/04/2022 [facility] Immunizations Immunization Date Immunization Notes Care Provider Frieda east 11-25-2023 tetanus toxoid, redu sanjana diphtheria toxoid, and acellular pertussis vaccine, adsorbed Susan BUTLER Work Phone: [facility] 05-10-2017 influenza, injectabl e, quadrivalent, preservative free Kary Claros RN [facility] [employer] [facility] 05-10-2017 influenza virus vaccine, unspecified formulation Ralph Edmonds DO Work Phone: [facility] Payers Date Payer Category Payer Blue Cross Blue Shie ld Managed Care - Other REPLACED BY [facility] [id number] 2022 Medicaid [id number] 2022 Medicaid [id number] 2022 Medicaid [id number] 2022 Unknown 2021 Blue Cross Blue Shield [id number] 2019 Private Health Insurance [id number] 1966 Unknown [id number] 2.16.840.1.885720.3.579.2. 647 1966 Unknown [id number] 2.16.840.1.960404.3.579.2. 1143 1966 Unknown [id number] 2.16.840.1.203306.3.579.2. 593 1966 Unknown [id number] 2.16.840.1.609985.3.579.2. 593 1966 Unknown [id number] 2.16.840.1.173966.3.579.2. 593 1966 Unknown [id number] 2.16.840.1.834223.3.579.2. 593 1966 Unknown [id number] 2.16.840.1.395316.3.579.2. 754 1966 Unknown [id number] 2.16.840.1.507075.3.579.2. 754 1966 Unknown [id number] 2.16.840.1.330692.3.579.2. 754 1966 Unknown [id number] 2.16.840.1.242950.3.579.2. 754 1966 Unknown [id number] 2.16.840.1.621524.3.579.2. 754 1966 Unknown [id number] 2.16.840.1.353216.3.579.2. 754 1966 Unknown [id number] 2.16.840.1.056448.3.579.2. 754 1966 Unknown [id number] 2.16.840.1.578154.3.579.2. 196 1966 Unknown [id number] 2.16.840.1.184883.3.579.2. 196 1966 Unknown [id number] 2.16.840.1.361640.3.579.2. 1259 1966 Unknown [id number] 2.16.840.1.528227.3.579.2. 1259 1966 Unknown [id number] 2.16.840.1.788517.3.579.2. 1286 1966 Unknown [id number] 2.16.840.1.218911.3.579.2. 1285 1966 Unknown [id number] 2.16.840.1.438803.3.579.2. 1285 1966 Unknown [id number] 2.16.840.1.134101.3.579.2. 1285 1966 Unknown [id number] 2.16840.1.751138.3.579.2. 1285 1966 Unknown [id number] 2.16.840.1.541093.3.579.2. 1285 1966 Unknown [id number] 2.840.1.770572.3.579.2. 1285 1966 Unknown [id number] 2.16.840.1.432561.3.579.2. 1285 1966 Unknown [id number] 2.840.1.273596.3.579.2. 1285 1966 Unknown [id number] 2.16840.1.251473.3.579.2. 1285 1966 Unknown [id number] 2.16840.1.700836.3.579.2. 1285 1966 Unknown [id number] 2.16840.1.814835.3.579.2. 1285 1966 Unknown [id number] 2.840.1.754384.3.579.2. 1285 1966 Unknown [id number] 2.16840.1.011358.3.579.2. 1285 1966 Unknown [id number] 2.840.1.466830.3.579.2. 1285 1966 Unknown [id number] 2.16840.1.745141.3.579.2. 1286 1959 Blue Cross Blue Shield [id number] Social History Date Type Detail Facility Start: 08-07-2022 End: 08-10-2022 Tobacco smoking status NHIS Ex-smoker [facility] Start: 07-26-1992 End: 07-26-2012 History of tobacco use Current smoker [facility] Start: 07-26-1992 End: 07-26-2012 History of tobacco use Cigarette Smoker [facility] Start: 08-07-2022 End: 08-10-2022 Tobacco use and exposure Smokeless tobacco non-user [facility] Start: 08-07-2022 Alcohol intake Ex-drinker (finding) [facility] Start: 08-07-2022 Alcohol Comment I haven't dra gallagher in a long while [facility] Start: 1965 Sex Assigned At Not on file T [facility] Start: 07-28-2022 End: 11-04-2022 Exposure to SARS-CoV-2 (event) Not sure [facility] Start: 08-10-2022 End: 05-27-2023 Cigarettes smoked current (pack per day) - Reported 1 [facility] Start: 05-27-2023 End: 09-12-2024 Alcohol intake Current drinker of alcohol (finding) [facility] Phone: Start: 02-08-2019 End: 05-27-2023 Tobacco use panel [facility] Are you worried or concerned that in the next two months you may not have stable housing that you own, rent or stay in as a part of a household? No [facility] Start: 04-06-2023 Tobacco smoking stat us RIIS Never smoked tobacco [facility] Start: 04-15-2023 Alcohol Comment 6 or more perfecto walker weekly [facility] Start: 1965 Sex Assigned At Male F [facility] Start: 04-04-2015 Sex Male (finding) [facility] Medical Equipment Procedure Code Equipment Code Equipment Origin al Text Equipment Identifier Dates Valve Mtrl 31-33 mm 36mm 23.4mm Onx 17.8mm [facility] Sw Rng Xtd - [id number] - [id number] Start: 08-18-2022 Spira-C Integrat ed, 3.5mm, Variable Angle, Self-Drilling Bone Screw, 14mm [id number] Start: 11-04-2022 Goals Date Patient Goal Desired Activity /State Personal health goal Comment on above: Formatting of this n ote might be different from the original. Evaluation of progress towards goal: Patient will discharge with home health care. - Ernst Holland RN 08/20/22 11:21 AM Clinical Notes 06-08-2022 to 09-18-2024 Telephone Encounter - Rosalva Vieyra RN - 09/18/2024 9:04 AM ESTTelephone Encounter - Rosalva Vieyra RN - 09/18/2024 9:04 AM Cole Marie MD - 09/12/2024 2:30 PM ESTPatient Instructions Note Date & Type Note Facility 09-18-2024 Miscellaneous Notes Last OV 09/12/24.slm documented in this encounter [facility] 09-18-2024 Telephone encounter Note Last OV 09/12/24.slm [employer] 09-12-2024 History of Present illness Narrative Sterling Bond Date of visit: 09/12/2024 Date of : 1965 Age: 58 y.o. Patient Active Problem List Diagnosis Paroxysmal atrial fibrillation ([facility]) Primary hypertension Anticoagulated on Coumadin History of mitral valve replacement ASCVD (arteriosclerotic cardiovascular disease) Essential hypertension Hx of hyperlipidemia Nonrheumatic mitral valve regurgitation Allergies Allergen Reactions Codeine Nausea Current Outpatient Medications Medication Sig Dispense Refill acetaminophen (TYLENOL EXTRA STRENGTH) 500 mg tablet Take 2 tablets (1,000 mg total) by mouth every 6 (six) hours as needed for pain. aspirin 81 mg Take 1 tablet (81 mg total) by mouth in the morning. 90 tablet 1 baclofen (LIORESAL) 20 mg tablet Take 1 tablet (20 mg total) by mouth in the morning and 1 tablet (20 mg total) before bedtime. cholecalciferol (VITAMIN D3) 1,000 units tablet Take 1 tablet (1,000 Units total) by mouth in the morning. cyanocobalamin (VITAMIN B-12) 100 MCG tablet Take 1 tablet (100 mcg total) by mouth in the morning. gabapentin (NEURONTIN) 600 mg tablet Take by mouth nightly. lisinopril-hydroCHLOROthiazide (PRINZIDE,ZESTORETIC) 20-25 mg per tablet Take 1 tablet by mouth in the morning. 0 omeprazole (PriLOSEC) 40 mg capsule Take 1 capsule (40 mg total) by mouth in the morning. rosuvastatin (CRESTOR) 20 mg tablet Take 1 tablet (20 mg total) by mouth daily. semaglutide (OZEMPIC) 0.25 mg or 0.5 mg (2 mg/3 mL) pen injector Inject 0.5 mg under the skin every 7 days. metoprolol succinate XL (TOPROL XL) 100 mg 24 hr tablet Take 1 tablet (100 mg total) by mouth nightly. 90 tablet 3 warfarin (COUMADIN) 2.5 mg tablet Take 2-3 tablets (5-7.5 mg total) by mouth in the evening. as directed by Herbert CALVIN (Medication Therapy Management). 270 tablet 0 No current facility-administered medications for this visit. Chief Complaint Patient presents with Follow-up 16 mo f/u-l/s RDG-high hear rate-denied sooner appt-sched appt w pt History of Present Illness 58-year-old male here in follow-up. Was last seen by Dr Andrews in 2022 , visit reviewed Has a history of MVR for primary severe MR and chronic heart failure with preserved ejection fraction that resolved after valvular replacement did not require diuretic since, primary hypertension postop paroxysmal atrial fibrillation that did not recur, frequent symptomatic PACs Patient tells me that his PAC s are worse, feels the mostly at night every single night and it is very Uncomfortable along with a mechanical sound of his valve his blood pressure is at goal he continues to loose weight with ozempic and he is down 30 lbs since last year Past Medical History: Diagnosis Date Arrhythmia Atrial fibrillation ([facility]) Chronic kidney disease Hyperlipidemia Hypertension Kidney stone Kidney stones Obesity SHANNAN (obstructive sleep apnea) CPAP Respiratory failure ([facility]) No data recorded No data recorded No data recorded Past Surgical History: Procedure Laterality Date Cardiac catheterization Bilateral 08/13/2022 Performed by Jazzy Medrano MD at [facility] COLONOSCOPY KNEE SURGERY NECK SURGERY N/A 10/2022 REPLACE VALVE MITRAL WITH ON-X 31/33MM WITH RICHARD AND LEFT ARTIAL APPENDAGE LIGATION 45MM ATRICLIP N/A 08/18/2022 Performed by Christian Chapa MD at [facility] Family History Problem Relation Age of Onset Heart disease Mother Hypertension Mother No Known Problems Father Social History Socioeconomic History Marital status: Spouse name: Not on file Number of children: Not on file Years of education: Not on file Highest education level: Not on file Occupational History Not on file Tobacco Use Smoking status: Former Current packs/day: 0.00 Average packs/day: 1 pack/day for 20.0 years (20.0 ttl pk-yrs) Types: Cigarettes Start date: 07/26/1992 Quit date: 07/26/2012 Years since quittin.1 Smokeless tobacco: Never Vaping Use Vaping status: Never Used Substance and Sexual Activity Alcohol use: Yes Drug use: Never Sexual activity: Defer Other Topics Concern Caffeine Use Yes Social History Narrative Not on file Social Drivers of Health Financial Resource Strain: Not on file Food Insecurity: No Food Insecurity (09/12/2024) Hunger Screening Food Insecurity - Worry: Never True Food Insecurity - Inability: Never True Transportation Needs: Not on file Physical Activity: Not on file Stress: Not on file Social Connections: Not on file Interpersonal Safety: Unknown (10/21/2023) [facility] from [facility] [place] Safety & Environment Fear of Current or Ex-Partner: Not on file Emotionally Abused: Not on file Physically Abused: Not on file Sexually Abused: Not on file Physically or Sexually Abused: Not on file Housing Instability: Not on file Review of Systems Review of Systems Constitutional: Negative. HENT: Negative. Eyes: Negative. Cardiovascular: Negative. Respiratory: Negative. Endocrine: Negative. Hematologic/Lymphatic: Bruises/bleeds easily. Skin: Negative. Musculoskeletal: Positive for back pain. Gastrointestinal: Negative. Genitourinary: Negative. Neurological: Negative. Psychiatric/Behavioral: The patient is nervous/anxious. Allergic/Immunologic: Negative. Vascular: Negative. CARDIOVASCULAR: Please review HPI. Physical Examination General appearance: Alert, oriented and cooperative. In no acute distress. Skin: Warm and dry to touch. Head: Normocephalic, without obvious abnormality, atraumatic. Ears, Nose, Mouth, Throat: Throat clear without erythema or exudate. Dentition intact. Eyes: Conjunctivae unremarkable, EOM intact. Neck: No JVD, No carotid bruit. Neck supple, trachea midline. Respiratory: Clear to auscultation bilaterally, no use of accessory muscles. Cardiovascular: RRR with normal S1 and S2 with no murmurs. Gastrointestinal: Soft, non-tender. Bowel sounds normal. Musculoskeletal: No peripheral edema. Neurologic: Oriented to time, person and place, affect appropriate. No focal/major motor defects noted. Psychiatric: Appropriate mood, memory and judgement. VITAL SIGNS: BP 118/70 (BP Site: Left Arm, BP Postition: Sitting) Pulse 100 Ht 170.2 cm (5' 7 ) Wt 106.3 kg (234 lb 6.4 oz) SpO2 97% BMI 36.71 kg/m Orders Placed or Reconciled This Encounter Medications DISCONTD: metoprolol tartrate (LOPRESSOR) 25 mg tablet Sig: Take 0.5 tablets (12.5 mg total) by mouth in the morning and 0.5 tablets (12.5 mg total) before bedtime. metoprolol succinate XL (TOPROL XL) 100 mg 24 hr tablet Sig: Take 1 tablet (100 mg total) by mouth nightly. Dispense: 90 tablet Refill: 3 warfarin (COUMADIN) 2.5 mg tablet Sig: Take 2-3 tablets (5-7.5 mg total) by mouth in the evening. as directed by Herbert CALVIN (Medication Therapy Management). Dispense: 270 tablet Refill: 0 Medications Discontinued During This Encounter Medication Reason metoprolol tartrate (LOPRESSOR) 25 mg tablet Alternate therapy warfarin (COUMADIN) 2.5 mg tablet Reorder [id number] Score: 1 0.6% Stroke risk per year, 0.9% risk of stroke/TIA/systemic embolism IMPRESSIONS/PLAN 1. Nonrheumatic mitral valve regurgitation - Echo complete W/O contrast; Future 2. Paroxysmal atrial fibrillation ([facility]) - POCT EKG 3. Anticoagulated on Coumadin - warfarin (COUMADIN) 2.5 mg tablet; Take 2-3 tablets (5-7.5 mg total) by mouth in the evening. as directed by Herbert CALVIN (Medication Therapy Management). Dispense: 270 tablet; Refill: 0 4. History of mitral valve replacement - warfarin (COUMADIN) 2.5 mg tablet; Take 2-3 tablets (5-7.5 mg total) by mouth in the evening. as directed by Herbert CALVIN (Medication Therapy Management). Dispense: 270 tablet; Refill: 0 5. 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 ([facility]) 6. Primary hypertension 7. Premature atrial complex - metoprolol succinate XL (TOPROL XL) 100 mg 24 hr tablet; Take 1 tablet (100 mg total) by mouth nightly. Dispense: 90 tablet; Refill: 3 - Holter monitor 24-48 hour; Future Nonrheumatic severe primary MR due to bileaflet prolapse s/p 31/33 mm On-X, LAI ligation with AriClip, PFO closure 07/2022 Post op, pAF, negative event monitors after surgery for AF, Frequent PACs, symptomatic Chronic HFpEF did not require any diuretic since his MVR Mild Nonobstructive CAD 07/2022 Essential HTN Obesity with BMI of 36.7 on Ozempic Acquired coagulopathy most recent INR 4.5 --- he was taking lisinopril 20/hydrochlorothiazide 25 BID , his blood pressure is at goal and his potassium normal on most recent lab done on 08/21/24 -- discontinue Lopressor 12.5 mg b.I.d. and switch to Toprol 100 mg nightly, cut down lisinopril/hydrochlorothiazide to once a day he was instructed to check his blood pressure at home as we might need to up titrate the lisinopril dose if it BP > 130/80 -- we will we will get a 24 hour Holter monitor although I suspect frequent PAC would like to rule out Afib with his history -- he never got postop, echocardiogram, ordered today TODAYS ORDERS Orders Placed This Encounter Procedures Holter monitor 24-48 hour POCT EKG Echo complete W/O contrast FOLLOW UP Return in about 1 year (around 09/12/2025). PCP: AMIRAH ZAPATA MD Referring Physician: [place] [address] Pt scheduled for testing while in office today. Instructions reviewed with pt. documented in this encounter [facility] Instructions Lizet Marie MD - 09/12/2024 2:30 PM EST -- Decrease Lisinopril hydrochlorothiazide dose to once a day -- discontinue lopressor and switch Toprol 100 mg nightly -- schedule your echocardiogram -- 24 h holter monitor -- Check your blood pressure with the changes we made at least 3 times a week , we might need to increase lisinopril dose if elevated. documented in this encounter [facility] 09-11-2024 Miscellaneous Notes Called patient to remind them to bring their most current copy of their medication list with them to their appt. Patient verbalizes understanding. documented in this encounter [facility] 09-11-2024 Telephone encounter Note Called patient to remind them to bring their most current copy of their medication list with them to their appt. Patient verbalizes understanding. [facility] 09-11-2024 Telephone encounter Note OARRS reviewed, Rx sent into patient's pharmacy. [facility] 09-11-2024 Miscellaneous Notes OARRS reviewed, Rx sent into patient's pharmacy. Pt called back stating she thinks it was valium the last time Pt's states he needs to he needs something for his claustrophobia during his MRI tomorrow. She also states that one pill isn't enough that he is a big marco and will need two. Drug sam joseluis documented in this encounter [facility] 09-11-2024 Telephone encounter Note Pt called back stating she thinks it was valium the last time [facility] 09-11-2024 Telephone encounter Note Pt's states he needs to he needs something for his claustrophobia during his MRI tomorrow. She also states that one pill isn't enough that he is a big marco and will need two. Drug sam pizarro [facility] 08-29-2024 History of Present illness Narrative 15 minute dbqg-io-htib follow-up anticoagulation appointment. INR performed in office per protocol. INR 4.5 (goal range: 2.5-3.5). Patient reports: Taking warfarin dosing as documented. Missed or extra doses of warfarin: No Changes to medications: No Changes to lifestyle (diet / alcohol / smoking / activity): YES Few drinks yesterday- (2 vodka, eggnog) Recent emergency department visit / hospitalization / health changes / new contraindication to current anticoagulant: YEs Recent viral illness Signs/symptoms of bruising/bleeding or clotting or any intolerable adverse events: No Upcoming procedures: No Anticoagulant prescription needed: No Seen referring provider in the last year Duration of therapy reviewed Assessment: INR is elevated due to ETOh yesterday. Patient rarely consumes ETOH anymore, therefore would anticipate 3 drinks + recent viral illness to raise INR to current level. Will hold x1, then resume home dose Plan: Patient instructed to hold warfarin 08/29, then resume 5 mg MWF and 7.5 mg AOD. Check INR in 4 week(s). Patient is usually a 6 week follow up Patient verbalizes understanding of anticoagulant dosing instructions and information discussed. Dosing regimen, counseling, and follow-up appointment were provided to the patient. Patient reminded to call with questions or any medication changes. Patient instructed to seek medical attention if any major bleeding/bleeding that persists or worsens. Elpidio Arriaga RPH 08/29/24 0900 [facility] History of Present illness Narrative 15 minute yrij-eq-tgta follow-up anticoagulation appointment. INR performed in office per protocol. INR 2.2 (goal range: 2.5-3.5). Patient reports: Taking warfarin dosing as documented. Missed or extra doses of warfarin: No Changes to medications: No Changes to lifestyle (diet / alcohol / smoking / activity): YES Patient has lost 253--> 215/220 in 3 months Spinach/kale salads this week No ETOH Recent emergency department visit / hospitalization / health changes / new contraindication to current anticoagulant: No Signs/symptoms of bruising/bleeding or clotting or any intolerable adverse events: No Upcoming procedures: No Anticoagulant prescription needed: YES- DDM Seen referring provider in the last year- no. Attempting to schedule, but 2024 calendar not available yet. Patient will call again wednesday Duration of therapy reviewed- yes Assessment: INR is subtherapeutic. This is likely due to weight loss over the past few months. We will increase weekly dose 6% Plan: Patient instructed to increase to warfarin 7.5 mg 08/11, then increase weekly dose to 5 mg MWF and 7.5 mg AOD. Check INR in 2 week(s). Patient is usually a 6 week follow up Patient verbalizes understanding of anticoagulant dosing instructions and information discussed. Dosing regimen, counseling, and follow-up appointment were provided to the patient. Patient reminded to call with questions or any medication changes. Patient instructed to seek medical attention if any major bleeding/bleeding that persists or worsens. Elpidio Arriaga RPH 08/11/24 1536 [facility] 06-30-[facility] History of Present illness Narrative 15 minute djht-no-ngla follow-up anticoagulation appointment. INR performed in office per protocol. INR 2.7 (goal range: 2.5-3.5). Patient reports: Taking warfarin dosing as documented. Missed or extra doses of warfarin: No Changes to medications: YES Lisinopril increased to BID Changes to lifestyle (diet / alcohol / smoking / activity): No Recent emergency department visit / hospitalization / health changes / new contraindication to current anticoagulant: No Signs/symptoms of bruising/bleeding or clotting or any intolerable adverse events: No Upcoming procedures: No Anticoagulant prescription needed: No Seen referring provider in the last year Duration of therapy reviewed Assessment: INR is remaining stable in therapeutic range on current warfarin regimen. Patient attempted to scheduled with [facility] and was instructed to call back in 10 days for 2024 appt once their schedule is finalized. Note written on dosing card as reminder. Plan: Patient instructed to continue warfarin 7.5 mg Tue/Th/Sat and 5 mg AOD. Check INR in 6 week(s). Patient verbalizes understanding of anticoagulant dosing instructions and information discussed. Dosing regimen, counseling, and follow-up appointment were provided to the patient. Patient reminded to call with questions or any medication changes. Patient instructed to seek medical attention if any major bleeding/bleeding that persists or worsens. Elpidio Arriaga RPH 06/30/24 0831 documented in this encounter [facility] 06-27-2024 History of Present illness Narrative Images from the original note were not included. HPI Med Refill Additional comments: Baclofen , Rosuvastatin- would like to see if you can rx Gabapentin instead of pain mgt. Last edited by Daphne Zafar LPN on 06/27/2024 4:39 PM. Subjective Patient ID: Sterling Bond is a 58 y.o. male who presents for weight check. Sterling is present today for weight check. Started [employer] 04/06/23. 8/04/21 wt - 261 12/02/23 wt - 239 Today wt - 225.8 Pt is watching what he eats and eating smaller portions. He is walking around 6 miles a day. States he has hit a plateau. Getting right sided knee pain, gracia splints, and ankle pain. Worse at night, then gets a little better once he gets moving. Current Outpatient Medications on File Prior to Visit Medication Sig Dispense Refill gabapentin (Neurontin) 300 MG capsule take 1 capsule by mouth once daily (Patient taking differently: Take 300 mg by mouth in the morning and 300 mg in the evening and 300 mg before bedtime.) 30 capsule 2 acetaminophen (Tylenol 8 Hour) 650 MG ER tablet Take 2 tablets by mouth in the morning. Do not crush, chew, or split. . acetaminophen (Tylenol) 500 MG tablet Take 2 tablets by mouth in the evening aspirin 81 MG EC tablet 1 (one) time each day at the same time. cyanocobalamin (Vitamin B-12) 100 MCG tablet 1 (one) time each day at the same time. lisinopril-hydroCHLOROthiazide 20-25 MG tablet Take 2 tablets by mouth Daily 200 tablet 3 metoprolol tartrate (Lopressor) 25 MG tablet Take 0.5 tablets by mouth in the morning and 0.5 tablets before bedtime. Multiple Vitamin (multivitamin) capsule Take 1 capsule by mouth Daily omeprazole (PriLOSEC) [address] capsule TAKE 1 CAPSULE BY MOUTH EVERY DAY 30 capsule 1 ondansetron (Zofran) 4 MG tablet Take 1 tablet by mouth every 8 (eight) hours if needed for nausea or vomiting. Semaglutide-Weight Management (Wegovy) 2.4 MG/0.75ML solution auto-injector Inject under the skin warfarin (Coumadin) 2.5 MG tablet take 1 to 2 tablets by mouth every evening [DISCONTINUED] baclofen (Lioresal) 20 MG tablet Take 1 tablet (20 mg) by mouth in the morning and 1 tablet (20 mg) before bedtime. 200 tablet 0 [DISCONTINUED] cholecalciferol (Vitamin D-3) 25 MCG (1000 UT) tablet Take 1 tablet by mouth in the morning. [DISCONTINUED] diclofenac sodium (Voltaren) 1 % gel Apply 4 g topically in the morning and 4 g in the evening and 4 g before bedtime. 150 g 3 [DISCONTINUED] gabapentin (Neurontin) 600 MG tablet Take 1 tablet by mouth at bedtime. [DISCONTINUED] lisinopril-hydroCHLOROthiazide 20-25 MG tablet TAKE 2 TABLETS IN THE MORNING 200 tablet 1 [DISCONTINUED] oxyCODONE-acetaminophen (Percocet) 5-325 MG tablet Take 1 tablet by mouth every 6 (six) hours if needed for moderate pain. [DISCONTINUED] oxyCODONE-acetaminophen (Percocet) 7.5-325 MG tablet Take 1 tablet by mouth every 4 (four) hours if needed for moderate pain or severe pain. [DISCONTINUED] rosuvastatin (Crestor) 20 MG tablet Take 20 mg by mouth every other day. No current facility-administered medications on file prior to visit. I have reviewed and reconciled the history and medication list with the patient today. Allergies Allergen Reactions Codeine Other Reaction(s): Vomiting Social History Tobacco Use Smoking status: Never Smokeless tobacco: Never Vaping Use Vaping status: Never Used Substance Use Topics Alcohol use: Yes Comment: 6 or more drinks weekly Drug use: Never Family History Problem Relation Name Age of Onset Hypertension Mother Heart disease Mother Melanoma Neg Hx Past Medical History: Diagnosis Date History of being hospitalized 08/10/2022 Atrial Fibrillation, Hemoptysis, CHF History of CT scan 02/2018 Abdomen and Pelvis was normal History of echocardiogram 06/22/2019 Echo No RWMA, Normal Diastolic Dysfunction, Mild MR, No evidence of MVP History of echocardiogram 07/31/2022 ECHO EF > 55% History of stress test 06/26/2019 showed eversible ischemia to lateral wall. EF 64% HLD (hyperlipidemia) (CMS/HCC) Hypertension (CMS/HCC) 6-7 years ago Kidney stone 2004 Moderate obstructive sleep apnea 11/20/2020 Moderate obstructive sleep apnea test Past Surgical History: Procedure Laterality Date CARDIAC CATHETERIZATION 2018 CARDIAC CATHETERIZATION 08/13/2022 COLONOSCOPY 12/13/2017 diverticulosis and redundant colon dr marcus [facility] CORONARY ANGIOGRAPHY 06/30/2019 CT ANGIOGRAM HEART CORONARY 08/10/2022 CT ANGIOGRAM TAVR 08/10/2022 ELBOW SURGERY [address] darby KNEE SURGERY Bilateral KNEE SCOPE PER DR DARBY Right 02/05/15, Left 06/12/14 LITHOTRIPSY MITRAL VALVE REPLACEMENT 08/18/2022 Mitral Valve Replacement, PFO Repair, Lt Atrial Appendage Ligation OTHER SURGICAL HISTORY RT LF ORIF- DR HUNTER SHOULDER ARTHROSCOPY Left 03/05/[address] DARBY SHOULDER ARTHROSCOPY Right 06/[address] HANKINS VENOUS ABLATION 10/07/2021 Endovascular ablation VENOUS ABLATION 11/10/2021 Successful endovenous laser ablation of the right anterior accessory saphenous vein. Dr. Cantu Visit Vitals BP 120/76 Pulse 72 Resp 16 Ht 5' 7 Wt 225 lb 12.8 oz SpO2 95% BMI 35.37 kg/m Smoking Status Never BSA 2.2 m Review of Systems Constitutional: Negative for chills, fatigue and fever. Respiratory: Negative for cough, shortness of breath and wheezing. Cardiovascular: Negative for chest pain, palpitations and leg swelling. Gastrointestinal: Negative for abdominal pain, constipation, diarrhea, nausea and vomiting. Musculoskeletal: Positive for arthralgias, back pain and gait problem. Skin: Negative for rash. Neurological: Restless legs Objective Physical Exam Constitutional: General: He is not in acute distress. Appearance: Normal appearance. HENT: Head: Normocephalic and atraumatic. Eyes: General: No scleral icterus. Cardiovascular: Rate and Rhythm: Normal rate and regular rhythm. Heart sounds: No murmur heard. Pulmonary: Effort: Pulmonary effort is normal. No respiratory distress. Breath sounds: Normal breath sounds. No wheezing, rhonchi or rales. Musculoskeletal: General: No swelling. Skin: General: Skin is warm and dry. Neurological: General: No focal deficit present. Mental Status: He is alert and oriented to person, place, and time. Psychiatric: Mood and Affect: Mood normal. Behavior: Behavior normal. Assessment/Plan Diagnoses and all orders for this visit: Cervical spondylosis - baclofen (Lioresal) 20 MG tablet; Take 1 tablet (20 mg) by mouth in the morning and 1 tablet (20 mg) before bedtime. Refill provided on the above for pt to continue to use as needed. Pure hypercholesterolemia (CMS/HCC) - rosuvastatin (Crestor) 20 MG tablet; Take 1 tablet (20 mg) by mouth every other day Refill provided on the above. Advised he is due for yearly labs. He agrees to come in next for a wellness visit and get his labs done. RLS (restless legs syndrome) Gabapentin works well for pt. Advised he should continue to follow up routinely with Dr. Vanessa Medrano, Pain Management to avoid being in breach of his contract with him, leading to dismissal from his practice. He does still follow with him for injections at times for his back. Chronic pain of right knee - diclofenac sodium (Voltaren) 1 % gel; Apply 4 g topically in the morning and 4 g in the evening and 4 g before bedtime. Start the above as prescribed. Reviewed instructions for use. Primary osteoarthritis of right knee - diclofenac sodium (Voltaren) 1 % gel; Apply 4 g topically in the morning and 4 g in the evening and 4 g before bedtime. Start the above as prescribed. Reviewed instructions for use. Class 2 severe obesity due to excess calories with serious comorbidity and body mass index (BMI) of 35.0 to 35.9 in adult ([facility]) Patient has lost 35.2 pounds since starting Semaglutide. Advised pt that this is excellent. He will continue the injections for now, and plan to wean down when ready to come off of the medication. Encouraged continue with portion control, decreasing simple sugars and carbohydrates, gradually increasing activity level. Follow up in about 3 months (around 09/27/2024) for Wellness, Fasting Labs. documented in this encounter [facility] 06-26-2024 Miscellaneous Notes Patient lvm requesting a refill of his warfarin 2.5 mg to [facility] in [place] P:[phone]. Last saw his referring provider 06/21/23. PSC LVM requesting the patient schedule an appt with his referring provider at [facility] to continue getting refills. Noted. Patient is due to [facility] visit. We will send 90 day script with no refills to ensure patient has enough medication to get to next OV. Elpidio Arriaga PharmD, [facility] June 26, 2024 10:58 AM documented in this encounter [facility] 06-26-2024 Telephone encounter Note Patient lvm requesting a refill of his warfarin 2.5 mg to [facility] in [place] P:[phone]. Last saw his referring provider 06/21/23. PSC LVM requesting the patient schedule an appt with his referring provider at [facility] to continue getting refills. [facility] 06-26-2024 Telephone encounter Note Noted. Patient is due to [facility] visit. We will send 90 day script with no refills to ensure patient has enough medication to get to next OV. Elpidio Arriaga PharmD, [facility] June 26, 2024 10:58 AM [facility] 05-19-2024 History of Present illness Narrative 15 minute glgp-ii-ktvc follow-up anticoagulation appointment. INR performed in office per protocol. INR 3.0 (goal range: 2.5-3.5). Patient reports: Taking warfarin dosing as documented. Missed or extra doses of warfarin: No Changes to medications: No Changes to lifestyle (diet / alcohol / smoking / activity): No Recent emergency department visit / hospitalization / health changes / new contraindication to current anticoagulant: No Signs/symptoms of bruising/bleeding or clotting or any intolerable adverse events: No Upcoming procedures: No Anticoagulant prescription needed: No Seen referring provider in the last year Duration of therapy reviewed Assessment: INR is remaining stable in therapeutic range on current warfarin regimen. Plan: Patient instructed to continue warfarin 7.5 mg Tue/Th/Sat and 5 mg AOD. Check INR in 6 week(s). Patient verbalizes understanding of anticoagulant dosing instructions and information discussed. Dosing regimen, counseling, and follow-up appointment were provided to the patient. Patient reminded to call with questions or any medication changes. Patient instructed to seek medical attention if any major bleeding/bleeding that persists or worsens. Elpidio Arriaga RPH 05/19/24 1538 documented in this encounter [facility] 04-28-2024 History of Present illness Narrative 15 minute hlsh-hp-icuf follow-up anticoagulation appointment. INR performed in office per protocol. INR 1.8 (goal range: 2.5-3.5). Patient reports: Taking warfarin dosing as documented. Missed or extra doses of warfarin: YES Missed dose 04/26/24 Changes to medications: No Changes to lifestyle (diet / alcohol / smoking / activity): YES Patient notes 52 pounds of weight loss since he started journey. Notes he is at plateau Recent emergency department visit / hospitalization / health changes / new contraindication to current anticoagulant: No Signs/symptoms of bruising/bleeding or clotting or any intolerable adverse events: No Upcoming procedures: No Anticoagulant prescription needed: No Seen referring provider in the last year Duration of therapy reviewed Assessment: INR is subtherapeutic likely due to missed dose. We will boost x1, then resume home dose Plan: Patient instructed to increase to warfarin 7.5 mg 04/28, then resume 7.5 mg Wed//Wed and 5 mg AOD. Check INR in 3 week(s). Patient is usually a 6 week follow up Patient verbalizes understanding of anticoagulant dosing instructions and information discussed. Dosing regimen, counseling, and follow-up appointment were provided to the patient. Patient reminded to call with questions or any medication changes. Patient instructed to seek medical attention if any major bleeding/bleeding that persists or worsens. Elpidio Arriaga RPH 04/28/24 1525 documented in this encounter [facility] 04-24-2024 Telephone encounter Note [id number] 04-24-2024 Miscellaneous Notes [id number] documented in this encounter [facility] 04-24-2024 Telephone encounter Note baclofen (Lioresal) 20 MG tablet refill. [facility] 04-24-2024 Miscellaneous Notes baclofen (Lioresal) 20 MG tablet refill. [facility] documented in this encounter [facility] 03-17-2024 History of Present illness Narrative 15 minute vyql-ed-kfoi follow-up anticoagulation appointment. INR performed in office per protocol. INR 3.5 (goal range: 2.5-3.5). Patient reports: Taking warfarin dosing as documented. Missed or extra doses of warfarin: No Changes to medications: No Changes to lifestyle (diet / alcohol / smoking / activity): No Recent emergency department visit / hospitalization / health changes / new contraindication to current anticoagulant: No Signs/symptoms of bruising/bleeding or clotting or any intolerable adverse events: No Upcoming procedures: No Anticoagulant prescription needed: No Seen referring provider in the last year Duration of therapy reviewed Assessment: INR is remaining stable in therapeutic range on current warfarin regimen. Plan: Patient instructed to continue warfarin 7.5 mg Tue/Thurs/Sat and 5 mg AOD. Check INR in 6 week(s). Patient verbalizes understanding of anticoagulant dosing instructions and information discussed. Dosing regimen, counseling, and follow-up appointment were provided to the patient. Patient reminded to call with questions or any medication changes. Patient instructed to seek medical attention if any major bleeding/bleeding that persists or worsens. Huy Elizabeth RPH 03/17/24 1521 documented in this encounter [facility] 03-09-2024 Miscellaneous Notes Patient called for a Warfarin refill for the 2.5 mg tabs, 90 day supply to be called in to [facility] in [place], [place] at [phone]. This will be the pharmacy he will use since [facility] is closing. Referring provider Clarissa MORAN. Last [facility] OV: 05/27/23. Last [facility] visit 02/04/24. Current dose: 7.5 mg Tue/Thurs/Sat and 5 mg AOD. Warfarin 2.5 mg #270 RF: 1 sent to [facility] as requested. Elpidio Arriaga PharmD, [facility] [place] March 09, 2024 11:53 AM documented in this encounter [facility] [employer] [facility] 03-09-2024 Telephone encounter Note Patient called for a Warfarin refill for the 2.5 mg tabs, 90 day supply to be called in to [facility] in [place], [place] at [phone]. This will be the pharmacy he will use since [facility] is closing. [facility] [employer] [facility] 03-09-2024 Telephone encounter Note Referring provider Clarissa MORAN. Last [facility] OV: 05/27/23. Last [facility] visit 02/04/24. Current dose: 7.5 mg Tue/Thurs/Sat and 5 mg AOD. Warfarin 2.5 mg #270 RF: 1 sent to [facility] as requested. Elpidio Arriaga PharmD, [facility] [place] March 09, 2024 11:53 AM [facility] 02-04-2024 History of Present illness Narrative 15 minute lcet-qf-amjy follow-up anticoagulation appointment. INR performed in office per protocol. INR 3.3 (goal range: 2.5-3.5). Patient reports: Taking warfarin dosing as documented. Missed or extra doses of warfarin: No Changes to medications: No Changes to lifestyle (diet / alcohol / smoking / activity): No Recent emergency department visit / hospitalization / health changes / new contraindication to current anticoagulant: No Signs/symptoms of bruising/bleeding or clotting or any intolerable adverse events: No Upcoming procedures: No Anticoagulant prescription needed: No Seen referring provider in the last year Duration of therapy reviewed Assessment: INR is remaining stable in therapeutic range on current warfarin regimen. Plan: Patient instructed to continue warfarin 7.5 mg Tue/Thurs/Sat and 5 mg AOD. Check INR in 6 week(s). Patient verbalizes understanding of anticoagulant dosing instructions and information discussed. Dosing regimen, counseling, and follow-up appointment were provided to the patient. Patient reminded to call with questions or any medication changes. Patient instructed to seek medical attention if any major bleeding/bleeding that persists or worsens. Huy Elizabeth RPH 02/04/24 1518 documented in this encounter [facility] 12-24-2023 History of Present illness Narrative 15 minute pymm-av-tvqw follow-up anticoagulation appointment. INR performed in office per protocol. INR 3.3 (goal range: 2.5-3.5). Patient reports: Taking warfarin dosing as documented. Missed or extra doses of warfarin: No Changes to medications: No Changes to lifestyle (diet / alcohol / smoking / activity): No Recent emergency department visit / hospitalization / health changes / new contraindication to current anticoagulant: No Signs/symptoms of bruising/bleeding or clotting or any intolerable adverse events: No Upcoming procedures: No Anticoagulant prescription needed: No Seen referring provider in the last year Duration of therapy reviewed Assessment: INR is remaining stable in therapeutic range on current warfarin regimen. Plan: Patient instructed to continue warfarin 7.5 mg Tue//Sat and 5 mg AOD. Check INR in 6 week(s). Patient verbalizes understanding of anticoagulant dosing instructions and information discussed. Dosing regimen, counseling, and follow-up appointment were provided to the patient. Patient reminded to call with questions or any medication changes. Patient instructed to seek medical attention if any major bleeding/bleeding that persists or worsens. Elpidio Arriaga Jimenez 12/24/23 1540 documented in this encounter [facility] 11-10-2023 History of Present illness Narrative 15 minute syoh-bo-uglo follow-up anticoagulation appointment. INR performed in office per protocol. INR 3.4 (goal range: 2.5-3.5). Patient reports: Taking warfarin dosing as documented. Missed or extra doses of warfarin: No Changes to medications: No Changes to lifestyle (diet / alcohol / smoking / activity): No Recent emergency department visit / hospitalization / health changes / new contraindication to current anticoagulant: No Signs/symptoms of bruising/bleeding or clotting or any intolerable adverse events: No Upcoming procedures: No Anticoagulant prescription needed: No Seen referring provider in the last year Duration of therapy reviewed Assessment: INR is remaining stable in therapeutic range on current warfarin regimen. Plan: Patient instructed to continue warfarin 7.5 mg Tue/Thurs/Sat and 5 mg AOD. Check INR in 6 week(s). Patient verbalizes understanding of anticoagulant dosing instructions and information discussed. Dosing regimen, counseling, and follow-up appointment were provided to the patient. Patient reminded to call with questions or any medication changes. Patient instructed to seek medical attention if any major bleeding/bleeding that persists or worsens. Elpidio Arriaga RPH 11/10/23 1541 documented in this encounter [employer] 10-13-2023 History of Present illness Narrative 15 minute dggw-cp-grlz follow-up anticoagulation appointment. INR performed in office per protocol. INR 2.0 (goal range: 2.5-3.5). Patient reports: Taking warfarin dosing as documented. Missed or extra doses of warfarin: No Changes to medications: No Changes to lifestyle (diet / alcohol / smoking / activity): YES Patient has been eating more greens this past week ~40 pounds weight loss Recent emergency department visit / hospitalization / health changes / new contraindication to current anticoagulant: No Signs/symptoms of bruising/bleeding or clotting or any intolerable adverse events: No Upcoming procedures: No Anticoagulant prescription needed: YES- [facility] Seen referring provider in the last year-yes Duration of therapy reviewed-yes Assessment: INR did not respond to the 6% dose increase, therefore we will increase weekly dose by 13%. Anticipate this change is secondary to significant weight change as well as reduction in ETOH Plan: Patient instructed to increase to warfarin 7.5 mg Tue/Thurs/Sat and 5 mg AOD. Check INR in 4 week(s). Patient is usually a 6 week f/u Patient verbalizes understanding of anticoagulant dosing instructions and information discussed. Dosing regimen, counseling, and follow-up appointment were provided to the patient. Patient reminded to call with questions or any medication changes. Patient instructed to seek medical attention if any major bleeding/bleeding that persists or worsens. Elpidio Arriaga [facility] 10/13/23 1618 Elpidio Arriaga [facility] 10/13/23 1632 documented in this encounter [facility] 10-13-2023 Miscellaneous Notes Addended by: ELPIDIO ARRIAGA on: 10/13/2023 04:32 PM Modules accepted: Orders documented in this encounter [facility] 10-13-2023 Note Addended by: ELPIDIO ARRIAGA on: 10/13/2023 04:32 PM Modules accepted: Orders [facility] 09-21-2023 History of Present illness Narrative 15 minute bzkd-kh-zxdn follow-up anticoagulation appointment. INR performed in office per protocol. INR 2.1 (goal range: 2.5-3.5). Patient reports: Taking warfarin dosing as documented. Missed or extra doses of warfarin: No Changes to medications: No Changes to lifestyle (diet / alcohol / smoking / activity): YES Increased greens 38 pounds weight loss Decreased ETOH intake Recent emergency department visit / hospitalization / health changes / new contraindication to current anticoagulant: No Signs/symptoms of bruising/bleeding or clotting or any intolerable adverse events: No Upcoming procedures: No Anticoagulant prescription needed: No Seen referring provider in the last year Duration of therapy reviewed Assessment: INR remains subtherapeutic. We will increase weekly dose by 7%. Plan: Patient instructed to increase to warfarin 7.5 mg Tues and 5 mg AOD. Check INR in 3 week(s). Patient verbalizes understanding of anticoagulant dosing instructions and information discussed. Dosing regimen, counseling, and follow-up appointment were provided to the patient. Patient reminded to call with questions or any medication changes. Patient instructed to seek medical attention if any major bleeding/bleeding that persists or worsens. Elpidio Arriaga [facility] 09/21/23 1548 documented in this encounter [facility] 08-25-2023 History of Present illness Narrative 15 minute xbeq-tv-eoco follow-up anticoagulation appointment. INR performed in office per protocol. INR 2.4 (goal range: 2.5-3.5). Patient reports: Taking warfarin dosing as documented. Missed or extra doses of warfarin: No Changes to medications: No Changes to lifestyle (diet / alcohol / smoking / activity): No Recent emergency department visit / hospitalization / health changes / new contraindication to current anticoagulant: No Signs/symptoms of bruising/bleeding or clotting or any intolerable adverse events: No Upcoming procedures: No Anticoagulant prescription needed: No Seen referring provider in the last year Duration of therapy reviewed Assessment: INR is slightly subtherapeutic Plan: Patient instructed to increase to warfarin 5 mg every day. Check INR in 3 week(s). Patient verbalizes understanding of anticoagulant dosing instructions and information discussed. Dosing regimen, counseling, and follow-up appointment were provided to the patient. Patient reminded to call with questions or any medication changes. Patient instructed to seek medical attention if any major bleeding/bleeding that persists or worsens.. Shannon Bridges [facility] 08/25/23 1020 documented in this encounter [facility] 01-01-2023 Note 1. No acute cervical spinal findings. 2. Procedure change from discectomy and interbody fusion spanning C5-T1, hardware appears intact. [facility] 12-31-2022 Note CONSULTATION CONSULTATION DATE: 12/31/2022 TO: Amirah Zapata M.D. CHIEF COMPLAINT: Includes severe left lower back pain. HISTORY OF PRESENT ILLNESS: Review of systems, past medical/surgical history were obtained and documented on the health questionnaire and is available upon request. He is a 57-year-old male, reports having had pain starting in the summer of 2021. It occurred spontaneously, increased gradually to its present state. He now complains of 5-7/10 pain in his left lower back area, described as sharp/stabbing in character, increased with activities such as standing, walking and performing transitioning maneuvers. Denies any change in bowel and bladder habits or new sensorimotor changes in the lower extremities. CURRENT MEDICATION: Includes baclofen 20 mg t.i.d., Tylenol 500 t.i.d. p.r.n., gabapentin 300 mg b.i.d. which makes him somewhat sleepy. EXAM: Notable for patient having no clinical radiculopathy or myelopathy involving his lower extremities. The patient had severe pain with lumbar facet joint loading maneuvers on the left side at L4-5, L5-S1 with myofascial spasm of the lumbar paravertebral muscles on the left side as well. He may have had some dysesthesia and hypoesthesia overlying the distribution of the lateral cutaneous branch of the iliohypogastric nerve on the left side as well, with a moderate amount of myofascial spasm of the left gluteus medius. IMPRESSION: Our impression is patient has chronic pain secondary to lumbosacral spondylosis with facet loading pain clinically on the left side. We did review his lumbar spine films, which are notable for multilevel lumbar degenerative disc disease. He also is notable for foraminal narrowing, especially at the L4-5 level and spondylitic changes of varying degrees in his lower lumbar spine bilaterally. Clinically, it is basically effecting his left side mainly. We will not address his right side. RECOMMENDATIONS: I have recommended the patient start aquatic therapy and proceed with diagnostic left sided L4-5, L5-S1 facet joint injection, and to continue with his current dose of baclofen 20 mg t.i.d. and gabapentin 300 mg. I have asked him to try changing it to two pills at h.s. As part of providing excellent, safe, comprehensive care, the following was completed at our patient's visit: 1. A medication reconciliation and review to ensure accurate knowledge of current/active medications, including asking our patients to inform us about any jucr-xcr-wsweohi medications or herbal remedies/nutritional supplements/alternative remedies. 2. A review to specifically ensure our patients have had annual screening for: elevated body mass index (BMI, see intake chart for exact total), tobacco use, screening for depression, and screening for unhealthy alcohol use. When screening is concerning, patients are provided with education and the specific recommendation to discuss the concerning health issue and treatment options with their primary care provider. [facility] 11-04-2022 History of Present illness Narrative Crackers and water given. PROGRESS NOTE Patient: Sterling Bond : 1965 Assessment & Plan: - Patient is status post ACDF C5-T1 w/ Dr. Schneider, POD #0 - Drain: , continue, empty & record output q shift - Post op uprights: awaiting - Voiding: rogers in place, remove today - Flatus: no - BM: no - Pain control: stable - DVT prophylaxis: SCDs, ABELARDO hose, ambulation - [facility] c/s for post op med mgmt, appreciate assistance - Post op doxy x 7 days - PT/OT, c-collar OOB (don lying or sitting) - Activity as tolerated no bending, lifting over 10-15 lbs, or twisting - Daily incision dressing changes - Neuro checks, Q4 - Discharge: Today Subjective: Seen and examined. Complaints of expected post op incisional pain. Denies any new numbness or tingling post op. Physical Exam: Gen: Alert and oriented x3. No acute distress. Neuro: PERRL, face symmetrical. 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 Motors 5/5 bilateral hf, ke, df, ehl, pf. No Naomi, No Clonus. Wound: stable Drain: in place Date of Procedure: 11/04/2022 Physician: Delmer Schneider M.D. SURGEON: Delmer Schneider M.D. [place] MACHINE OPERATOR: Jenny Le - site safety manager PREOPERATIVE DIAGNOSES: Radiculopathy paresthesias numbness upper extremities left worse than right - M54.12 Herniated disc protrusions C5-6, C6-7, C7-T1 - M50.022 Spondylosis with myelopathy and moderate stenosis - 6.5 mm canal - M47.12 Moderate Severe neuroforaminal stenosis left worse than right at C5-6, left C6-7 and C7-T1. Spondylolisthesis C7-T1 approximately 3.5 mm - M43.12 Cervical instability - M53.2X2 Retrolisthesis of vertebra at C5-6 - 2mm, C6-7 - 2mm - M43.10 Ataxia, loss of dexterity left hand POSTOPERATIVE DIAGNOSES: Radiculopathy paresthesias numbness upper extremities left worse than right - M54.12 Herniated disc protrusions C5-6, C6-7, C7-T1 - M50.022 Spondylosis with myelopathy and moderate stenosis - 6.5 mm canal - M47.12 Moderate Severe neuroforaminal stenosis left worse than right at C5-6, left C6-7 and C7-T1. Spondylolisthesis C7-T1 approximately 3.5 mm - M43.12 Cervical instability - M53.2X2 Retrolisthesis of vertebra at C5-6 - 2mm, C6-7 - 2mm - M43.10 Ataxia, loss of dexterity left hand PROCEDURES PERFORMED: 1. Anterior cervical discectomy and fusion C5-6 (22882). 2. Anterior cervical discectomy and fusion C6-7 (57410). 3. Anterior cervical discectomy and fusion C7-T1 (65476). 4. Titanium cage / mechanical spacer - Camber Spira C - C5-6, 8 mm lordotic (52147). 5. Titanium cage / mechanical spacer - Camber Spira C - C6-7, 8 mm lordotic (46397). 6. Titanium cage / mechanical spacer - Camber Spira C - C7-T1, 8 mm lordotic (57763). 7. Bilateral neural foraminotomies, Release of PLL, dural exposure C5-6, C6-7, C7-T1. 8. Anterior cervical fusion performed with local autograft bone (26118), and DBM putty (82817). 9. Fluoroscopic interpretation on AP, lateral, and oblique planes less than one hour. (53780) ANESTHESIA: General endotracheal intubation. BRACING: Cervical Hard Collar ESTIMATED BLOOD LOSS: 15 ML. COMPLICATIONS: None. CONDITION: Stable. SPECIMENS: Disc removed, not sent. MEDICATIONS: Perioperative antibiotics given. INTRA-OPERATIVE NEUROMONITORIN. SSEP upper / Lower extremities. 2. MEP Upper / lower extremities. 3. Electromyogram; bilateral upper extremities / EMG. 4. TO4 5. Live interpreting Neurologist Dr. Shannan Harrison M.D. DRAINS: Richard-Chapman sewn in with silk, left side. INTRAOPERATIVE FINDINGS: The patient had good discectomy and stabilization at the C5-C6-C7-T1 levels. SURGICAL INDICATIONS: Sterling Bond is a 56 y.o. male presents with complaints of chronic neck pain interscapular pain as well as radiculopathy paresthesias numbness bilateral upper extremities left side is worse. Patient is left-hand dominant. Patient does have some weakness of the left side worse distally at the hand level. Patient has failed conservative treatment. Vital Signs: Last 24 hours: Vitals: 11/04/22 0618 BP: (!) 145/84 Pulse: 68 Resp: 18 Temp: 98.2 F (36.8 C) SpO2: 96% Labs: No results found for: HGB No results found for: HCT Delmer Schneider MD 11/04/22 11:15 AM documented in this encounter [facility] Hobbs Phone: 11-04-2022 Hospital Discharge instructions Manuel Saenz RN - 11/04/2022 11:09 AM EST Home Care Instructions Activity: -Rest often -No bending, lifting, or twisting. -Take short walks and gradually increase your distance. You may climb stairs. -Wear hard collar/brace. You may remove when eating. -No exercising until ok'd by Dr. Schneider -Do NOT lift more than 5 lbs. -No driving until ok'd per Dr. Schneider -You may ride as a passenger in the car, but you MUST wear your collar/brace. -Smoking will delay wound healing & increase risk for infection. -You will be given pain medications to take every 4-6 hours as needed for pain. -You will be given a muscle relaxer to take every 8 hours as needed for spasms. Incision Care: -Keep your incision clean & dry. -Do NOT get the incision wet until after your post op follow up appointment. -Ok to shower post op day #3, but keep incision covered so that it does not get wet -NO deep soaking (swimming, hot tub, bath) until incision is completely healed (about 4 weeks) -Incision should be cleansed with Betadine and a dry dressing should be applied daily until follow up appointment. -Wash hands with soap and water after using the restroom. -You may have steri strip bandaids covering your incision. These will begin to fall off on their own. Do not peel or take them off yourself. We will remove them at your 2 week wound check. Call office if: -Signs of infection - redness, swelling, drainage, odor, fever > 101, or chills -Nausea, vomiting -Pain is NOT controlled -New weakness or change in sensation -Need medication refills Vacuum Assisted Dressing: This is a special vacuum assisted dressing that is covering a primarily closed wound. - This device is designed to help prevent wound infections and dehiscence. - From time to time the suction cannister/battery pack may beep and a make clicking noises. This is not an issues unless it begins to lose suction to the sponge portion of the dressing. - Loss of suction will allow the purple sponge to puff up and the clear plastic over it may become loose appearing. - The battery life is around 7-8 days. If the battery dies then it is okay for you to remove the dressing at that time. If you have any question call you surgeons office. - If an easily identifiable leak can be found the nursing staff may feel free to place a tegaderm over the suspected leak in an attempt to help seal it. - If you are instructed by the surgeon to remove the dressing do not worry, it is an easy process. To remove: 1. removed the batteries from the battery pack and dispose of properly. 2. simply peel the plastic off slowly and the sponge and plastic should come off like a very large Tegaderm style dressing. 3. The entire dressing and battery pack are disposable, and should be thrown away after use. 4. Cover incision site with sterile gauze and tape or similar dressing and follow your surgeon's orders 5. Do not remove dressing early without specific orders from the surgeon. You can remove it if the battery dies. If you have any questions call you surgeon's office. *If you had a spinal fusion, do NOT take NSAIDS (motrin, ibuprofen, meloxicam, celebrex) for 6 months.* *If you have any other questions or concerns please contact the office at [phone] *If the office is closed and you need to contact Dr. Schneider for an emergency please call and ask to be connected with him. Delmer Schneider MD - 11/04/2022 11:09 AM EST Continuity of Care Form Patient Name: Sterling Bond : 1965 Admit date: 11/04/2022 Discharge date: Code Status Order: Full Code Advance Directives: Advance Care Flowsheet Documentation Date/Time Healthcare Directive Type of Healthcare Directive Copy in Chart Healthcare Agent Appointed Healthcare Agent's Name Healthcare Agent's Phone Number 11/04/22 0627 No, patient does not have an advance directive for healthcare treatment -- -- -- -- -- Admitting Physician: Delmer Schneider MD PCP: No primary care provider on file. Discharging Nurse: Discharging Hospital Unit/Room#: [facility] OR POOL ROOM/NONE Discharging Unit Phone Number: Emergency Contact: Extended Emergency Contact Information Primary Emergency Contact: Madiha Bond Mobile Relation: Spouse Past Surgical History: Past Surgical History: Procedure Laterality Date CARDIAC SURGERY open heart on . was in a-fib., had mitral valve replaced and a hole in heart. has a titanium spring Immunization History: There is no immunization history on file for this patient. Active Problems: Patient Active Problem List Diagnosis Code Cervical radiculitis M54.12 Cervical spondylosis with myelopathy M47.12 Spondylolisthesis of cervical region M43.12 Spondylolisthesis, acquired M43.10 Spinal instabilities of cervical region M53.2X2 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 M50.022 Isolation/Infection: Isolation No Isolation Patient Infection Status None to display Nurse Assessment: Last Vital Signs: BP (!) 145/84 Pulse 68 Temp 98.2 F (36.8 C) (Infrared) Resp 18 Ht 5' 7 (1.702 m) Wt 250 lb 9.6 oz (113.7 kg) SpO2 96% BMI 39.25 kg/m Last documented pain score (0-10 scale): Pain Level: 0 Last Weight: Wt Readings from Last 1 Encounters: 11/04/22 250 lb 9.6 oz (113.7 kg) Mental Status: {IP PT MENTAL STATUS:} IV Access: { RELL IV ACCESS:533893234} Nursing Mobility/ADLs: Walking {CHP DME ADLs:578024395} Transfer {CHP DME ADLs:597678865} Bathing {CHP DME ADLs:500635235} Dressing {CHP DME ADLs:540538301} Toileting {CHP DME ADLs:304764790} Feeding {CHP DME ADLs:383313607} Tongue Binder {CHP DME ADLs:138154254} Med Delivery { RELL MED Delivery:697501667} Wound Care Documentation and Therapy: Incision 11/04/22 Throat (Active) Number of days: 0 Elimination: Continence: Bowel: {YES / NO:} Bladder: {YES / NO:} Urinary Catheter: {Urinary Catheter:944366385} Colostomy/Ileostomy/Ileal Conduit: {YES / NO:} Date of Last BM: Intake/Output Summary (Last 24 hours) at 11/04/2022 1108 Last data filed at 11/04/2022 1026 Gross per 24 hour Intake 3500 ml Output 415 ml Net 3085 ml No intake/output data recorded. Safety Concerns: { RELL Safety Concerns:552482954} Impairments/Disabilities: {[facility] Impairments/Disabilities:19006174 3} Nutrition Therapy: Current Nutrition Therapy: { RELL Diet List:604802668} Routes of Feeding: {CHP DME Other Feedings:401165406} Liquids: {Dining Service Inspector liquid thickness:48045} Daily Fluid Restriction: {CHP DME Yes amt example:035852868} Last Modified Barium Swallow with Video (Video Swallowing Test): {Done Not Done Date:} Treatments at the Time of Hospital Discharge: Respiratory Treatments: Oxygen Therapy: {Therapy; copd oxygen:83589} Ventilator: { CC Vent List:717893690} Rehab Therapies: {THERAPEUTIC INTERVENTION:3070613952} Weight Bearing Status/Restrictions: {[facility] Weight Bearin} Other Medical Equipment (for information only, NOT a DME order): {EQUIPMENT:002718296} Other Treatments: Patient's personal belongings (please select all that are sent with patient): {CHP DME Belongings:875150449} RN SIGNATURE: {Esignature:229786026} CASE MANAGEMENT/SOCIAL WORK SECTION Inpatient Status Date: Readmission Risk Assessment Score: Readmission Risk Risk of Unplanned Readmission: 0 Discharging to Facility/ Agency Name: Address: Phone: Fax: Dialysis Facility (if applicable) Name: Address: Dialysis Schedule: Phone: Fax: Drilling Fluids Specialist/Key Attendant signature: {Esignature:828881538} PHYSICIAN SECTION Prognosis: Good Condition at Discharge: Stable Rehab Potential (if transferring to Rehab): Good Recommended Labs or Other Treatments After Discharge: follow-up in 2 days for drain removal. Physician Certification: I certify the above information and transfer of Sterling Bond is necessary for the continuing treatment of the diagnosis listed and that he requires Home Care for less 30 days. Update Admission H&P: No change in H&P PHYSICIAN SIGNATURE: documented in this encounter [facility] Hobbs Phone: 08-09-2022 History of Present illness Narrative .cm CM received secure chat from Dr. Land requesting an Eliquis card be given to patient. CM met with pt at bedside. Eliquis card provided. Images from the original note were not included. CARDIOLOGY PROGRESS NOTE Impression: Sterling Bond is a 56 y.o. male with past medical history of hypertension, osteoarthritis, hypercholesterolemia, cervical radiculopathy, SHANNAN, obesity GERD who presents from the [facility] where he was found to be in atrial fibrillation with RVR 3 cervical spine decompression surgery. New onset atrial fibrillation with RVR -Patient noted to be in atrial fibrillation with RVR at surgical center on 08/07/2022. -EKG on admission shows atrial fibrillation with ventricular rate of 123 bpm. -TSH within normal limits. -Patient had an echocardiogram on 08/05/2022 at [facility]. Records requested and are still pending -His [id number] score is 1 (HTN) -Patient was started on Cardizem drip in the ED -Telemetry reviewed. He spontaneously converted to NSR last evening but reverted back to afib again this morning and back to NSR while I was in the room Cervical spine radiculopathy -Reports cervical muscle spasms. Takes baclofen 20 mg daily. -Patient was initially scheduled to undergo cervical spine surgery today, 08/07/2022 but this was canceled as patient presented to the surgical center in atrial fibrillation with RVR. -Surgery on hold for now. Hypertension -Stable -Historically on lisinopril-hydrochlorothiazide 20-25 mg daily as well as amlodipine Hyperlipidemia -Currently on rosuvastatin 20 mg daily. GERD -Currently on omeprazole 40 mg daily Obstructive sleep apnea -Compliant with CPAP therapy. Recommendations: -Discontinue IV dilitiazem -Increase metoprolol tartrate to 50mg twice daily for heart rate control and arrhythmia suppression -Continue Eliquis 5mg twice daily -Continue to hold home medication of amlodipine and lisinopril/HCTZ at present time as BP is well controlled -Obtain surface echocardiogram today -Anticipate discharge home later today. EP consult was offered to patient; however he would prefer to be discharged and to follow-up with a employee relations representative in [place], [place] which is closer to home Veronica Barcenas NP 08/09/22 8:12 AM EST [facility] Thank you for this consultation. If you have any questions, please feel free to call. First Call Mon-Fri [phone]: [facility] [phone] [facility] [phone] [facility] [phone] After hours/Weekends: [phone] For listed Attendings On-Call at each site click here Primary Mobile Heavy Equipment Mechanic: None prior to admission Subjective / Interval History: States that he is doing better today. He is aware of when he converted to NSR as he was previously feeling what felt like burps in his chest. He is anxious for discharge. His has a history of afib and follows with a employee relations representative in [facility] whom he is also planning to follow-up with. ROS: General: Denies fevers or chills. HEENT: Denies nasal congestion, rhinorrhea, hearing loss Cardiology: Denies chest pain or chest tightness. Denies palpitations, PND, orthopnea Pulmonary: +Cough with brownish sputum and occasional wheezing. Denies SOB. +Sleep apnea. Unable to tolerate hospital CPAP GI: Denies nausea, vomiting, or diarrhea, melena : Denies hematuria, dysuria, or incontinence Musculoskeletal: Denies joint pain or myalgias Neurology: Denies light-headedness, paraesthesias, numbness or tingling. Denies headache. Denies vertigo. Pysch: Denies anxiety or depression or sleep disturbance Cardiographics: Telemetry personally reviewed which shows: Intermittent atrial fibrillation with RVR. Ventricular rates 120-130's with periods of sinus rhythm. Telemetry currently shows NSR with heart rates in the 80's Current Facility-Administered Medications: acetaminophen (TYLENOL) tablet 650 mg, 650 mg, oral, q6h PRN, Hanh Land MD, 650 mg at 08/09/22 0606 albuterol 2.5 mg /3 mL (0.083 %) nebulizer solution 2.5 mg, 2.5 mg, nebulization, q4h PRN, Hanh Land MD, 2.5 mg at 08/09/22 0006 [Held by provider] amLODIPine (NORVASC) tablet 10 mg, 10 mg, oral, q PM, Hanh Land MD apixaban (ELIQUIS) tablet 5 mg, 5 mg, oral, BID, Veronica Barcenas NP, 5 mg at 08/08/222054 atorvastatin (LIPITOR) tablet 80 mg, 80 mg, oral, Nightly, Hanh Land MD, 80 mg at 08/08/222053 baclofen (LIORESAL) tablet 20 mg, 20 mg, oral, Daily, Hanh Land MD, 20 mg at 08/08/221108 cyanocobalamin (VITAMIN B-12) tablet 100 mcg, 100 mcg, oral, Daily, Hanh Land MD, 100 mcg at 08/08/22 1109 dilTIAZem HCl in 0.9% NaCL (CARDIZEM) 125 mg/125 mL (1 mg/mL) infusion, 5-15 mg/hr, intravenous, Continuous, Ralph Edmonds DO, Last Rate: 5 mL/hr at 08/08/222057, 5 mg/hr at 08/08/222057 gabapentin (NEURONTIN) capsule 300 mg, 300 mg, oral, BID, Hanh Land MD, 300 mg at 08/08/222054 [Held by provider] lisinopriL 20 mg, hydroCHLOROthiazide 25 mg (for ZESTORETIC), , oral, Daily, Hanh Land MD metoprolol tartrate (LOPRESSOR) tablet 25 mg, 25 mg, oral, BID, Veronica Bacrenas NP, 25 mg at 08/08/222053 ondansetron ODT (ZOFRAN-ODT) disintegrating tablet 4 mg, 4 mg, oral, q8h PRN OR ondansetron (PF) (ZOFRAN) injection 4 mg, 4 mg, intravenous, q8h PRN, Hanh Land MD oxymetazoline (AFRIN) nasal spray 2 spray, 2 spray, Each Nostril, BID, Hanh Land MD, 2 spray at 08/08/222055 pantoprazole (PROTONIX) EC tablet 40 mg, 40 mg, oral, q AM AC, Hanh Land MD, 40 mg at 08/09/22 0605 [COMPLETED] Insert peripheral IV, , , Once AND Maintain IV access, , , Until discontinued AND [COMPLETED] Saline lock IV, , , Once AND sodium chloride 0.9 % flush 10 mL, 10 mL, intravenous, BID, 10 mL at 08/08/222054 AND sodium chloride 0.9 % flush 10 mL, 10 mL, intravenous, PRN, Hanh Land MD Objective: Physical Exam: General: Sitting up on the edge of bed eating breakfast Eyes: Anicteric sclerae, pink conjunctivae, no xanthelasma ENT: Moist mucous membranes. No rhinorrhea. Normal dentition Respiratory: Clear to auscultation bilaterally. Respirations unlabored. On room air Cardiac: Irregularly irregular rate and rhythm, then regular rate and rhythm appreciated. Normal S1 and S2. No S3 or S4. PMI is not displaced. No murmur, gallop, or rub. 2+ radial and DP pulses. No peripheral edema GI: Obese, abdomen non-distended, nontender. Normal active bowel sounds Vascular: 2+ pulses bilaterally in the dorsalis pedis and posterior tibial arteries Skin: No rashes or lesions Musculoskeletal: Normal range of motion in arms. Gait not assessed Neurologic: No focal deficits noted Psych: A&Ox3. Calm and cooperative Patient Vitals for the past 24 hrs: BP Temp Temp src Pulse Resp SpO2 08/09/22 0756 118/69 36.7 C (98.1 F) Oral 84 14 93 % 08/09/22 0405 108/66 36.9 C (98.4 F) Oral 88 18 90 % 08/09/22 0011 -- -- -- -- -- 93 % 08/08/22 2315 107/68 36.6 C (97.9 F) Oral 77 18 92 % 08/08/22 2034 105/63 36.8 C (98.2 F) Oral 83 18 93 % 08/08/22 1521 103/66 37.2 C (99 F) Oral 75 -- 92 % 08/08/22 1400 -- -- -- 82 -- -- 08/08/22 1107 114/71 36.6 C (97.9 F) Oral (!) 121 -- 92 % Intake/Output Summary (Last 24 hours) at 08/09/2022 0812 Last data filed at 08/09/2022 0700 Gross per 24 hour Intake 306.29 ml Output 840 ml Net -533.71 ml Wt Readings from Last 3 Encounters: 08/07/22 113 kg (250 lb) Body mass index is 38.01 kg/m . Labs: Lab Results Component Value Date WBC 14.2 (H) 08/09/2022 HGB 13.0 (L) 08/09/2022 HCT 36.9 (L) 08/09/2022 MCV 92.7 08/09/2022 PLT 261 08/09/2022 Lab Results Component Value Date GLUCOSE 105 (H) 08/08/2022 CALCIUM 8.9 08/08/2022 NA 137 08/08/2022 K 4.1 08/08/2022 CO2 24 08/08/2022 CL 105 08/08/2022 BUN 22 (H) 08/08/2022 CREATININE 0.99 08/08/2022 Lab Results Component Value Date HSTROPI 5 08/07/2022 Lab Results Component Value Date TSH 0.83 08/07/2022 Lab Results Component Value Date ALT 17 08/08/2022 AST 16 08/08/2022 ALKPHOS 51 08/08/2022 BILITOT 1.1 08/08/2022 Lab Results Component Value Date INR 1.1 08/08/2022 Patient had complained to his MST about wheezing and shortness of breath. When I visited hime he had relocated to the chair in his room for easier breathing and he told me that he uses an albuterol inhaler at home usually multiple times daily for similar symptoms. I requested a PRN treatment for the patient and following the administration of it the patient reports symptoms to be resolved. Patient had converted to normal sinus rhythm by the time 19:30 shift report had occurred. I phoned the [facility] to confirm that the cardizem drip should be continued and was advise to allow it to run through the night and the patient will be checked in the morning. Problem: Falls: Goal: (Goal) Patient will experience maximum safety and reduce risk for falls. Outcome: Progressing Goal: Patient will not fall or injure themselves during hospitalization. Outcome: Progressing Goals: Identify possible barriers to meeting goals/advancing plan of care: remain in a-fib, on drip Stability of the patient: Moderately Unstable - Medium risk of patient condition declining or worsening End of Shift Summary: Assessment completed Images from the original note were not included. Hanh Land MD [facility] Hospitalists DAILY PROGRESS NOTE Patient Name: Sterling Bond PCP: Amirah Zapata MD Perpetual Assessment: Sterling Bond is a 56 y.o. male with PMHx of obstructive sleep apnea on CPAP, HTN, hyperlipidemia who presented from [facility] on 08/07/2022 with new onset atrial fibrillation with RVR. Remains on cardizem gtt with tentative plan for RICHARD with cardioversion on 08/10/22. Assessment and Plan New onset atrial fibrillation with RVR -Presenting from surgical center for new onset Afib with RVR with HR 110 on admission -EKG on admission with Afib RVR at HR of 123, personally reviewed -D-dimer, troponin x2 and TSH wnl -[id number] score is 1 -Echocardiogram done outpatient on 08/05/22, records requested by cardiology -Reviewed telemetry, remains in Afib -Started cardizem gtt in ED, continue for now -Cardiology consulted, NPO midnight on 08/09 for RICHARD with CV -Started eliqiuis pending RICHARD with CV Hypertension -BP readings reviewed, normotensive -Remains cardizem gtt as above -Hold home amlodipine, linsinopril/hctz for now Cervical radiculopathy -Known history, follows surgery -Had tentative plan for cervical decompression on 08/07/2022, canceled due to new onset A. fib as above -On gabapentin GERD -Cont home PPI Hyperlipidemia -Cont home statin Obstructive sleep apnea -BMI >38 -Compliant with CPAP at home Code Status: Full Code - Default Expected Date of Discharge: 08/10/22 DVT Prophylaxis Not indicated, Patient on Full Anticoagulation Disposition and Comments Lives at home with , independent at baseline. CC / Reason for follow up: Afib RVR SUBJECTIVE: Patient remained with elevated HR on Caredizem gtt. He required another bolus of Cardizem this AM with improvement in his HR. Telemetry reviewed which was consistent with Afib. He denies any nausea, vomiting, chest pain, shortness of breath. ROS: < >> The following system(s) were reviewed. Pertinent positive and negative findings are noted in the HPI. [x] Const [x] ENT [x] CV [x] [x] Musc [x] Psych [x] Allergy [x] Eyes [x] Resp [x] GI [x] Neuro [x] Skin [x] Endo [x] Heme/Lymph PHYSICAL EXAMINATION: << >>>>> Temp: 36.6 C (97.9 F) (08/08 110) Heart Rate: 121 (08/08 110) Resp: 22 (08/08 0509) BP: 114/71 (08/08 110) GENERAL: NAD EYES: Conjunctiva and sclera clear, EOMI, PERRL ENT: Hearing intact. Pharynx clear. CV: IRIR, no murmur. No JVD. No edema. RESP: Clear, no rales, rhonchi, wheezes or increase in respiratory effort, no use of accessory muscles. GI: Non-distended, soft, non-tender. No guarding, masses or rebound MUSC: Normal ROM without deformity. SKIN: Warm and dry. No rashes. NEURO: Alert, Ox3. Grossly normal motor and sensory exam. No focal deficits. PSYCH: Mood and affect are appropriate. Cooperative. I/O s last 3 shifts: I/O last 3 completed shifts: In: - (0 mL/kg) Out: 400 (3.5 mL/kg) [Urine:400 (0.1 mL/kg/hr)] Weight: 113.4 kg Reviewed 08/08/22 11:09 AM EST: [x] Laboratory [x] Radiology [x] Cardiology [x] Medications [x] Transcriptions [] Microbiology [] Outside Records [x] Family Time Spent/CCM Time: Images from the original note were not included. CARDIOLOGY PROGRESS NOTE Impression: Sterling Bond is a 56 y.o. male with past medical history of hypertension, osteoarthritis, hypercholesterolemia, cervical radiculopathy, SHANNAN, obesity GERD who presents from the [facility] where he was found to be in atrial fibrillation with RVR 3 cervical spine decompression surgery. New onset atrial fibrillation with RVR -Patient noted to be in atrial fibrillation with RVR at surgical center on 08/07/2022. -EKG on admission shows atrial fibrillation with ventricular rate of 123 bpm. -TSH within normal limits. -Patient had an echocardiogram on 08/05/2022 at [facility]. Records requested and are still pending -His [id number] score is 1 (HTN) -Patient was started on Cardizem drip in the ED -Telemetry reviewed, patient still in atrial fibrillation with RVR despite max dose of IV diltiazem Cervical spine radiculopathy -Reports cervical muscle spasms. Takes baclofen 20 mg daily. -Patient was initially scheduled to undergo cervical spine surgery today, 08/07/2022 but this was canceled as patient presented to the surgical center in atrial fibrillation with RVR. -Surgery on hold for now. Hypertension -Stable -Currently on lisinopril-hydrochlorothiazide 20-25 mg daily. Hyperlipidemia -Currently on rosuvastatin 20 mg daily. GERD -Currently on omeprazole 40 mg daily Obstructive sleep apnea -Compliant with CPAP therapy. Recommendations: -Continue IV diltiazem @15mg/hr -Agree with holding home dose of amlodipine -Start metoprolol tartrate 25mg twice daily for better heart rate control -Start Eliquis 5mg twice daily in anticipation of RICHARD guided cardioversion on Wednesday -Okay for patient to eat today. Will make NPO after midnight on Wednesday -Continue to monitor telemetry -Will follow Veronica Barcenas NP 08/08/22 10:22 AM EST [facility] Thank you for this consultation. If you have any questions, please feel free to call. First Call Wed-Wed [phone]: [facility] [phone] [facility] [phone] [facility] [phone] After hours/Weekends: [phone] For listed Attendings On-Call at each site click here Primary Mobile Heavy Equipment Mechanic: None prior to admission Subjective / Interval History: Patient is upset this morning as he was told that RICHARD/CV would be done today. He is frustrated that nothing is being done . His was also on the phone yelling that this is an emergency and that nothing was being addressed. Patient lives in [place], [place] and is two hours from home. Cardiographics: Telemetry personally reviewed which shows: Atrial fibrillation with RVR. Ventricular rates 110s-140's Current Facility-Administered Medications: acetaminophen (TYLENOL) tablet 650 mg, 650 mg, oral, q6h PRN, Hanh Land MD albuterol 2.5 mg /3 mL (0.083 %) nebulizer solution 2.5 mg, 2.5 mg, nebulization, q4h PRN, Hanh Land MD [Held by provider] amLODIPine (NORVASC) tablet 10 mg, 10 mg, oral, q PM, Hanh Land MD atorvastatin (LIPITOR) tablet 80 mg, 80 mg, oral, Nightly, Hanh Land MD baclofen (LIORESAL) tablet 20 mg, 20 mg, oral, Daily, Hanh Land MD cyanocobalamin (VITAMIN B-12) tablet 100 mcg, 100 mcg, oral, Daily, Hanh Land MD dilTIAZem HCl in 0.9% NaCL (CARDIZEM) 125 mg/125 mL (1 mg/mL) infusion, 5-15 mg/hr, intravenous, Continuous, Ralph Thomsonk, DO, Last Rate: 15 mL/hr at 08/08/22 1018, 15 mg/hr at 08/08/22 1018 gabapentin (NEURONTIN) capsule 300 mg, 300 mg, oral, BID, Hanh Land MD [Held by provider] lisinopriL 20 mg, hydroCHLOROthiazide 25 mg (for ZESTORETIC), , oral, Daily, Hanh Land MD ondansetron ODT (ZOFRAN-ODT) disintegrating tablet 4 mg, 4 mg, oral, q8h PRN OR ondansetron (PF) (ZOFRAN) injection 4 mg, 4 mg, intravenous, q8h PRN, Hanh Land MD [START ON 08/09/2022] pantoprazole (PROTONIX) EC tablet 40 mg, 40 mg, oral, q AM AC, Hanh Land MD [COMPLETED] Insert peripheral IV, , , Once AND Maintain IV access, , , Until discontinued AND [COMPLETED] Saline lock IV, , , Once AND sodium chloride 0.9 % flush 10 mL, 10 mL, intravenous, BID, 10 mL at 08/07/22 2019 AND sodium chloride 0.9 % flush 10 mL, 10 mL, intravenous, PRN, Hanh Land MD Objective: Physical Exam: General: Laying comfortably in bed, in no acute distress Eyes: Anicteric sclerae, pink conjunctivae, no xanthelasma ENT: Moist mucous membranes. No rhinorrhea. Normal dentition Respiratory: Clear to auscultation bilaterally. Respirations unlabored. On room air Cardiac: Irregularly irregular rate and rhythm, tachycardiac, normal S1 and S2. No S3 or S4. PMI is not displaced. No murmur, gallop, or rub. 2+ radial and DP pulses. No peripheral edema GI: Obese, abdomen non-distended, nontender. Normal active bowel sounds Vascular: 2+ pulses bilaterally in the dorsalis pedis and posterior tibial arteries Skin: No rashes or lesions Musculoskeletal: Normal range of motion in arms. Gait not assessed Neurologic: No focal deficits noted Psych: A&Ox3. Irritable Patient Vitals for the past 24 hrs: BP Temp Temp src Pulse Resp SpO2 08/08/22 0738 127/72 36.8 C (98.2 F) Oral 99 -- 95 % 08/08/22 0509 115/74 36.8 C (98.2 F) Oral 92 22 96 % 08/08/22 0034 -- -- -- -- 25 91 % 08/08/22 0010 112/67 36.4 C (97.5 F) Oral (!) 119 16 91 % 08/07/22 2222 100/68 36.9 C (98.4 F) Oral 101 -- 92 % 08/07/22 2148 110/66 36.8 C (98.2 F) Oral (!) 127 16 92 % 08/07/222000 108/78 36.5 C (97.7 F) Oral (!) 111 18 95 % 08/07/22 1834 137/86 37.1 C (98.7 F) -- (!) 130 -- 93 % 08/07/22 1615 -- -- -- 103 -- 92 % 08/07/22 1545 -- -- -- 103 20 93 % 08/07/22 1440 (!) 120/96 -- -- (!) 127 21 95 % 08/07/22 1400 -- -- -- (!) 126 (!) 31 93 % 08/07/22 1355 96/82 -- -- (!) 119 24 95 % 08/07/22 1350 -- -- -- (!) 114 21 95 % 08/07/22 1348 114/70 -- -- (!) 120 12 93 % 08/07/22 1345 -- -- -- (!) 126 26 95 % 08/07/22 1340 114/70 -- -- (!) 119 18 97 % 08/07/22 1335 -- -- -- (!) 118 23 95 % 08/07/22 1330 -- -- -- (!) 118 26 94 % 08/07/22 1325 103/68 -- -- (!) 113 18 94 % 08/07/22 1320 -- -- -- 105 (!) 29 95 % 08/07/22 1315 -- -- -- (!) 122 24 94 % 08/07/22 1310 109/75 -- -- (!) 122 23 94 % 08/07/22 1305 96/71 -- -- 106 25 94 % 08/07/22 1300 -- -- -- (!) 115 (!) 27 91 % 08/07/22 1255 (!) 70/41 -- -- (!) 117 (!) 27 93 % 08/07/22 1250 -- -- -- 104 21 94 % 08/07/22 1245 -- -- -- 105 26 94 % 08/07/22 1240 94/71 -- -- (!) 121 20 96 % 08/07/22 1235 -- -- -- 102 (!) 27 94 % 08/07/22 1230 -- -- -- 105 (!) 28 96 % 08/07/22 1225 102/67 -- -- 109 23 96 % 08/07/22 1220 -- -- -- 105 24 96 % 08/07/22 1215 -- -- -- 102 23 94 % 08/07/22 1210 (!) 124/113 -- -- (!) 117 19 94 % 08/07/22 1205 -- -- -- (!) 112 21 95 % 08/07/22 1200 -- -- -- (!) 117 22 94 % 08/07/22 1155 (!) 151/105 -- -- (!) 111 20 96 % 08/07/22 1150 -- -- -- (!) 122 (!) 28 94 % 08/07/22 1145 -- -- -- (!) 119 22 96 % 08/07/22 1140 (!) 135/96 -- -- (!) 117 23 96 % 08/07/22 1135 -- -- -- (!) 129 25 95 % 08/07/22 1130 -- -- -- (!) 115 21 95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 radiculitis nos Cervical spondylosis with myelopathy Spondylolisthesis of cervical region Acquired spondylolisthesis Spondylolisthesis, acquired Acquired spondylolisthesis Spinal instabilities of cervical region Unspecified musculoskeletal disorders and symptoms referable to neck 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 documented in this encounter [employer] Phone: evaluation note* Diagnosis Encounter for examination for normal comparison or control in clinical research program Examination of participant in clinical trial Cervical radiculitis Brachial neuritis or radiculitis nos Cervical spondylosis with myelopathy Spondylolisthesis of cervical region Acquired spondylolisthesis Spondylolisthesis, acquired Acquired spondylolisthesis Spinal instabilities of cervical region Unspecified musculoskeletal disorders and symptoms referable to neck 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 Cervical radiculitis Brachial neuritis or radiculitis nos Cervical spondylosis with myelopathy Spondylolisthesis of cervical region Acquired spondylolisthesis Spondylolisthesis, acquired Acquired spondylolisthesis Spinal instabilities of cervical region Unspecified musculoskeletal disorders and symptoms referable to neck 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 documented in this encounter [employer] Phone: evaluation note* Diagnosis Degenerative cervical disc Degeneration of cervical intervertebral disc documented in this encounter [employer] Phone: evaluation note* Diagnosis Cervical radiculitis Brachial neuritis or radiculitis nos Cervical spondylosis with myelopathy Spondylolisthesis of cervical region Acquired spondylolisthesis Spondylolisthesis, acquired Acquired spondylolisthesis Spinal instabilities of cervical region Unspecified musculoskeletal disorders and symptoms referable to neck 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 Cervical radiculitis Brachial neuritis or radiculitis nos Cervical spondylosis with myelopathy Spondylolisthesis of cervical region Acquired spondylolisthesis Spondylolisthesis, acquired Acquired spondylolisthesis Spinal instabilities of cervical region Unspecified musculoskeletal disorders and symptoms referable to neck 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 documented in this encounter [employer] Phone: evaluation note* Diagnosis Paroxysmal atrial fibrillation (CMS-HCC)- Primary Atrial fibrillation Anticoagulated on Coumadin History of mitral valve replacement Heart valve replaced by other means documented [facility]* Diagnosis Cervical spondylosis- Primary Cervical spondylosis without myelopathy documented in this encounter [facility]* Diagnosis Essential hypertension (CMS/HCC) Unspecified essential hypertension documented in this encounter [facility]* Diagnosis Paroxysmal atrial fibrillation (CMS-HCC)- Primary Atrial fibrillation Anticoagulated on Coumadin History of mitral valve replacement Heart valve replaced by other means documented in this encounter [facility]* Diagnosis SHANNAN (obstructive sleep apnea)- Primary Obstructive sleep apnea (adult) (pediatric) Paroxysmal atrial fibrillation (CMS/HCC) Atrial fibrillation Essential hypertension (CMS/HCC) Unspecified essential hypertension History of mitral valve replacement Heart valve replaced by other means Morbidly obese (CMS/HCC) Morbid obesity Pure hypercholesterolemia (CMS/HCC) Pure hypercholesterolemia 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) Chronic fatigue Other malaise and fatigue Claustrophobia (CMS/HCC)- Primary Other isolated or specific phobias documented in this encounter [facility]* Diagnosis Premature atrial complex- Primary Supraventricular premature beats Nonrheumatic mitral valve regurgitation Paroxysmal atrial fibrillation (CMS-HCC) Atrial fibrillation Anticoagulated on Coumadin History of mitral valve replacement Heart valve replaced by other means 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) Primary hypertension Unspecified essential hypertension documented in this encounter [facility]* Diagnosis Premature atrial complex Supraventricular premature beats documented in this encounter [facility]* Diagnosis Paroxysmal atrial fibrillation (CMS-HCC) Atrial fibrillation Anticoagulated on Coumadin History of mitral valve replacement Heart valve replaced by other means [facility] Attachments The following attachments cannot be sent through Care Everywhere. * Atrial Fibrillation (Welsh) documented in [facility]ructionsNot on filedocumented in this encounterPro[facility] SystemInstructionsNot on filedocumented in this encounterPro[facility] SystemInstructionsNot on filedocumented in this encounterProMedial Health SystemInstructionsNot on filedocumented in this encounterProMedi[facility] SystemInstructionsNot on filedocumented in this encounterProMedica Health SystemInstructionsNot on filedocumented in this encounterBet[facility] Summary Purpose Family History No Family History Records Found Relationship Condition Age at Onset Recorded Date/T joe Not Specified Hypertension Unknown High blood cholesterol Unknown Advance Directives No Advanced Directives Records FoundLatest Code Status on File Code Status Date Activated Date Inactivated Comments Full Code - Default 08/07/2022 12:45 PM 08/09/2022 7:33 PM This is order is used when code status has not been discussed with the patient, or code status is otherwise unknown/unconfirmed To update the patient's code status, place a code status order. Do not modify or discontinue any currently active code status orders. Latest Code Status on File Code Status Date Activated Date Inactivated Comments Full Code 08/10/2022 6:14 PM 08/25/2022 6:50 PM Advance Directive Response Recorded Date/ Time Advance Directives No November 24, 2 024 5:02pm Date Activated Date Inactivated Comments 08/10/2022 6:14 PM 08/25/2022 6:50 PM Latest Code Status on File Code Status Date Activated Date Inactivated Comments Full Code 11/04/2022 6:10 AM 11/04/2022 3:32 PM Latest Code Status on File Code Status Date Activated Date Inactivated Comments Full Code 11/04/2022 6:10 AM 11/04/2022 3:32 PM Latest Code Status on File Code Status Date Activated Date Inactivated Comments Full Code 11/04/2022 6:10 AM 11/04/2022 3:32 PM Latest Code Status on File Code Status Date Activated Date Inactivated Comments Full Code 11/04/2022 6:10 AM Date Activated Date Inactivated Comments 08/10/2022 6:14 PM 08/25/2022 6:50 PM Chief Complaint and Reason for Visit Chief Complaint right thumb cut Reason for Referral Specialty Diagnoses / Procedures Referred By Contac t Referred To Contact Radiology Diagnoses Degenerative cervical disc Procedures [place] FOR SURGICAL PROCEDURES Delmer Schneider MD [address] [place] [address] Referral ID Status Reason Start Date Expiration Date Visits Re quested Visits Authorized [id number] Closed 11/03/2022 11/03/2023 1 1 Additional Source Comments (unrecognized sect ion and content) No Status Records FoundNo Status Records FoundNo Status Records FoundNo Status Records FoundNo Status Records FoundNo Status Records FoundNo Status Records FoundNo Status Records FoundNo Status Records FoundNo Status Records Found INFORMATION SOURCE (unrecogn ized section and content) DATE CREATED AUTHOR 07/04/2019 [facility] DATE CREATED AUTHOR AUTHOR'S ORGANIZ ATION 07/29/2022 [facility] DATE CREATED AUTHOR AUTHOR'S ORGANIZ ATION 08/20/2022 [facility] DATE CREATED AUTHOR AUTHOR'S ORGANIZ ATION 12/28/2022 [facility] DATE CREATED AUTHOR AUTHOR'S ORGANIZ ATION 01/11/2023 [facility] DATE CREATED AUTHOR AUTHOR'S ORGANIZ ATION 03/19/2023 [facility] DATE CREATED AUTHOR AUTHOR'S ORGANIZ ATION 08/13/2023 [facility] DATE CREATED AUTHOR AUTHOR'S ORGANIZ ATION 06/29/2024 [facility] EPIC DATE CREATED AUTHOR AUTHOR'S ORGANIZ ATION 08/24/2024 [facility] DATE CREATED AUTHOR AUTHOR'S ORGANIZ ATION 09/20/2024 [facility] Reason for Visit (unrecogniz ed section and content) Reason Comments Atrial Fibrillation New onset afib with RVR noted when getting prepped for surgery this am Specialty Diagnoses / Procedures Referred By Zana ovalle Referred To Contact Diagnoses Atrial fibrillation (CMS/HCC) Atrial fibrillation with rapid ventricular response (CMS/HCC) Procedures Pradeep Gould, [address] [facility] [address] [address] [place] [address] [facility] [address] [place] [address] Referral ID Status Reason Start Date Expiration Date Visits Re quested Visits Authorized [id number] 1 1 Reason Onset Date Comments Med Refill 08/24/2023 Reason Onset Date Comments Med Refill 10/01/2023 Reason Comments Med Refill Baclofen , Rosuvasta tin- would like to see if you can rx Gabapentin instead of pain mgt. Specialty Diagnoses / Procedures Referred By Zana ovalle Referred To Contact Radiology Diagnoses Encounter for examination for normal comparison or control in clinical research program Procedures MRI COMPARISON OF OUTSIDE FILMS Delmer Schneider MD [address] [place] [address] Referral ID Status Reason Start Date Expiration Date Visits Re quested Visits Authorized [id number] Closed 10/02/2022 10/02/2023 1 1 Specialty Diagnoses / Procedures Referred By Zana ovalle Referred To Contact Diagnoses Cervical radiculitis Cervical spondylosis with myelopathy Spondylolisthesis of cervical region Spondylolisthesis, acquired Spinal instabilities of cervical region 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 1. Procedures TN ARTHRD ANT INTERBODY DECOMPRESS CERVICAL BELW C2 CERVICAL DISCECTOMY FUSION ANTERIor plating C5, C6, C7, T1 Delmer Schneider MD [address] [place] [address] [facility] Phone: [phone] Referral ID Status Reason Start Date Expiration Date Visits Re quested Visits Authorized [id number] 1 1 Reason Onset Date Comments Med Refill 04/24/2024 Reason Onset Date Comments Med Refill 05/02/2024 Reason Comments Follow-up 16 mo f/u-l/s RDG-hi gh hear rate-denied sooner appt-sched appt w pt Reason Onset Date Comments Med Refill 09/18/2024 Ordered Prescriptions (unrec ognized section and content) Prescription Sig Dispensed Refills Start Date End Da te metoprolol tartrate (LOPRESSOR) 50 mg tablet Take 1 tablet (50 mg total) by mouth 2 (two) times a day. 60 each 11 08/09/2022 08/09/2023 apixaban (ELIQUIS) 5 mg tablet Take 1 tablet (5 mg total) by mouth 2 (two) times a day. 60 each 0 08/09/2022 09/08/2022 Prescription Sig Dispensed Refills Start Date End Da te doxycycline hyclate (VIBRA-TABS) 100 MG tablet Take 1 tablet by mouth 2 times daily for 5 days 10 tablet 0 11/04/2022 11/09/2022 ondansetron (ZOFRAN) 4 MG tablet Take 1 tablet by mouth every 8 hours as needed for Nausea or Vomiting 12 tablet 0 11/04/2022 11/08/2022 oxyCODONE-acetaminophen (PERCOCET) 7.5-325 MG per tabletIndications:Cervic al radiculitis,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 Take 1 tablet by mouth every 4 hours as needed for Pain for up to 7 days. Intended supply: 30 days Max Daily Amount: 6 tablets 42 tablet 0 11/04/2022 11/11/2022 Scheduled Active and Recently Administ ered Medications (unrecognized section and content) Medication Order 08/07/2022 08/08/2022 08/09/2022 apixaban (ELIQUIS) tablet 5 mg 5 mg, oral, 2 times daily, First dose on 08/08/22 at 1115, Indication: Atrial Fibrillation 1109 (Given - Provider: Katherine Ramos RN)2055 (Given - Provider: Rajesh Palmer, MYRIAM) 0939 (Given - Provider: Lazara Kan, RN) atorvastatin (LIPITOR) tablet 80 mg 80 mg, oral, Nightly, First dose on 08/08/22 at 2100 2054 (Given - Provider: Rajesh Palmer, MYRIAM) baclofen (LIORESAL) tablet 20 mg 20 mg, oral, Daily, First dose on 08/08/22 at 1045 1109 (Given - Provider: Katherine Ramos RN) 0939 (Given - Provider: Lazara Kan, RN) cyanocobalamin (VITAMIN B-12) tablet 100 mcg 100 mcg, oral, Daily, First dose on 08/08/22 at 1045 1109 (Given - Provider: Katherine Ramos RN) 0942 (Given - Provider: Lazara Kan, RN) dilTIAZem (CARDIZEM) bolus from infusion 10 mg (COMPLETED) 10 mg, intravenous, Administer over 2 Minutes, Once, On 08/08/22 at 0045, For 1 dose, Bolus from infusion. 0037 (Bolus from Bag - Provider: Bhavana Dent RN) dilTIAZem (CARDIZEM) injection 10 mg (COMPLETED) 10 mg, intravenous, Once, On Wed08/07/22 at 0904, For 1 dose, For IV Push - administer over 2 minutes with continuous ECG and blood pressure monitoring 0929 (Given - Provider: Bj Steen, MYRIAM) gabapentin (NEURONTIN) capsule 300 mg 300 mg, oral, 2 times daily, First dose on 08/08/22 at 1045 1109 (Given - Provider: Katherine Ramos RN)2054 (Given - Provider: Rajesh Palmer, MYRIAM) 0939 (Given - Provider: Lazara Kan, RN) metoprolol tartrate (LOPRESSOR) tablet 25 mg (CANCELED) 25 mg, oral, 2 times daily, First dose on 08/08/22 at 1115 1109 (Given - Provider: Katherine Ramos RN)2053 (Given - Provider: Rajesh Palmer, MYRIAM) metoprolol tartrate (LOPRESSOR) tablet 50 mg 50 mg, oral, 2 times daily, First dose (after last modification) on 08/09/22 at 0900 0938 (Given - Provider: Lazara Kan, MYRIAM) oxymetazoline (AFRIN) nasal spray 2 spray 2 spray, Each Nostril, 2 times daily, First dose on 08/08/22 at 1345 1409 (Given - Provider: Katherine Ramos RN)2055 (Given - Provider: Rajesh Palmer, MYRIAM) 0940 (Not Given - Provider: Lazara Kan, MYRIAM - Reason: Other - Comment: Only at night.) pantoprazole (PROTONIX) EC tablet 40 mg 40 mg, oral, Every morning before breakfast, First dose on 08/09/22 at 0700, Do not crush, chew, or split. 0605 (Given - Provider: Rajesh Palmer RN) sodium chloride 0.9 % bolus 250 mL (COMPLETED) 250 mL, intravenous, at 1,000 mL/hr, Administer over 15 Minutes, Once, On Wed08/07/22 at 0841, For 1 dose 0914 (New Bag - Provider: Bj Steen RN)1056 (Stopped - Provider: Sisi Fairbanks RN) sodium chloride 0.9 % flush 10 mL(Linked Group 1) 10 mL, intravenous, 2 times daily, First dose on Wed08/07/22 at 1246 1830 (Override Pull - Provider: Jackie Hardy RN)2019 (Given - Provider: Bhavana Dent RN) 0843 (Not Given - Provider: Katherine Ramos RN - Reason: Other - Comment: IVF)2054 (Given - Provider: Rajesh Palmer, RN) 0939 (Given - Provider: Lazara Kan, RN) Continuous Medication Order 08/07/2022 08/08/2022 08/09/2022 dilTIAZem HCl in 0.9% NaCL (CARDIZEM) 125 mg/125 mL (1 mg/mL) infusion (CANCELED) 5-15 mg/hr (5-15 mL/hr), intravenous, Continuous, Starting on Wed08/07/22 at 1203, GOAL EFFECT: Decrease HR to LESS than 110 BPM INITIAL RATE: 5 mg/hr USUAL DOSE RANGE: 5 - 15 mg/hr TITRATION DOSE: 2.5 mg/hr TITRATION FREQUENCY: 30 min CONTACT PRESCRIBER: -HR LESS than 60 BPM -HR GREATER than 120 BPM -SBP LESS than 80 mmHg -SBP GREATER than 180 mmHg -Prolongation of TN interval + QRS complex *Individual cases may deviate from parameters and would REQUIRE an order from the provider documented in the patient record* 1359 (New Bag - Provider: Bj Steen RN)1439 (Rate/Dose Change - Provider: Sisi Fairbanks RN - Comment: Heart rate 130)1826 (Rate/Dose Change - Provider: Jackie Hardy RN)2134 (Rate/Dose Change - Provider: Bhavana Dent RN)2216 (Rate/Dose Change - Provider: Bhavana Dent RN) 0020 (New Bag - Provider: Bhavana Dent RN)0818 (Rate/Dose Change - Provider: Katherine Ramos RN)1018 (Rate/Dose Change - Provider: Katherine Ramos RN)1324 (Rate/Dose Change - Provider: Katherine Ramos RN)1400 (Rate/Dose Change - Provider: Katherine Ramos RN)1451 (Rate/Dose Change - Provider: Katherine Ramos RN)1600 (Rate/Dose Change - Provider: Katherine Ramos RN)2058 (New Bag - Provider: Rajesh Palmer RN) 0843 (Stopped - Provider: Lazara Kan, RN) PRN Medication Order 08/07/2022 08/08/2022 08/09/2022 acetaminophen (TYLENOL) tablet 650 mg 650 mg, oral, Every 6 hours PRN, mild pain, Starting on Wed08/07/22 at 1244 1500 (Given - Provider: Katherine Ramos RN)2104 (Given - Provider: Rajesh Palmer RN - Comment: Patient complaining of moderate headache pain) 0606 (Given - Provider: Rajesh Palmer RN - Comment: Patient c/o headache pain, 5/10) albuterol 2.5 mg /3 mL (0.083 %) nebulizer solution 2.5 mg 2.5 mg, nebulization, Every 4 hours PRN, wheezing, Starting on Wed08/08/22 at 1017 0006 (Given - Provid er: Jelani Lagos) ondansetron (PF) (ZOFRAN) injection 4 mg(Linked Group 2) 4 mg, intravenous, Every 8 hours PRN, vomiting, nausea, Starting on Wed08/07/22 at 1244, -ONLY give IV if patient is unable to take orally. -If inadequate response within 30 minutes, proceed to next-line agent or contact provider if no further options ordered. ondansetron ODT (ZOFRAN-ODT) disintegrating tablet 4 mg(Linked Group 2) 4 mg, oral, Every 8 hours PRN, vomiting, nausea, Starting on Wed08/07/22 at 1244, -Give IV if patient is unable to take orally. -If inadequate response within 30 minutes, proceed to next-line agent or contact provider if no further options ordered. For ODT tablets: -Do not remove from blister pack until just before administering. -Patient should allow tablet to dissolve on tongue. sodium chloride 0.9 % flush 10 mL(Linked Group 1) 10 mL, intravenous, As needed, line care, Starting on Wed08/07/22 at 1244 Linked Groups Order Group 1: Insert peripheral IV (COMPLETED) STAT, Once, On Wed08/07/22 at 1245, For 1 occurrence And Maintain IV access (CANCELED) Until discontinued, Starting on Wed08/07/22 at 1245, Until Specified And Saline lock IV (COMPLETED) Routine, Once, On Wed08/07/22 at 1245, For 1 occurrence And sodium chloride 0.9 % flush 10 mLJump to med 10 mL, intravenous, 2 times daily, First dose on Wed08/07/22 at 1246 And sodium chloride 0.9 % flush 10 mLJump to med 10 mL, intravenous, As needed, line care, Starting on Wed08/07/22 at 1244 Group 2: ondansetron ODT (ZOFRAN-ODT) disintegrating tablet 4 mgJump to med 4 mg, oral, Every 8 hours PRN, vomiting, nausea, Starting on Wed08/07/22 at 1244
-Give IV if patient is unable to take orally. -If inadequate response within 30 minutes, proceed to next-line agent or contact provider if no further options ordered. For ODT tablets: -Do not remove from blister pack until just before administering. -Patient should allow tablet to dissolve on tongue.
Or ondansetron (PF) (ZOFRAN) injection 4 mgJump to med 4 mg, intravenous, Every 8 hours PRN, vomiting, nausea, Starting on Wed08/07/22 at 1244
-ONLY give IV if patient is unable to take orally. -If inadequate response within 30 minutes, proceed to next-line agent or contact provider if no further options ordered.
Scheduled Medication Order 11/02/2022 11/03/2022 11/04/2022 acetaminophen (TYLENOL) tablet 1,000 mg (COMPLETED) 1,000 mg, Oral, ONCE, 1 dose, On Wed11/04/22 at 0630, Administer 60 minutes prior to surgery., Pre-op (day of surgery) 0641 (Given - Provid er: Manuel Saenz RN) albuterol (PROVENTIL) nebulizer solution 2.5 mg 2.5 mg, Nebulization, EVERY 4 HOURS WHILE AWAKE, First dose on Wed11/04/22 at 0800, Until Discontinued, Initiate RT Bronchodilator Protocol: No, Pre-op (day of surgery) 0800 (Due)1200 (Due) 1600 (Due)2000 (Due) ceFAZolin (ANCEF) 2000 mg in dextrose 3 % 50 mL IVPB (duplex) (COMPLETED) 2,000 mg, IntraVENous, ONCE, 1 dose, On Wed11/04/22 at 0630, Antimicrobial Indications: Surgical Prophylaxis, Administer within 1 hour prior to incision. Recommend to repeat in 3-4 hours after initial dose if still intra-op., Pre-op (day of surgery) 0756 (Given - Provid er: Akila Owusu, PORTER - 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) dexamethasone (PF) (DECADRON) injection 8 mg 8 mg, IntraVENous, ONCE, On Wed11/04/22 at 0630, For 1 dose, Administer 30 minutes prior to surgery., Pre-op (day of surgery) 0630 (Due) diazePAM (VALIUM) tablet 5 mg (COMPLETED) 5 mg, Oral, ONCE, 1 dose, On Wed11/04/22 at 0800 0744 (Given - Provid er: Maria Appiah RN) sodium chloride flush 0.9 % injection 5-40 mL 5-40 mL, IntraVENous, EVERY 12 HOURS SCHEDULED (2 times per day), First dose on Wed11/04/22 at 0900, Until Discontinued, For Line Patency: Peripheral IV = 5 mL; Midline or Central Line = 10 mL/lumen. If following IV push medication, administer flush at same rate as the IV push. Flush volume is determined by type of infusion therapy being given. For non-viscous solutions use: Peripheral IV = 5 mL Midline or Central Line = 10 mL/lumen For viscous solutions (i.e. blood components, parenteral nutrition, contrast media, or after obtaining blood sample) use: Peripheral IV = 10 mL Midline or Central Line = 20 mL/lumen, Pre-op (day of surgery) 0900 (Due)2100 (Due) sodium chloride flush 0.9 % injection 5-40 mL 5-40 mL, IntraVENous, EVERY 12 HOURS SCHEDULED (2 times per day), First dose on Wed11/04/22 at 2100, Until Discontinued, For Line Patency: Peripheral IV = 5 mL; Midline or Central Line = 10 mL/lumen. If following IV push medication, administer flush at same rate as the IV push. Flush volume is determined by type of infusion therapy being given. For non-viscous solutions use: Peripheral IV = 5 mL Midline or Central Line = 10 mL/lumen For viscous solutions (i.e. blood components, parenteral nutrition, contrast media, or after obtaining blood sample) use: Peripheral IV = 10 mL Midline or Central Line = 20 mL/lumen, PACU only 2100 (Due) Continuous Medication Order 11/02/2022 11/03/2022 11/04/2022 lactated ringers IV soln infusion IntraVENous, at 125 mL/hr, CONTINUOUS, Starting on Wed11/04/22 at 0630, Pre-op (day of surgery) 0638 (New Bag - Prov ider: Manuel Saenz RN)0744 (Paused - Provider: PORTER Mcneal CRNA - Comment: Switch to gravity)0745 (Restarted - Provider: Akila Owusu APRN - 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)0808 (New Bag - Provider: Akila Owusu APRN - 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)0933 (New Bag - Provider: Akila Owusu APRN - 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)1016 (New Bag - Provider: Akila Owusu APRN - 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)1112 (Stopped - Provider: Akila Owusu APRN - 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) lactated ringers IV soln infusion IntraVENous, at 125 mL/hr, CONTINUOUS, Starting on Wed11/04/22 at 1200, PACU only 1200 (Due) PRN Medication Order 11/02/2022 11/03/2022 11/04/2022 0.9 % sodium chloride infusion IntraVENous, at 5-250 mL/hr, PRN, if patient receiving piggyback infusions and maintenance fluids are not ordered OR KVO fluids to protect IV site / prevent frequent line interruptions/ long duration, Starting on Wed11/04/22 at 0609, For piggyback infusion, administer at same rate as piggyback for a total of 25 mL. Enter 25 mL into dose field and piggyback rate into rate field of order. If piggyback is infusing at a rate less than 100 mL/hr, enter 25 mL into dose field and 100 mL/hr into rate field of order. For KVO fluids, enter rate of 20 mL/hr or less into rate field of order., Pre-op (day of surgery) 0.9 % sodium chloride infusion IntraVENous, at 5-250 mL/hr, PRN, if patient receiving piggyback infusions and maintenance fluids are not ordered OR KVO fluids to protect IV site / prevent frequent line interruptions/ long duration, Starting on Wed11/04/22 at 0610, For piggyback infusion, administer at same rate as piggyback for a total of 25 mL. Enter 25 mL into dose field and piggyback rate into rate field of order. If piggyback is infusing at a rate less than 100 mL/hr, enter 25 mL into dose field and 100 mL/hr into rate field of order. For KVO fluids, enter rate of 20 mL/hr or less into rate field of order., Pre-op (day of surgery) 0.9 % sodium chloride infusion 25 mL, IntraVENous, at 100 mL/hr, PRN, If patient receiving piggyback infusions without ordered maintenance IV fluids or with frequent/long duration piggyback infusions, Starting on Wed11/04/22 at 1143, Administer at the same rate as the piggyback being infused., PACU only albuterol (PROVENTIL) nebulizer solution 2.5 mg 2.5 mg, Nebulization, ONCE PRN, 1 dose, Starting on Wed11/04/22 at 1143, Until Jadyn 11/05/22 at 1143, Wheezing, Initiate RT Bronchodilator Protocol: No, PACU only fentaNYL (SUBLIMAZE) injection 25 mcg 25 mcg, IntraVENous, EVERY 5 MIN PRN, 4 doses, Starting on Wed11/04/22 at 1143, Until Discontinued, Pain Moderate (4-6), Phase I - Initial therapy for moderate pain., PACU only labetalol (NORMODYNE;TRANDATE) injection 5 mg 5 mg, IntraVENous, EVERY 15 MIN PRN, 2 doses, Starting on Wed11/04/22 at 1143, Until Discontinued, High Blood Pressure, for SBP greater than 180 mmHg for 2 consecutive measurements taken from different sites., Inform provider if SBP is still greater than 180 mmHg, 10 minutes after second antihypertensive dose is administered., PACU only mastisol adhesive LIQD (CANCELED) PRN, Starting on Wed11/04/22 at 0827, Intra-op 0827 (Given - Provid er: Jenny Le RN) meperidine (DEMEROL) injection 12.5 mg 12.5 mg, IntraVENous, EVERY 5 MIN PRN, 4 doses, Starting on Wed11/04/22 at 1143, Until Discontinued, Shivering, , May give every 5 minutes to max of 50mg., PACU only methylPREDNISolone acetate (DEPO-MEDROL) injection (CANCELED) PRN, Starting on Wed11/04/22 at 0827, Until Wed11/04/22 at 1129, Intra-op 0827 (Given - Provid er: Delmer Schneider MD - Comment: DELIVERED TO BACK TABLE) ondansetron (ZOFRAN) injection 4 mg 4 mg, IntraVENous, ONCE PRN, 1 dose, Starting on Wed11/04/22 at 1143, Until Jadyn 11/05/22 at 1143, Nausea, Initial antiemetic therapy., PACU only oxyCODONE (ROXICODONE) immediate release tablet 10 mg (COMPLETED) 10 mg, Oral, PRN, 1 dose, Starting on Wed11/04/22 at 1143, Until Wed11/04/22 at 2359, Pain Severe (7-10), PHASE II, PACU & Post-op 1257 (Given - Provid er: Manuel Saenz RN) sodium chloride flush 0.9 % injection 5-40 mL 5-40 mL, IntraVENous, PRN, Starting on Wed11/04/22 at 0609, Until Discontinued, Line Care, After every IV line use, For Line Patency: Peripheral IV = 5 mL; Midline or Central Line = 10 mL/lumen. If following IV push medication, administer flush at same rate as the IV push. Flush volume is determined by type of infusion therapy being given. For non-viscous solutions use: Peripheral IV = 5 mL Midline or Central Line = 10 mL/lumen For viscous solutions (i.e. blood components, parenteral nutrition, contrast media, or after obtaining blood sample) use: Peripheral IV = 10 mL Midline or Central Line = 20 mL/lumen, Pre-op (day of surgery) sodium chloride flush 0.9 % injection 5-40 mL 5-40 mL, IntraVENous, PRN, Starting on Wed11/04/22 at 0610, Until Discontinued, Line Care, After every IV line use, For Line Patency: Peripheral IV = 5 mL; Midline or Central Line = 10 mL/lumen. If following IV push medication, administer flush at same rate as the IV push. Flush volume is determined by type of infusion therapy being given. For non-viscous solutions use: Peripheral IV = 5 mL Midline or Central Line = 10 mL/lumen For viscous solutions (i.e. blood components, parenteral nutrition, contrast media, or after obtaining blood sample) use: Peripheral IV = 10 mL Midline or Central Line = 20 mL/lumen, Pre-op (day of surgery) sodium chloride flush 0.9 % injection 5-40 mL 5-40 mL, IntraVENous, PRN, Starting on Wed11/04/22 at 1143, Until Discontinued, Line Care, After every IV line use, For Line Patency: Peripheral IV = 5 mL; Midline or Central Line = 10 mL/lumen. If following IV push medication, administer flush at same rate as the IV push. Flush volume is determined by type of infusion therapy being given. For non-viscous solutions use: Peripheral IV = 5 mL Midline or Central Line = 10 mL/lumen For viscous solutions (i.e. blood components, parenteral nutrition, contrast media, or after obtaining blood sample) use: Peripheral IV = 10 mL Midline or Central Line = 20 mL/lumen, PACU only thrombin kit (CANCELED) PRN, Starting on Wed11/04/22 at 0828, Intra-op 0828 (Given - Provid er: Delmer Schneider MD - Comment: DELIVERED TO BACK TABLE) Care Teams (unrecognized sec tion and content) Insurance Claims Clerk Relationship Specialty Start Date End Date Amirah Zapata MD [address] [place] [address] PCP - General Family Medicine 07/28/22 Insurance Claims Clerk Relationship Specialty Start Date [place] [address] PCP - General Family Medicine 08/26/22 Insurance Claims Clerk Relationship Specialty Start Date End [place] [address] PCP - General Family Medicine 08/26/22 Insurance Claims Clerk Relationship Specialty Start Date End Date Amirah Zapata MD [address] [place] [id number] PCP - General Family Medicine 01/05/23 Insurance Claims Clerk Relationship Specialty Start Date End Date Amirah Zapata MD [facility] [place] [address] PCP - General Family Medicine 08/26/22 Team Status: Active Member Role Status Dates Keith Galloway DO Primary Care Provider Active Team Status: Inactive Member Role Status Dates Keith Galloway DO Primary Care Provider Active Start: November 25, 2023 End: November 25, 2023 Danita Zabala APRN Attending Provider Active Start: November 25, 2023 End: November 25, 2023 Insurance Claims Clerk Relationship Specialty Start Date End Date Amirah Zapata MD [facility] [place] [address] PCP - General Family Medicine 08/26/22 Insurance Claims Clerk Relationship Specialty Start Date End Date Amirah Zapata MD [address] [place] [address] PCP - General Family Medicine 01/05/23 Insurance Claims Clerk Relationship Specialty Start Date End Date Amirah Zapata MD [address] [place] [address] PCP - General Family Medicine 01/05/23 Insurance Claims Clerk Relationship Specialty Start Date End Date [place] [address] PCP - General Family Medicine 08/26/22 Insurance Claims Clerk Relationship Specialty Start Date End Date Amirah Zapata MD [facility] [place] [address] PCP - General Family Medicine 08/26/22 Insurance Claims Clerk Relationship Specialty Start Date End Date Amirah Zapata MD [address] [place] [address] PCP - General Family Medicine 01/05/23 Insurance Claims Clerk Relationship Specialty Start Date End Date Amirah Zapata MD [address] [place] [address] PCP - General Family Medicine 01/05/23 Insurance Claims Clerk Relationship Specialty Start Date End Date [facility] [place] [id number] PCP - General Family Medicine 08/26/22 Insurance Claims Clerk Relationship Specialty Start Date End Date Amirah Zapata MD [address] [place], [place] [id number] PCP - General Family Medicine 01/05/23 Insurance Claims Clerk Relationship Specialty Start Date End Date Amirah [facility]apata [facility], [place] [id number] PCP - General Family Medicine 08/26/22 Insurance Claims Clerk Relationship Specialty Start Date End Date Amirah Zapata [facility] [place] [address] PCP - General Family Medicine 08/26/22 Goals (unrecognized section and content) Goals may be documented in a n alternate section FOR RECORDS PERTAINING TO PATIENTS WHO ARE OR HAVE BEEN ENROLLED IN A CHEMICAL DEPENDENCY/SUBSTANCEABUSE PROGRAM, SOME INFORMATION MAY BE OMITTED. This clinical summary was aggregated from multiple sources. Caution should be exercised in using it in the provision of clinical care. This summary normalizes information from multiple sources, and as a consequence, information in this document may materially change the coding, format and clinical context of patient data. In addition, data may be omitted in some cases. CLINICAL DECISIONS SHOULD BE BASED ON THE PRIMARY CLINICAL RECORDS. [facility]. provides no warranty or guarantee of the accuracy or completeness of information in this document.
--- NOTE | 2024-09-25 12:30 | P.CN_ITS ---
Consult Note: HPI Data of Consult Patient: known to practice within the last 3 years Consult date: 09/25/24 Requesting Physician: Vanessa Medrano MD Primary Care Provider: AMIRAH ZAPATA Consult Narrative Reason for consult: low back, bilateral lower extremity pain Narrative: 58yom who presents for assessment. continues to have low back and leg symptoms. imaging reviewed, which is significant for moderate canal stenosis at l3-4 and l4-5. has undergone various interventional modalities, with limited benefit. con tinues in a series of provider directed home exercises >6 weeks, without lasting benefit. uses gabapentin and baclofen. cc:: CC: Vanessa Medrano MD Review of Systems ROS Status of ROS 10 or more systems reviewed and unremark able except as noted in history and below [facility] Medical History S/P extracorporeal shock wave therapy ?Z98.890 - Other specified postprocedural states (ICD-10) Neck pain ?M54.2 - Cervicalgia (ICD-10) Low back pain ?M54.50 - Low back pain, unspecified (ICD-10) Numbness and tingling ?R20.0 - Anesthesia of skin (ICD-10) ?R20.2 - Paresthesia of skin (ICD-10) Obesity ?E66.9 - Obesity, unspecified (ICD-10) Hiatal hernia ?K44.9 - Diaphragmatic hernia without obstruction or gangrene (ICD-10) Sleep apnea ?G47.30 - Sleep apnea, unspecified (ICD-10) Heart valve disease ?I38 - Endocarditis, valve unspecified (ICD-10) Irregular heartbeat ?I49.9 - Cardiac arrhythmia, unspecified (ICD-10) High cholesterol ?E78.00 - Pure hypercholesterolemia, unspecified (ICD-10) Hypertension ?I10 - Essential (primary) hypertension (ICD-10) Surgical History H/O arthroscopic knee surgery ?Z98.890 - Other specified postprocedural states (ICD-10) History of open heart surgery ?Z98.890 - Other specified postprocedural states (ICD-10) H/O arthroscopy of shoulder ?Z98.890 - Other specified postprocedural states (ICD-10) H/O cervical spine surgery ?Z98.890 - Other specified postprocedural states (ICD-10) Meds Home Medications and Allergies Home Medications ?Medication ?Instructions ?Recorded ?Confirmed ?Type acetaminophen 325 mg tablet (Aphen) 325 mg PO Q6H PRN pain 02/09/23 08/02/23 History aspirin 81 mg tablet,delayed 81 mg PO DAILY 02/09/23 08/02/23 History release baclofen 20 mg tablet 20 mg PO TID 02/09/23 08/02/23 History cholecalciferol (vitamin D3) 25 1,000 unit PO DAILY 02/09/23 08/02/23 History mcg (1,000 unit) capsule (Vitamin D3) gabapentin 300 mg capsule 600 mg PO BEDTIME 02/09/23 08/02/23 History lisinopril 20 1 tab PO QDAY 02/09/23 08/02/23 History mg-hydrochlorothiazide 25 mg tablet metoprolol tartrate 25 mg tablet 12.5 mg PO Q12H 02/09/23 08/02/23 History omeprazole 40 mg capsule,delayed 40 mg PO DAILY 02/09/23 08/02/23 History release rosuvastatin 20 mg tablet (Crestor) 20 mg PO DAILY 02/09/23 08/02/23 History vitamin B complex (B 1 tab PO DAILY 02/09/23 08/02/23 History Complex-Vitamin B12 tablet) warfarin 4 mg tablet 4 mg PO DAILY 02/09/23 08/02/23 History diazepam 10 mg tablet (Valium) 10 mg PO ONCE 08/02/23 08/02/23 History gabapentin 300 mg capsule 300 mg PO TID #90 caps 03/27/24 Rx gabapentin 300 mg capsule 300 mg PO TID #90 caps 05/22/24 Rx gabapentin 300 mg capsule 300 mg PO TID #90 caps 06/26/24 Rx gabapentin 300 mg capsule See Rx Instructions .Route 07/31/24 Rx .COMPLEX #90 caps gabapentin 300 mg capsule 600 mg (2 x 300 mg) PO BID #120 08/21/24 Rx caps Allergies Allergy/AdvReac Type Severity Reaction Status Date / Time codeine Allergy Vomiting Verified 05/24/23 07:47 Exam Narrative Exam Narrative: Psych-alert and oriented x 3. Attentive and appropriate, constitutionally normal, displays normal mood and affect per situation. There are no obvious deficits in memory, reasoning, or intellect.? Skin-no obvious rashes, bruising, erythema noted to the patient's area of pain.? Extremities- extremities are warm with minimal edema and palpable pulses. Lumbar-tenderness to palpation noted in the lumbar spine and paraspinal musculature. Pain is not elicited with flexion, extension, and lateral rotation of the lumbar spine. Range of motion is not diminished with these motions. Facet loading maneuvers are negative.? Strength-noted to be unremarkable with the exception of decreased strength rated at 4 out of 5 in bilateral quadriceps femoris, anterior tibialis. Sensory-no notable sensory deficits in the bilateral lower extremities to touch or pinprick in all dermatomal distributions with the exception to decreased sensation to the bilateral L3, 4 dermatomal distribution Coordination remains intact.? Gait remains non-antalgic. Assessment and Plan Assessment and Plan (1) Lumbar stenosis with neurogenic claudication: Plan 58yom who presents for assessment. failed conservative measures, as noted. given symptoms and imaging findings, he may benefit from vertiflex at l3-4 and l4-5. he would like to move forward with this. meds reviewed, no changes. follow up after procedure.
== END 2024-09-25 11:32 | disposition home or self-care (01) ==
LOC: PM 11:31
PROVIDERS: PCP Family Medicine; Visit Provider Anesthesiology
DX: M48.062 Spinal stenosis, lumbar region with neurogenic claudication (principal)
CPT/HCPCS: G0463

== ENCOUNTER 2024-11-09 15:16 | Outpatient (OUT) | payer BC, SELFPAY ==
--- NOTE | 2024-11-09 16:02 | PM.CN ---
Consult Note: HPI Data of Consult Patient: known to practice within the last 3 years Consult date: 09/25/24 Requesting Physician: Flor Javier NP Primary Care Provider: AMIRAH ZAPATA Consult Narrative Reason for consult: low back, bilateral lower extremity pain Narrative: 59yom who presents for assessment. continues to have low back and leg symptoms. imaging reviewed, which is significant for moderate canal stenosis at l3-4 and l4-5. has undergone various interventional modalities, with limited benefit. continues in a series of provider directed home exercises >6 weeks, without lasting benefit. uses gabapentin and baclofen. unfortunately his insurance will not cover vertiflex which pt is extremely upset about. cc:: CC: Flor Javier NP Review of Systems ROS Status of ROS 10 or more systems reviewed and unremarkable except as noted in history and below Musculoskeletal Reports: back pain PFSH PFSH Medical History S/P extracorporeal shock wave therapy ?Z98.890 - Other specified postprocedural states (ICD-10) Neck pain ?M54.2 - Cervicalgia (ICD-10) Low back pain ?M54.50 - Low back pain, unspecified (ICD-10) Numbness and tingling ?R20.0 - Anesthesia of skin (ICD-10) ?R20.2 - Paresthesia of skin (ICD-10) Obesity ?E66.9 - Obesity, unspecified (ICD-10) Hiatal hernia ?K44.9 - Diaphragmatic hernia without obstruction or gangrene (ICD-10) Sleep apnea ?G47.30 - Sleep apnea, unspecified (ICD-10) Heart valve disease ?I38 - Endocarditis, valve unspecified (ICD-10) Irregular heartbeat ?I49.9 - Cardiac arrhythmia, unspecified (ICD-10) High cholesterol ?E78.00 - Pure hypercholesterolemia, unspecified (ICD-10) Hypertension ?I10 - Essential (primary) hypertension (ICD-10) Surgical History H/O arthroscopic knee surgery ?Z98.890 - Other specified postprocedural states (ICD-10) History of open heart surgery ?Z98.890 - Other specified postprocedural states (ICD-10) H/O arthroscopy of shoulder ?Z98.890 - Other specified postprocedural states (ICD-10) H/O cervical spine surgery ?Z98.890 - Other specified postprocedural states (ICD-10) Meds Home Medications and Allergies Home Medications ?Medication ?Instructions ?Recorded ?Confirmed ?Type acetaminophen 325 mg tablet (Aphen) 325 mg PO Q6H PRN pain 02/09/23 08/02/23 History aspirin 81 mg tablet,delayed 81 mg PO DAILY 02/09/23 08/02/23 History release baclofen 20 mg tablet 20 mg PO TID 02/09/23 08/02/23 History gabapentin 300 mg capsule 600 mg PO BEDTIME 02/09/23 08/02/23 History lisinopril 20 1 tab PO QDAY 02/09/23 08/02/23 History mg-hydrochlorothiazide 25 mg tablet omeprazole 40 mg capsule,delayed 40 mg PO DAILY 02/09/23 08/02/23 History release rosuvastatin 20 mg tablet (Crestor) 20 mg PO DAILY 02/09/23 08/02/23 History vitamin B complex (B 1 tab PO DAILY 02/09/23 08/02/23 History Complex-Vitamin B12 tablet) warfarin 4 mg tablet 4 mg PO DAILY 02/09/23 08/02/23 History gabapentin 300 mg capsule 300 mg PO DAILY 09/25/24 09/25/24 History metoprolol succinate 100 mg 100 mg PO .HS 09/25/24 09/25/24 History tablet,extended release 24 hr semaglutide 0.25 mg or 0.5 mg (2 0.25 mg subcut QWEEK 09/25/24 09/25/24 History mg/3 mL) subcutaneous pen injector (Ozempic) Allergies Allergy/AdvReac Type Severity Reaction Status Date / Time codeine Allergy Vomiting Verified 05/24/23 07:47 Exam Narrative Exam Narrative: Psych-alert and oriented x 3. Attentive and appropriate, constitutionally normal, displays normal mood and affect per situation. There are no obvious deficits in memory, reasoning, or intellect.? Skin-no obvious rashes, bruising, erythema noted to the patient's area of pain.? Extremities- extremities are warm with minimal edema and palpable pulses. Lumbar-tenderness to palpation noted in the lumbar spine and paraspinal musculature. Pain is not elicited with flexion, extension, and lateral rotation of the lumbar spine. Range of motion is not diminished with these motions. Facet loading maneuvers are negative.? Strength-noted to be unremarkable with the exception of decreased strength rated at 4 out of 5 in bilateral quadriceps femoris, anterior tibialis. Sensory-no notable sensory deficits in the bilateral lower extremities to touch or pinprick in all dermatomal distributions with the exception to decreased sensation to the bilateral L3, 4 dermatomal distribution Coordination remains intact.? Gait remains non-antalgic. Assessment and Plan Assessment and Plan (1) Lumbar stenosis with neurogenic claudication: Plan pt is not interested in TFESIs at this time, previously found beneficial. Care Home is not interested in spinal cord stimulation. Declining NS consultation at this time. Due to cost of specialist visits pt would like to transfer care back to PCP. at this time stable on gabapentin 300mg BID. f/u PRN
== END 2024-11-09 15:17 | disposition home or self-care (01) ==
PROVIDERS: PCP Family Medicine; Visit Provider Nurse Practitioner
DX: M48.062 Spinal stenosis, lumbar region with neurogenic claudication (principal)
CPT/HCPCS: G0463